=== PATIENT | female | born 1950 | race Caucasian/White ===

== ENCOUNTER → 2016-09-30 | Outpatient (REF) | payer MEDICARE, OTHER | LOC: M LAB REF 16:26 | PROVIDERS: ATTEND Internal Medicine Medical Oncology | DX: C50.919 Malignant neoplasm of unspecified site of unspecified female breast (principal) ==

== ENCOUNTER → 2016-12-31 | Outpatient (REF) | payer MEDICARE, OTHER | LOC: M LAB REF 17:22 | PROVIDERS: ATTEND Internal Medicine Medical Oncology | DX: C50.919 Malignant neoplasm of unspecified site of unspecified female breast (principal) ==

== ENCOUNTER → 2017-01-28 | Outpatient (REF) | payer MEDICARE, OTHER | LOC: M LAB REF 13:23 | PROVIDERS: ATTEND Internal Medicine Medical Oncology | DX: C50.911 Malignant neoplasm of unspecified site of right female breast (principal) ==

== ENCOUNTER → 2017-02-23 | Outpatient (REF) | payer MEDICARE, OTHER | LOC: M LAB REF 12:52 | PROVIDERS: ATTEND Internal Medicine Medical Oncology | DX: C50.919 Malignant neoplasm of unspecified site of unspecified female breast (principal) ==

== ENCOUNTER → 2017-03-25 | Outpatient (REF) | payer MEDICARE, OTHER ==
[~2017-03-25] MED LIST: ASPI81TAEC PO; CALC1TAB49 PO; CALCIUM CITRATE PO; COMB0.2S OD; Combigan; DITR1TAB PO; EFFE37.527 PO; FLUC10TA PO; GABA-279 PO; IBRA125C PO; IBUP-1114 PO; LETR2.5T2 PO; LIPI20TA PO; MULT1TAB10 PO; PROT1TAB2 PO; VITMTA PO; XGEVINJ SC; [UNRECOGNIZED DRUG - OTHER] PO; femara PO
== END ==
LOC: M LAB REF 13:36
PROVIDERS: ATTEND Internal Medicine Medical Oncology
DX: C50.919 Malignant neoplasm of unspecified site of unspecified female breast (principal)

== ENCOUNTER → 2017-05-25 | Outpatient (REF) | payer MEDICARE, OTHER | LOC: M LAB REF 17:27 | PROVIDERS: ATTEND Internal Medicine Medical Oncology | DX: C50.919 Malignant neoplasm of unspecified site of unspecified female breast (principal) ==

== ENCOUNTER 2017-06-04 10:09 | Outpatient (RCR) | payer MEDICARE, OTHER ==
[2017-06-04] MEDS ORDERED: IBRA125C PO (21:27)
[2017-06-04] MEDS ORDERED: XGEVINJ SC (21:27)
[2017-06-04] MEDS ORDERED: [UNRECOGNIZED DRUG - OTHER] PO (21:27)
[2017-06-04] MEDS ORDERED: CALCIUM CITRATE PO (21:27)
[2017-06-04] MEDS ORDERED: LIPI20TA PO (21:27)
[2017-06-04] MEDS ORDERED: MULT1TAB10 PO (21:27)
[2017-06-04] MEDS ORDERED: PROT1TAB2 PO (21:27)
[2017-06-04] MEDS ORDERED: Combigan (21:27)
[2017-06-04] MEDS ORDERED: EFFE37.527 PO (21:27)
[2017-06-04] MEDS ORDERED: femara PO (21:27)
[2017-06-04] MEDS ORDERED: DITR1TAB PO (21:27)
[2017-06-04] MEDS ORDERED: VITMTA PO (23:04)
[2017-06-04] MEDS ORDERED: GABA-279 PO (23:04)
[2017-06-04] MEDS ORDERED: LETR2.5T2 PO (23:04)
[2017-06-04] MEDS ORDERED: COMB0.2S OD (23:04)
[2017-06-04] MEDS ORDERED: CALC1TAB49 PO (23:04)
[2017-06-04] MEDS ORDERED: IBUP-1114 PO (23:05)
[2017-06-06] MEDS ORDERED: ASPI81TAEC PO (09:29)
[2017-06-06] MEDS ORDERED: FLUC10TA PO (09:30)
== END 2017-06-05 | disposition home or self-care (01) ==
LOC: M PT 10:09
PROVIDERS: ATTEND Orthopaedic Surgery
DX: Z51.89 Encounter for other specified aftercare (principal); M43.06 Spondylolysis, lumbar region
CPT/HCPCS: 97110; 97140; 97162; G8978; G8979

== ENCOUNTER 2017-06-04 21:04 | Inpatient (IN) | payer MEDICARE, OTHER ==
[~2017-06-04] VITALS: Ht 162.6 cm; Wt 80.2 kg
[2017-06-04] MEDS ORDERED: PROT1TAB2 PO (21:27)
[2017-06-04] MEDS ORDERED: DITR1TAB PO (21:27)
[2017-06-04] MEDS ORDERED: MULT1TAB10 PO (21:27)
[2017-06-04] MEDS ORDERED: Combigan (21:27)
[2017-06-04] MEDS ORDERED: LIPI20TA PO (21:27)
[2017-06-04] MEDS ORDERED: IBRA125C PO (21:27)
[2017-06-04] MEDS ORDERED: CALCIUM CITRATE PO (21:27)
[2017-06-04] MEDS ORDERED: XGEVINJ SC (21:27)
[2017-06-04] MEDS ORDERED: [UNRECOGNIZED DRUG - OTHER] PO (21:27)
[2017-06-04] MEDS ORDERED: EFFE37.527 PO (21:27)
[2017-06-04] MEDS ORDERED: femara PO (21:27)
[2017-06-04 21:36] LABS: EOS # 0.1 10^3/uL (0.0-0.50); EOS % 1.2 % (0.0-3.0); IMMATURE GRANULOCYTE % 0.6 % (0-0); LYMPH # 1.8 10^3/uL (1.5-4.5); LYMPH % 38.3 % (24.0-44.0); MEAN CORPUSCULAR HEMOGLOBIN 38.4 pg (27.0-33.0); MEAN CORPUSCULAR HGB CONC 35.9 g/dl (32.0-36.5); MEAN CORPUSCULAR VOLUME 106.9 fl (80.0-96.0); MONO # 0.4 10^3/uL (0.0-0.8); MONO % 8.3 % (0.0-5.0); NEUTROPHILS # 2.5 10^3/uL (1.8-7.7); NEUTROPHILS % 51.6 % (36.0-66.0); PLATELET COUNT, AUTOMATED 197 10^3/uL (150-450); RED CELL DISTRIBUTION WIDTH 12.2 % (11.5-14.5); WHITE BLOOD COUNT 4.8 10^3/uL (4.0-10.0)
[2017-06-04 21:40] LABS: ADD MORPHOLOGY? NO
[2017-06-04 21:45] LABS: INR 0.93
[2017-06-04 21:59] LABS: ANION GAP 8 MEQ/L (8-16); BLOOD UREA NITROGEN 22 MG/DL (7-18); CALCIUM LEVEL 8.4 MG/DL (8.8-10.2); CARBON DIOXIDE LEVEL 23 MEQ/L (21-32); CHLORIDE LEVEL 105 MEQ/L (98-107); CREATININE FOR GFR 1.02 MG/DL (0.55-1.02); GLOMERULAR FILTRATION RATE 57.2 (>45); GLUCOSE, FASTING 169 MG/DL (80-110); POTASSIUM SERUM 3.8 MEQ/L (3.5-5.1); SODIUM LEVEL 136 MEQ/L (136-145)
--- NOTE | 2017-06-04 22:10 | REPUSA ---
CT of the head Clinical history: CVA. Technique: Multiple axial CT images were obtained through the head without administration of contrast . Findings: The ventricles and sulci are symmetric bilaterally. There is no evidence of acute hemorrhag e or infarct. There is no midline shift, mass effect, or extra-axial fluid collection. The osseous st ructures are unremarkable. The visualized paranasal sinuses and mastoid air cells are clear. Impression: Negative study.
[2017-06-04] MEDS ORDERED: ASPIRIN 81 MG CHEW TABLET PO ONE (22:45)
[2017-06-04] MEDS ORDERED: LETR2.5T2 PO (23:04)
[2017-06-04] MEDS ORDERED: COMB0.2S OD (23:04)
[2017-06-04] MEDS ORDERED: CALC1TAB49 PO (23:04)
[2017-06-04] MEDS ORDERED: VITMTA PO (23:04)
[2017-06-04] MEDS ORDERED: GABA-279 PO (23:04)
[2017-06-04] MEDS ORDERED: IBUP-1114 PO (23:05)
[2017-06-05] VITALS (7 sets, daily range): BP systolic 113–155; BP diastolic 56–75
[2017-06-05] MEDS ORDERED: ONDANSETRON 4MG/2ML VIAL (J2405) IV PRN (00:15)
[2017-06-05] MEDS: HEPARIN SOD (PORCINE) 5000 UNITS/ML VIAL SC SCH ×3 (01:23→21:21)
--- NOTE | 2017-06-05 01:40 | REPUSA ---
CLINICAL HISTORY: Headaches. TECHNIQUE: MRI of the brain was performed utilizing multiple sequences in axial, coronal and sagittal planes before and after the intravenous administration of contrast. 7 cc of ProHance were injected i ntravenously without complications. COMMENTS: The sella and parasellar region are unremarkable in appearance. The corpus callosum and cerebellar to nsils are of normal configuration and position. There are no intra or extra-axial collections. There is no mass effect or midline shift. There is no evidence of hematoma formation. There is no hydroceph alus. The visualized arterial structures demonstrate normal appearing flow voids. The seventh and eighth ne rve bundles are visualized and are unremarkable in appearance. Few foci of T2/FLAIR hyperintensity are noted in the bilateral periventricular and subcortical white matter compatible with mild chronic white matter ischemic changes. No abnormal enhancement is seen. Mild chronic mucosal inflammatory changes in the maxillary sinuses. IMPRESSION: 1. No acute intracranial pathology. 2. Mild chronic white matter microvascular ischemic changes. No abnormal enhancement is seen. Thank you for your kind referral of this patient.
--- NOTE | 2017-06-05 01:40 | REPUSA ---
CLINICAL HISTORY: Slurred speech. TECHNIQUE: Three dimensional [id number] angiography is performed of the [place]. 7 cc of ProHance were injected intravenously without complications. FINDINGS: The supraclinoid portions of the internal carotid arteries are of normal shape. The normal bifurcation is seen. The middle cerebral arteries are unremarkable in appearance. The posterior circu lation is visualized and shows no evidence of occlusion or aneurysm formation. The basilar tip is see n and shows no aneurysm formation. There is no evidence of beading to suggest vasculitis. IMPRESSION: MRA of the [place] is within normal limits. Thank you for your kind referral of this patient.
--- NOTE | 2017-06-05 02:40 | REPUSA ---
HISTORY: Suspected stroke. COMPARISON: None. TECHNIQUE: resonance angiography of the neck was performed at 1.5T with 2-D axial [id number] imag es. During the dynamic injection of 8cc ProHance contrast material intravenously coronal 3D time-of-f light MRA of the neck was performed. All images are retrospectively targeted and reformatted in three dimensions according to standard protocol. Stenoses were measured according to NASCET criteria. Sour ce images were reviewed. FINDINGS: RIGHT CAROTID ARTERIES: Normal right common carotid artery (CCA). Normal right common carotid bulb. Normal origin of the righ t internal carotid (ICA) artery without a hemodynamically significant stenosis. Normal visualized cer vical portion of the right internal carotid artery. Normal origin of the right external carotid artery (ECA). LEFT CAROTID ARTERIES: Normal left common carotid artery (CCA). Normal left common carotid bulb. Normal origin of the left i nternal carotid (ICA) artery without a hemodynamically significant stenosis. Normal visualized cervic al portion of the left internal carotid artery. Normal origin of the left external carotid artery (ECA). VERTEBRAL ARTERIES: Normal flow within the bilateral vertebral artery without a hemodynamically significant stenosis. IMPRESSION: Normal bilateral cervical carotid and vertebral arteries. Thank you for your kind referral of this patient
--- NOTE | 2017-06-05 03:02 | HPE ---
DATE OF ADMISSION: 06/05/2017 PRIMARY CARE PROVIDER: Dr. Davies. ONCOLOGIST: Dr. Megan David. NEUROLOGY CONSULTED: Dr. Lino. CHIEF COMPLAINT: Aphasia. HISTORY OF PRESENT ILLNESS: This is a 67-year-old female patient with underlying medical history of metastatic breast cancer, initially diagnosed with breast cancer 1998, with metastasis to the bones, to the thoracic cavity, as well as to the patient's right eye, follows Dr. Megan David with hormonal treatment. Last PET scan was November 2016. Patient also with left lower extremity sciatica with pain on pain medication, recently started on Neurontin. The patient stated that she has not been taking Neurontin since Wednesday due to dizziness, generalized weakness and diarrhea, which patient associated with Neurontin. Patient was in her normal state of health. Around 9 p.m. patient developed expressive aphasia having trouble expressing herself and finding words with also left-sided facial droop. Subsequently brought to the emergency room with NIH stroke scale of 1. History limited because of patient's expressive ability. Patient is also not able to write and communicate. Denies any chest pain, pressure or discomfort, headache, vision change, hearing change. No focal motor deficit. Able to move bilateral upper and lower extremity, arms. Denies any shortness of breath, palpitations. No history of atrial fibrillation. Case was discussed with emergency department (ED) provider, as well as neurologist. Given patient still was in the time frame for fibrinolytics, but patient has low NIH stroke of 1, with improving symptoms in the emergency room and with no other focal neurological deficits and furthermore patient does have alternative explanation of possibly symptoms secondary to metastatic cancer given patient did have breast cancer metastasis to the right eye. Furthermore patient was told by patient's primary care provider, Dr. Davies that she should not receive fibrinolytics in the future due to her intracranial vascular lesions which the patient is not certain what it is, therefore, patient and family have agreed that at this time will elect against fibrinolytics at this time due to the multiple contraindications and the possibility of metastatic lesion to the brain and will elect to proceed with further workup in terms of MRI. Patient's family is aware that most likely after MRI, given the length of time necessary for the workup, patient will be outside of the fibrinolytic window after the workup is complete. Case discussed with Dr. Lino, neurology, who is agreeable with the current plan. Subsequently, the patient is admitted to the hospital for further workup. ALLERGIES: To MEPERIDINE. PAST MEDICAL HISTORY: 1. Metastatic breast cancer with metastasis to the bones, as well as thoracic cavity, as well as right eye. 2. Left-sided sciatica. PAST SURGICAL HISTORY: 1. Lumpectomy, right-sided breast 1999. 2. (C) section. FAMILY HISTORY: Brother with myocardial infarction (OH) age 50s and mother with OH age 70s. SOCIAL HISTORY: Patient denies alcohol or smoking or illicit drug use. REVIEW OF SYSTEMS: Limited, but patient reported having problem expressing her words with expressive aphasia. Facial droop as per family. Reported on Wednesday having dizziness and diarrhea and weakness, which patient attributed to Neurontin. All other review of systems are negative. HOME MEDICATION: - ibuprofen 400 mg by mouth every 6 hours as needed - calcium citrate and vitamin D one tablet by mouth twice a day - Xgeva subcutaneously once a month - Lipitor 20 mg by mouth nightly - Combivent eye drops twice a day - letrozole 2.5 mg by mouth daily - multivitamin one tablet by mouth daily - oxybutynin 10 mg by mouth daily - Ibrance 125 mg by mouth daily - Protonix 40 mg by mouth twice a day - Effexor 37.5 mg by mouth nightly PHYSICAL EXAMINATION: VITAL SIGNS: Temperature 98, pulse 89, blood pressure 147/79, pulse oximetry 96% on room air. GENERAL: Patient alert, but having trouble expressing herself, follows commands, in no acute distress. HEENT: Normocephalic. Noticing very minimal left-sided facial flattening on nasolabial fold. Pupils are equal bilaterally, reactive to light. Atraumatic. PULMONARY: Bilaterally clear to auscultation. CARDIAC: Regular rate and rhythm. Normal S1, S2. ABDOMEN: Soft, nontender. Positive bowel sounds. EXTREMITIES: No clubbing, cyanosis or edema. NEUROLOGIC: Noticing patient has expressive aphasia. Other cranial nerves II-XII are grossly intact. Upper and lower strength bilaterally symmetrical 5/5. Finger to nose bilaterally intact. Sensation to light touch intact. No other neurological deficit has been detected. EKG sinus rhythm with left bundle branch block, no previous reference. LABORATORY: WBC 4.8, hemoglobin and hematocrit 12.3/37, platelets 197. Chemistry: Sodium 136, potassium 3.8, chloride 105, bicarbonate 23, BUN 22, creatinine 1.02. Cardiac enzymes negative. CT scan of the head within normal limits. ASSESSMENT AND PLAN: This is a 67-year-old female patient with underlying medical history of metastatic breast cancer with metastases (METS) to thoracic cavity, to the bones, as well as to the right eye with left-sided sciatica, presented with expressive aphasia and questionable facial droop. 1. Expressive aphasia and questionable facial droop. Differential diagnosis includes CVA versus metastatic lesion to the brain versus medication side effects. Will get MRI of the brain with and without contrast, as well as MRA of the brain and MRA of the neck. Neurology has been consulted. Discussed with the patient the risks and benefits of fibrinolytics. It was decided based on the NIH stroke scale, as well as underlying cancer with possible metastasis, as well as patient's knowledge that patient's primary care provider has previously advised against fibrinolytics given patient's previous MRI workup, family and physician both agree that it should be proceeded with workup and with the thought that the risk of fibrinolytic outweighs the benefit and will proceed with the workup of MRI with the understanding that most likely patient will be outside of the window after the MRI given the time necessary for further workup. CT scan of the head appreciated. Will follow echocardiogram. Will get lower extremity Dopplers to rule out deep venous thrombosis (DVT). Consulted neurology. Aspirin has been given. Speech and swallow, physical therapy (PT), occupational therapy (OT). Aspiration precautions. Fall precautions. Pureed diet until seen by speech and swallow with nectar thickened. Continue statin and aspirin. Permissive hypertension. Monitor blood pressure. Hypercoagulable workup as ordered. 2. Hypertension. Patient not on any blood pressure medication at home. Likely secondary to neurological event. Permissive hypertension for the next 24-48 hours. Will monitor blood pressure. 3. Sciatica. Medication as ordered. Will monitor. 4. Metastatic breast cancer. Outpatient followup. Continue current medication. 5. Left bundle branch block with no previous reference. Patient denies any chest pain. Telemetry monitoring. Serial cardiac enzymes. Repeat EKG. 6. DVT prophylaxis. Heparin subcutaneously. DISPOSITION PLANNING: Pending further workup for patient's underlying neurological issue, clinical improvement, PT/OT, speech and swallow, neurology consultation.
[2017-06-05 05:32] LABS: MEAN CORPUSCULAR HEMOGLOBIN 37.8 pg (27.0-33.0); MEAN CORPUSCULAR HGB CONC 35.3 g/dl (32.0-36.5); MEAN CORPUSCULAR VOLUME 107.2 fl (80.0-96.0); RED CELL DISTRIBUTION WIDTH 12.4 % (11.5-14.5)
[2017-06-05 05:48] LABS: ANION GAP 9 MEQ/L (8-16); BLOOD UREA NITROGEN 21 MG/DL (7-18); CALCIUM LEVEL 8.3 MG/DL (8.8-10.2); CARBON DIOXIDE LEVEL 24 MEQ/L (21-32); CHLORIDE LEVEL 106 MEQ/L (98-107); CHOLESTEROL LEVEL 168 MG/DL (<200); CREATININE FOR GFR 0.96 MG/DL (0.55-1.02); GLOMERULAR FILTRATION RATE > 60.0 (>45); GLUCOSE, FASTING 142 MG/DL (80-110); MAGNESIUM LEVEL 2.2 MG/DL (1.8-2.4); POTASSIUM SERUM 3.8 MEQ/L (3.5-5.1); SODIUM LEVEL 139 MEQ/L (136-145); T UPTAKE 42 % (30-39); THYROXINE (T4) 10.9 UG/DL (4.5-12.0); TRIGLYCERIDES LEVEL 150 MG/DL (<150)
--- NOTE | 2017-06-05 07:53 | REP ---
Chest two views HISTORY: Infarction Comparison: 02/03/2017 A 5 mm parenchymal nodule is present in the left upper lobe unchanged in size compared to the previous study. The right lung is clear. The heart is normal in size. The pulmonary vasculature is normal in appearance. The bony structure is intact. IMPRESSION: 1. No acute disease. 2. There is a 5 mm parenchymal nodule in the left upper lobe unchanged compared to the previous study. Signed by David Ortega MD 06/05/2017 07:44 A
--- NOTE | 2017-06-05 08:33 | ECGEPIP ---
Stationary ECG Study [facility] - ED Test Date: 2017-06-04 Pat Name: MAURICIO VASQUEZ Department: Room: [place] [address] Gender: F Book Retailer: adina : [id number] Requested By: LAURA Heard Order Number: [id number] Reading MD: Stanford Langley Measurements Intervals [place] Rate: 98 P: 64 CA: 160 QRS: -5 QRSD: 123 T: 110 QT: 377 QTc: 482 Interpretive Statements SINUS RHYTHM LEFT BUNDLE BRANCH BLOCK NO PRIORS Electronically Signed On 06-05-2017 8:33:22 EDT by Stanford Langley
[2017-06-05] MEDS: ASPIRIN 81 MG ENTERIC TAB PO SCH (09:54)
[2017-06-05] MEDS: MULTIVITAMINS/MINERALS THERAP 1 TAB PO SCH (09:54)
[2017-06-05] MEDS: PANTOPRAZOLE 40MG TAB (PROTONIX) PO SCH ×2 (09:54→21:20)
[2017-06-05] MEDS: oxyBUTYnin *DITROPAN XL* 5 MG TABCR PO SCH (09:54)
[2017-06-05] MEDS: LETROZOLE 2.5 MG TAB PO SCH (09:55)
--- NOTE | 2017-06-05 11:22 | REP ---
BILATERAL LOWER EXTREMITY DUPLEX VEINS: HISTORY: Edema. RIGHT LOWER EXTREMITY: There are no filling defects in the deep venous system. The deep venous system is patent. IMPRESSION: There is no deep venous thrombosis. LEFT LOWER EXTREMITY: There are no filling defects in the deep venous system. The deep venous system is patent. IMPRESSION: There is no deep venous thrombosis. Signed by David Ortega MD 06/05/2017 11:25 A
--- NOTE | 2017-06-05 13:05 | CR ---
DATE OF CONSULTATION: 06/05/2017 REASON FOR CONSULTATION: Suspected transient ischemic attack (TIA). Trang Herron is a 67-year-old female with past medical history significant for metastatic breast cancer with recent diagnosis to metastatic lesions of the right eye, currently undergoing radiation therapy. The patient presented with symptoms of sudden expressive aphasia. The patient states that the symptoms persisted, though were improving during the emergency room (ER) stay. The symptoms essentially resolved soon after having her MRI of her brain last night. The patient's MRI was negative for any acute stroke. Small-vessel ischemic disease was noted. The patient does have a history of smoking in the past and has hyperlipidemia, along with hypercoagulable state with underlying malignancy. Her age is also a risk factor. The patient at the present time denies any change in language and states that her sensation through her body is at baseline. She has peripheral neuropathy of her feet and has residual left lower extremity weakness and numbness from known sciatica. She denies any change in baseline vision and sensation through the body compared to baseline, either. She states that she is not having diplopia or vertigo or dysarthria. REVIEW OF SYSTEMS: 14-point review of systems is obtained and is negative except as per history of present illness (HPI). ALLERGIES: MEPERIDINE. MEDICATIONS: - Lipitor 20 mg by mouth nightly - letrozole 2.5 mg by mouth every day - multivitamin by mouth every day - oxybutynin 10 mg by mouth every day - Combivent eyedrop twice a day - Xgeva subcutaneously once a month - calcium citrate plus vitamin D by mouth twice a day - ibuprofen 400 mg by mouth every 6 hours as needed pain - Ibrance 125 mg by mouth every day - Protonix 40 mg by mouth twice a day - Effexor 37.5 mg by mouth nightly PAST MEDICAL HISTORY: Metastatic breast cancer with metastasis to bone, as well as thoracic cavity, as well as right eye. Left-sided sciatica with a residual left foot drop and paresthesias. PAST SURGICAL HISTORY: Lumpectomy right breast 1998. (C) section. FAMILY HISTORY: Noncontributory. SOCIAL HISTORY: The patient denies use of any alcohol or illicit drugs or tobacco presently but is a former smoker. PHYSICAL EXAMINATION: Blood pressure is 151/70, pulse rate 98, respiratory rate is 16, temperature 98.3 degrees Fahrenheit, oxygenation 96% on room air. The patient is awake, alert, oriented to person, place, and time. Speech, language, comprehension, and repetition are intact. Pupils are 3 mm, round, reactive to light. Extraocular movements are intact in all directions. Sensation to V1, V2, and V3 is intact to light touch. Right eye has baseline blurring of the vision and no facial asymmetry to activation. Palate elevates symmetrically. Tongue is midline. No weakness of sternocleidomastoids bilaterally. Hearing is subjectively equal to finger rub. No weakness of sternocleidomastoids bilaterally. Tongue is midline. There is no pronator drift. Strength is 5/5 including bilateral deltoids, biceps, triceps, handgrip, iliopsoas, quadriceps, right tibialis anterior, grade 3+ tibialis anterior strength on the left foot. Sensory is intact to light touch, temperature in all four extremities with reduced light touch sensation in the left foot and leg. Coordination: Normal [id number] without any signs of ataxia or dysmetria. Gait deferred. IMAGING: MRI brain, negative for any acute ischemic stroke. MR angiogram read as normal without any intracranial stenosis or aneurysms. ASSESSMENT: Suspect transient ischemic attack with Broca aphasia, now resolved, in setting of stroke risk factors, including past tobacco abuse, hyperlipidemia, age, and known malignancy. PLAN: Start aspirin 81 mg by mouth every day. Obtain carotid ultrasound. Echocardiogram. Continue telemetry monitoring. Hypercoagulable vascular workup has been ordered and is pending. Thyroid-stimulating hormone (TSH) 3.22. Erythrocyte sedimentation rate (ESR) is 3. Normal complete blood count (CBC). Complete metabolic panel (CMP) with slightly elevated glucose. Troponin is less than 0.02 times two. Physical therapy (PT) and occupational therapy (OT). Optimize hypertension and hyperlipidemia. Continue treatment for underlying malignancy under the care of oncology.
[2017-06-05] MEDS ORDERED: ATORVASTATIN 20 MG TAB PO SCH (21:00)
[2017-06-05] MEDS: VENLAFAXINE **XR** 37.5 MG CAPSULE PO SCH (21:25)
[2017-06-06] VITALS: BP 131/60
[2017-06-06 04:00] VITALS: BP 127/70
--- NOTE | 2017-06-06 04:46 | IPN ---
DATE OF SERVICE: 06/05/2017 The patient is feeling well this morning. She has no focal weakness. No numbness. No difficulty with word finding, although perhaps her speech is slightly slower than normal. Temperature 99.3, pulse 97, respiratory rate 18, blood pressure 130/65, 96% on room air. Intake and output (I and O) notable for a net fluid balance. She is awake, appropriately interactive, pleasantly conversant. Mucous membranes are moist. Neck is supple. Breathing is symmetrical and rested. Heart is distant sounding. Abdomen soft, doughy, nontender. She has normal mood and affect. White cell count 16, hemoglobin 12.6, platelets of 181. BUN 21, creatinine 0.96. CK and troponins are negative times three. Hypercoagulability workup is pending. Extremity Doppler is negative. My assessment is as follows: This is a 67-year-old with a transient ischemic attack (TIA) and Broca's aphasia, resolved. Plan is as follows: 1. Neurologic. I have discussed this case in person with Dr. Lino. Plan is for TIA. Monitor on telemetry for another 24 hours. Plan for possible discharge tomorrow. Secondary prevention in the form of statin drug and aspirin. 2. Patient has hypertension. Will monitor this clinically. 3. Patient has history of sciatica. Can be provided with a warm pack as needed. 4. Patient has left bundle branch block on EKG. 5. Patient has appropriate deep venous thrombosis (DVT) prophylaxis. 6. I did discuss this case in person with patient's at bedside. At this point, given that her neurologic status has resolved, will advance her diet. No role for speech/swallow.
[2017-06-06 07:02] LABS: MEAN CORPUSCULAR HEMOGLOBIN 37.9 pg (27.0-33.0); MEAN CORPUSCULAR HGB CONC 35.2 g/dl (32.0-36.5); RED CELL DISTRIBUTION WIDTH 12.2 % (11.5-14.5); WHITE BLOOD COUNT 3.7 10^3/uL (4.0-10.0)
[2017-06-06 07:10] LABS: MEAN CORPUSCULAR VOLUME 107.7 fl (80.0-96.0)
[2017-06-06 07:18] LABS: ANION GAP 8 MEQ/L (8-16); BLOOD UREA NITROGEN 17 MG/DL (7-18); CALCIUM LEVEL 8.5 MG/DL (8.8-10.2); CARBON DIOXIDE LEVEL 24 MEQ/L (21-32); CHLORIDE LEVEL 107 MEQ/L (98-107); CREATININE FOR GFR 0.78 MG/DL (0.55-1.02); GLOMERULAR FILTRATION RATE > 60.0 (>45); GLUCOSE, FASTING 123 MG/DL (80-110); MAGNESIUM LEVEL 2.2 MG/DL (1.8-2.4); POTASSIUM SERUM 3.8 MEQ/L (3.5-5.1); SODIUM LEVEL 139 MEQ/L (136-145)
--- NOTE | 2017-06-06 07:20 | ECHO ---
DATE OF PROCEDURE: 06/05/2017 REFERRING PHYSICIAN: Dr. Halley Benito. INDICATION: Transient cerebral ischemia, unspecified. HEIGHT: 163 cm. WEIGHT: 82 kg. MEASUREMENTS: Left atrium: 3.3 cm Aortic root: 2.7 cm Ventricular septum: 1.42 cm Posterior wall: 1.35 cm Left ventricle diastole: 3.1 cm LVOT: 2.1 cm Inferior vena cava: 1.6 cm DOPPLER MEASUREMENTS: Aortic valve velocity: 105 cm/s LVOT velocity: 80.5 cm/s Mitral E velocity: 63.2 cm/s Mitral A velocity: 120 cm/s Mild tricuspid regurgitation. Estimated right ventricular systolic pressure 31 mmHg assuming an atrial pressure of 5 mmHg. MITRAL ANNULAR TISSUE DOPPLER: E-prime septal: 5.4 cm/s E-prime lateral: 7.0 cm/s DESCRIPTION: Rhythm was sinus. This was a moderately technically difficult echocardiogram. No pericardial effusion. This was a 2D, M-mode, color flow Doppler and pulsed wave Doppler examination and included mitral annular tissue Doppler. CONCLUSIONS: 1. Mild concentric left ventricular hypertrophy. No regional wall motion abnormalities. Normal LV systolic function. LVEF 65%-70% by visual estimate. Grade 1 LV diastolic dysfunction. 2. Mild aortic valve sclerosis of a 3-cusp aortic valve. No aortic regurgitation. 3. Moderate mitral annular calcification. No mitral regurgitation. No mitral stenosis. 4. Suggestive of very mild elevation of estimated right ventricle systolic pressure.
[2017-06-06 08:00] VITALS: BP 122/59
[2017-06-06] MEDS: HEPARIN SOD (PORCINE) 5000 UNITS/ML VIAL SC SCH (09:00)
[2017-06-06] MEDS ORDERED: PALBOCICLIB 125 MG PO SCH (09:00)
[2017-06-06] MEDS ORDERED: ASPI81TAEC PO (09:29)
[2017-06-06] MEDS ORDERED: FLUC10TA PO (09:30)
[2017-06-06] MEDS: MULTIVITAMINS/MINERALS THERAP 1 TAB PO SCH (10:13)
[2017-06-06] MEDS: VENLAFAXINE **XR** 37.5 MG CAPSULE PO SCH (10:14)
[2017-06-06] MEDS: oxyBUTYnin *DITROPAN XL* 5 MG TABCR PO SCH (10:14)
[2017-06-06] MEDS: ASPIRIN 81 MG ENTERIC TAB PO SCH (10:14)
[2017-06-06] MEDS: PANTOPRAZOLE 40MG TAB (PROTONIX) PO SCH (10:14)
[2017-06-06] MEDS: LETROZOLE 2.5 MG TAB PO SCH (10:14)
--- NOTE | 2017-06-06 11:54 | DSES ---
DATE OF ADMISSION: 06/05/2017 DATE OF DISCHARGE: 06/06/2017 SPECIALISTS INVOLVED IN THE CARE: Include Nadeen Lino MD. No complications of the stay. No procedures performed during her stay. DISCHARGE DIAGNOSES: 1. Transient ischemic attack (TIA). 2. Metastatic breast cancer with metastases to bones, thoracic cavity, and right eye. 3. Sciatica. 4. Hypercholesterolemia. 5. Overactive bladder. 6. Left bundle branch block. 7. Thrush Following is a summary of her hospitalization: This is a 67-year-old who presented with Broca aphasia. Was admitted through the hospitalist service. Has a history of breast cancer with metastatic disease. Underwent intense imaging, including carotid MRI, brain MRI, brain MRA, lower extremity Doppler, which showed no significant pathology. Was seen by neurology. Was already on a statin drug. Was started on aspirin. Had no recurrence of symptoms. No significant arhythmia on the monitor. On day of discharge, she is feeling well. She has returned to normal fluid language. No pain, chest pain, shortness of breath. She was having some sore throat, which appeared to be thrush. Temperature is 97.5, pulse 58, respiratory rate 18, blood pressure 122/59, 97% on room air. She is awake, appropriately interactive, pleasantly conversant. Moist mucous membranes. There is some curdy findings under her tongue or oropharynx. Breathing is symmetrical and rested. Heart is in a regular rate and rhythm. Abdomen soft, doughy, nontender. White cell count 3.7, hemoglobin 11.8, platelets of 143. BUN is 17, creatinine 0.8. DISCHARGE INSTRUCTIONS: Include the following: Followup with Dr. Davies and Dr. David as previously scheduled. Followup with Dr. Lino per his office instructions. Call during the work week for instructions. MEDICATIONS AT THE TIME OF DISCHARGE: Include: - aspirin 81 mg by mouth daily - diflucan 100 mg by mouth daily for 5 days - atorvastatin 20 mg by mouth daily at bedtime - calcium supplement - Combigan one drop right eye twice daily - Xgeva every 28 days - ibuprofen every 6 hours as needed for pain - letrozole 2.5 mg by mouth daily - multivitamin tablet daily - oxybutynin 10 mg by mouth daily - Ibrance 125 mg by mouth daily - Protonix 40 mg by mouth twice daily - venlafaxine 37.5 mg by mouth daily at bedtime Edited: pham 06/07/2017 1257 MTDD
[2017-06-11 00:06] LABS: PROTEIN C ANTIGEN 109 % (60-150); PROTEIN S ANTIGEN FREE 85 % (57-157); PROTEIN S ANTIGEN TOTAL 98 % (60-150); SJOGREN'S ANTI SS-A <0.2 AI (0.0-0.9); SJOGREN'S ANTI SS-B <0.2 AI (0.0-0.9)
== END 2017-06-06 11:15 | disposition home or self-care (01) | DRG 69 ==
LOC: M ED 21:04 → M ED INP 06-05 00:09
PROVIDERS: ADMIT Hospitalist; ATTEND Internal Medicine
DX: G45.9 Transient cerebral ischemic attack, unspecified (principal); R47.01 Aphasia; C79.49 Secondary malignant neoplasm of other parts of nervous system; B37.0 Candidal stomatitis; C79.51 Secondary malignant neoplasm of bone; I10 Essential (primary) hypertension; I44.7 Left bundle-branch block, unspecified; E78.00 Pure hypercholesterolemia, unspecified; I73.9 Peripheral vascular disease, unspecified; Z88.8 Allergy status to other drugs, medicaments and biological substances; Z79.899 Other long term (current) drug therapy; Z87.891 Personal history of nicotine dependence; Z92.3 Personal history of irradiation; Z85.3 Personal history of malignant neoplasm of breast; Z79.82 Long term (current) use of aspirin

== ENCOUNTER 2017-06-30 11:00 | Outpatient (RCR) | payer MEDICARE, OTHER | END 2017-07-06 | LOC: M PT 11:00 | PROVIDERS: ATTEND Orthopaedic Surgery | DX: Z51.89 Encounter for other specified aftercare (principal); M43.06 Spondylolysis, lumbar region ==

== ENCOUNTER 2017-07-14 11:00 | Outpatient (RCR) | payer MEDICARE, OTHER | END 2017-08-05 | LOC: M PT 11:00 | PROVIDERS: ATTEND Orthopaedic Surgery | DX: Z51.89 Encounter for other specified aftercare (principal); M43.06 Spondylolysis, lumbar region ==

== ENCOUNTER → 2017-07-20 | Outpatient (REF) | payer MEDICARE, OTHER | LOC: M LAB REF 15:27 | PROVIDERS: ATTEND Internal Medicine Medical Oncology | DX: C50.919 Malignant neoplasm of unspecified site of unspecified female breast (principal) ==

== ENCOUNTER → 2017-08-09 | Outpatient (REF) | payer MEDICARE, OTHER | LOC: M LAB REF 16:29 | PROVIDERS: ATTEND Internal Medicine | DX: N39.0 Urinary tract infection, site not specified (principal) ==

== ENCOUNTER → 2017-08-19 | Outpatient (REF) | payer MEDICARE, OTHER | LOC: M LAB REF 14:01 | PROVIDERS: ATTEND Internal Medicine Medical Oncology | DX: C50.919 Malignant neoplasm of unspecified site of unspecified female breast (principal) ==

== ENCOUNTER → 2017-09-23 | Outpatient (REF) | payer MEDICARE, OTHER | LOC: M LAB REF 13:58 | DX: C50.919 Malignant neoplasm of unspecified site of unspecified female breast (principal) | CPT/HCPCS: 86300 ==

== ENCOUNTER → 2017-11-17 | Outpatient (REF) | payer MEDICARE, OTHER ==
[2017-11-19 08:08] LABS: CA 27.29 49.8 U/mL (0.0-38.6)
== END ==
LOC: M LAB REF 18:04
DX: C50.919 Malignant neoplasm of unspecified site of unspecified female breast (principal)
CPT/HCPCS: 86300

== ENCOUNTER → 2017-11-18 | Outpatient (CLI) | payer MEDICARE, OTHER | LOC: M RAD 12:02 | DX: R09.89 Other specified symptoms and signs involving the circulatory and respiratory systems (principal) | CPT/HCPCS: 71046 ==

== ENCOUNTER 2017-12-06 07:39 | Outpatient (RCR) | payer MEDICARE, OTHER | END 2018-01-03 | disposition home or self-care (01) | LOC: M PT 07:39 | DX: Z51.89 Encounter for other specified aftercare (principal); M54.32 Sciatica, left side | CPT/HCPCS: 97110 ==

== ENCOUNTER → 2017-12-21 | Outpatient (REF) | payer MEDICARE, OTHER ==
[2017-12-23 00:07] LABS: CA 27.29 50.3 U/mL (0.0-38.6)
== END ==
LOC: M LAB REF 13:13
DX: C50.919 Malignant neoplasm of unspecified site of unspecified female breast (principal)
CPT/HCPCS: 86300

== ENCOUNTER → 2018-01-18 | Outpatient (REF) | payer MEDICARE, OTHER ==
[2018-01-20 00:07] LABS: CA 27.29 51.4 U/mL (0.0-38.6)
== END ==
LOC: M LAB REF 13:32
DX: C50.919 Malignant neoplasm of unspecified site of unspecified female breast (principal)
CPT/HCPCS: 86300

== ENCOUNTER → 2018-02-15 | Outpatient (REF) | payer MEDICARE, OTHER ==
[2018-02-17 00:06] LABS: CA 27.29 50.2 U/mL (0.0-38.6)
== END ==
LOC: M LAB REF 13:19
DX: C50.111 Malignant neoplasm of central portion of right female breast (principal); C78.00 Secondary malignant neoplasm of unspecified lung; C79.51 Secondary malignant neoplasm of bone
CPT/HCPCS: 86300

== ENCOUNTER → 2018-02-17 | Outpatient (CLI) | payer MEDICARE, OTHER ==
[~2018-02-17] MED LIST changes: -ASPI81TAEC PO; -CALC1TAB49 PO; -CALCIUM CITRATE PO; -COMB0.2S OD; -Combigan; -DITR1TAB PO; -EFFE37.527 PO; -FLUC10TA PO; -GABA-279 PO; -IBRA125C PO; -IBUP-1114 PO; -LETR2.5T2 PO; -LIPI20TA PO; -MULT1TAB10 PO; +PROHANCE 279.3MG/ML 15ML VIAL (A9576) As Ordered; -PROT1TAB2 PO; -VITMTA PO; -XGEVINJ SC; -[UNRECOGNIZED DRUG - OTHER] PO; -femara PO
== END ==
LOC: M RAD 09:36
DX: C50.919 Malignant neoplasm of unspecified site of unspecified female breast (principal)
CPT/HCPCS: A9576

== ENCOUNTER → 2018-03-17 | Outpatient (REF) | payer MEDICARE, OTHER ==
[2018-03-19 00:14] LABS: CA 27.29 56.6 U/mL (0.0-38.6)
== END ==
LOC: M LAB REF 13:41
DX: C50.111 Malignant neoplasm of central portion of right female breast (principal); C78.00 Secondary malignant neoplasm of unspecified lung; C79.51 Secondary malignant neoplasm of bone; Z79.899 Other long term (current) drug therapy; Z79.811 Long term (current) use of aromatase inhibitors
CPT/HCPCS: 86300

== ENCOUNTER → 2018-04-14 | Outpatient (REF) | payer MEDICARE, OTHER ==
[2018-04-16 00:06] LABS: CA 27.29 56.7 U/mL (0.0-38.6)
== END ==
LOC: M LAB REF 13:13
DX: C50.111 Malignant neoplasm of central portion of right female breast (principal); C78.00 Secondary malignant neoplasm of unspecified lung; C79.51 Secondary malignant neoplasm of bone; Z79.811 Long term (current) use of aromatase inhibitors; Z79.899 Other long term (current) drug therapy
CPT/HCPCS: 86300

== ENCOUNTER → 2019-02-03 | Outpatient (CLI) | payer MEDICARE, OTHER ==
[~2019-02-03] MED LIST changes: +ASPI81TAEC PO; +CALC1TAB49 PO; +CALCIUM CITRATE PO; +CLAR10CA3 PO; +COMB0.2S OD; +Combigan; +DITR1TAB PO; +EFFE37.5 PO; +FLUC10TA PO; +GABA-1171 PO; +IBRA100C PO; +IBRA125C PO; +IBUP-1114 PO; +LETR2.5T2 PO; +LIPI20TA PO; +MULT1TAB10 PO; +PRED10TA2 PO; -PROHANCE 279.3MG/ML 15ML VIAL (A9576) As Ordered; +PROT1TAB2 PO; +TOBRSUS8 OS; +VITMTA PO; +XGEVINJ SC; +[UNRECOGNIZED DRUG - OTHER] PO; +femara PO
--- NOTE | 2019-02-03 12:01 | REP ---
Chest two views HISTORY: Wheezing Comparison: 11/18/2017 A 5 mm parenchymal nodule is present in the left upper lobe unchanged compared to the previous study. The right lung is clear. The heart is normal in size. The pulmonary vasculature is normal in appearance. Degenerative change is present in the thoracic spine. Calcification is present overlying the left scapula. IMPRESSION: 5 mm left upper lobe parenchymal nodule unchanged in size compared to the previous study. Electronically Signed by David Ortega MD 02/03/2019 11:53 A
== END ==
LOC: M RAD 10:54
PROVIDERS: ATTEND Internal Medicine Medical Oncology
DX: R09.89 Other specified symptoms and signs involving the circulatory and respiratory systems (principal)

== ENCOUNTER → 2019-08-15 | Outpatient (REF) | payer MEDICARE, OTHER ==
[~2019-08-15] MED LIST changes: +ENOX100I3 SC; +GLIP10TA6 PO; +LIDO1ADH10 TP; +METF500T13 PO
== END ==
LOC: M LAB REF 12:33
PROVIDERS: ATTEND Internal Medicine
DX: N39.0 Urinary tract infection, site not specified (principal)

== ENCOUNTER → 2019-08-27 | Outpatient (CLI) | payer MEDICARE, OTHER ==
[~2019-08-27] MED LIST changes: -ENOX100I3 SC; -GLIP10TA6 PO; -LIDO1ADH10 TP; -METF500T13 PO
[2019-08-27 10:08] LABS: HEMATOCRIT 36.4 % (36.0-47.0); HEMOGLOBIN 12.4 g/dl (12.0-15.5); MEAN CORPUSCULAR HEMOGLOBIN 36.9 pg (27.0-33.0); MEAN CORPUSCULAR HGB CONC 34.1 g/dl (32.0-36.5); MEAN CORPUSCULAR VOLUME 108.3 fl (80.0-96.0); PLATELET COUNT, AUTOMATED 206 10^3/uL (150-450); RED BLOOD COUNT 3.36 10^6/uL (4.00-5.40); WHITE BLOOD COUNT 3.9 10^3/uL (4.0-10.0)
[2019-08-27 10:34] LABS: ATYPICAL LYMPH 3 % (0-5); BASOPHILS 4 % (0-1); LYMPHOCYTES 34 % (16-44); MONOCYTES 12 % (0-5); NEUTROPHILS 47 % (28-66); PLATELET ESTIMATE NORMAL (NORMAL)
[2019-08-27 10:39] LABS: ALBUMIN 3.8 GM/DL (3.2-5.2); BILIRUBIN,TOTAL 0.6 MG/DL (0.2-1.0); CALCIUM LEVEL 8.8 MG/DL (8.8-10.2); CREATININE FOR GFR 1.04 MG/DL (0.55-1.30); GLOMERULAR FILTRATION RATE 55.6 (>39); POTASSIUM SERUM 4.3 MEQ/L (3.5-5.1); TOTAL PROTEIN 6.9 GM/DL (6.4-8.2)
== END ==
LOC: M LAB 09:39
PROVIDERS: ATTEND Internal Medicine Medical Oncology
DX: C50.911 Malignant neoplasm of unspecified site of right female breast (principal)

== ENCOUNTER → 2019-09-14 | Outpatient (CLI) | payer MEDICARE, OTHER ==
[~2019-09-14] MED LIST changes: +ENOX100I3 SC; +GASTROGRAFIN SOLUTION 30ML (Q9963) As Ordered ONE; +GLIP10TA6 PO; +ISOVUE-370 76% 100ML VIAL (Q9967) As Ordered ONE; +LIDO1ADH10 TP; +METF500T13 PO
--- NOTE | 2019-09-14 18:45 | REP ---
CT chest with IV contrast: History: New weight loss. Question progression of breast carcinoma. Comparison chest CT study is from July [address] contrast dose: 100 mL of intravenous Isovue [address] findings: There are stable bilateral small thyroid nodules. No supraclavicular or axillary lymphadenopathy is seen on either side. There is a linear area of vascular calcification in the left breast and there is a dystrophic calcification in the right breast. There is no evidence of pleural or pericardial effusion. There is no evidence of hilar or mediastinal mass or adenopathy. No lung mass or significant nodule is seen. There is circumferential calcification and slight thickening of the bronchial wall in the left lower lobe and segmental proximal bronchi. There is some inspissated endobronchial material in the posterior basal segment bronchus on the left. The prior study showed pneumonia with air bronchograms and bronchial narrowing in this distribution. The lung parenchyma shows minimal fibrosis but no consolidation today. There is no evidence of significant pulmonary nodule or mass lesion. There is good opacification of the pulmonary arterial tree and there is a branching filling defect in the right lower lobe central pulmonary arteries consistent with pulmonary embolus. There is a small clot in a segmental branch to the right upper lobe anteriorly as well. No left-sided pulmonary emboli are seen. There is some vascular calcification. The visualized upper abdominal structures are unremarkable. Bone window settings show degenerative disc spurring in the thoracic spine. No bony destructive lesion. Impression: 1. The study is positive for small pulmonary emboli to the right lower lobe and right upper lobe segmental branches. 2. There is chronic wall thickening, wall calcification, and slight luminal narrowing in the left lower lobe and proximal lower lobe segmental bronchi which is apparently due to old post inflammatory changes. 3. There are stable thyroid nodules bilaterally. There is no evidence of intrathoracic metastatic disease. Electronically Signed by Bharat Valles MD 09/14/2019 08:13 P
--- NOTE | 2019-09-14 18:47 | REP ---
CT abdomen and pelvis with IV and oral contrast: History: Weight loss. Rule out progression of breast carcinoma. CT contrast dose: 100 mL of intravenous Isovue 370. CT findings: Digital preliminary flour tester radiograph demonstrates an unremarkable bowel gas pattern. There is no focal liver lesion. Spleen is homogeneous in texture and normal in size. No adrenal masses observed on either side. There is a very small sliding-type hiatal hernia. No abnormalities noted in the gallbladder. The main pancreatic duct is slightly prominent, 3 mm in diameter. However, there is no evidence pancreatic mass. No retroperitoneal mass or adenopathy is seen. The kidneys enhance symmetrically are morphologically intact. The right kidney is a little smaller than the left. Normal caliber aorta. Small and large intestinal bowel loops are unremarkable. The uterus is somewhat retroverted and unremarkable. No ovarian lesion is appreciated. No bony destructive lesion is seen. There are dystrophic calcifications in the subcutaneous fat in the gluteal region which may be injection granulomas. Impression: Mildly dilated main pancreatic duct without pancreatic mass or cyst. Small sliding-type hiatal hernia. Otherwise negative. Electronically Signed by Bharat Valles MD 09/14/2019 08:13 P
== END ==
LOC: M RAD 15:30
PROVIDERS: ATTEND Internal Medicine Medical Oncology
DX: C50.911 Malignant neoplasm of unspecified site of right female breast (principal)
CPT/HCPCS: 71260; 74177; Q9963; Q9967

== ENCOUNTER → 2019-09-27 | Outpatient (REF) | payer MEDICARE, OTHER ==
[~2019-09-27] MED LIST changes: -GASTROGRAFIN SOLUTION 30ML (Q9963) As Ordered ONE; -ISOVUE-370 76% 100ML VIAL (Q9967) As Ordered ONE
== END ==
LOC: M LAB REF 12:16
PROVIDERS: ATTEND Internal Medicine
DX: N39.0 Urinary tract infection, site not specified (principal)

== ENCOUNTER → 2019-12-04 | Outpatient (REF) | payer MEDICARE, OTHER ==
[2019-12-04 15:28] LABS: HEMOGLOBIN A1c 7.7 %
== END ==
LOC: M LAB REF 14:57
PROVIDERS: ATTEND Internal Medicine
DX: E11.9 Type 2 diabetes mellitus without complications (principal)

== ENCOUNTER → 2019-12-26 | Outpatient (REF) | payer MEDICARE, OTHER ==
[~2019-12-26] MED LIST changes: +ELIQ5TAB PO
== END ==
LOC: M LAB REF 16:55
PROVIDERS: ATTEND Internal Medicine
DX: R30.0 Dysuria (principal)

== ENCOUNTER → 2020-01-04 | Outpatient (CLI) | payer MEDICARE, OTHER ==
[2020-01-04 11:35] LABS: BASO # 0.1 10^3/uL (0.0-0.2); EOS # 0.2 10^3/uL (0.0-0.5); EOS % 4.2 % (0.0-3.0); HEMATOCRIT 32.3 % (36.0-47.0); HEMOGLOBIN 11.2 g/dl (12.0-15.5); MEAN CORPUSCULAR HEMOGLOBIN 37.3 pg (27.0-33.0); MEAN CORPUSCULAR HGB CONC 34.7 g/dl (32.0-36.5); MEAN CORPUSCULAR VOLUME 107.7 fl (80.0-96.0); MONO # 0.3 10^3/uL (0.0-0.8); MONO % 7.7 % (0.0-5.0); NEUTROPHILS # 2.5 10^3/uL (1.5-8.5); NEUTROPHILS % 60.6 % (36.0-66.0); PLATELET COUNT, AUTOMATED 381 10^3/uL (150-450)
== END ==
LOC: M LAB 10:44
PROVIDERS: ATTEND Internal Medicine Medical Oncology
DX: C50.911 Malignant neoplasm of unspecified site of right female breast (principal)

== ENCOUNTER → 2020-01-25 | Outpatient (REF) | payer MEDICARE, OTHER | LOC: M LAB REF 12:19 | PROVIDERS: ATTEND Internal Medicine | DX: R93.3 Abnormal findings on diagnostic imaging of other parts of digestive tract (principal); R63.4 Abnormal weight loss ==

== ENCOUNTER → 2020-02-02 | Outpatient (REF) | payer MEDICARE, OTHER | LOC: M LAB REF 12:14 | PROVIDERS: ATTEND Internal Medicine | DX: C50.919 Malignant neoplasm of unspecified site of unspecified female breast (principal) ==

== ENCOUNTER → 2020-02-22 | Outpatient (CLI) | payer MEDICARE, OTHER ==
[~2020-02-22] MED LIST changes: +AFIN10TA PO; +DEXA0.5E2 PO; +DOXY100T PO; +EXEM25TA PO; +FLUC100T PO; +LANTINJ4; +LIDO1ADH10 TOP; -LIDO1ADH10 TP; +METF-838 PO; +OXYB10TA23 PO
--- NOTE | 2020-02-26 15:29 | RADONC ---
RADIATION ONCOLOGY CONSULTATION NOTE DATE: 02/22/2020 This is a telemedicine visit. The patient was informed of the risks including security breech, technological failure, inability to perform a comprehensive physical exam which could delay or prevent an accurate diagnosis, and potential complications from treatment decisions rendered over a telemedicine platform. The patient understands and consented to the use of telehealth services phone only. CHART NUMBER: [id number] ECOG PERFORMANCE STATUS: 0 CONSULTATION NOTE: Ms. Alford is a very pleasant 69-year-old white female who has been known to our department for 20 years. Apparently, she is being referred back to us for discussion of palliative external beam radiation therapy for an asymptomatic 2 cm mass in the head of the pancreas. HISTORY OF PRESENT ILLNESS: The patient's history dates back to November of 1998 when she first noticed a small lump under her right nipple. At that time, she underwent an excisional biopsy and pathology revealed a stage II A, T2, N0, M0 moderately differentiated infiltrating ductal carcinoma of the right breast. She underwent lumpectomy, axillary lymph node dissection and chemotherapy consisting of Cytoxan and Adriamycin for four cycles. She then presented to us on September 09, 1999 for consideration of postoperative radiation therapy for conservative breast management. At that time, we treated the patient's right breast to a dose of 4860 cGy in 27 fractions of 180 cGy each from 09/17/1999 through 10/24/1999. We then boosted the primary site for an additional 1200 cGy bringing the primary site to a total dose of 6060 cGy from 09/17/1999 through 10/03/1999. The patient did well and subsequently developed a metastatic lesion in her right retina. We saw the patient on 09/07/2013 for that and treated the patient to her right eye for a total dose of 3420 cGy in 19 fractions of 180 cGy each over 34 elapsed days from 09/20/2013 through 10/24/2013. That area did well. She was then lost to our followup but was subsequently treated and followed by her medical oncologist, Dr. Megan David while here and by another oncologist when seen in [place] in the [place]. Over the years the patient was found to have metastatic disease involving her left hilar region as well as left lung. She has had bone metastasis as well. The patient tells me that every 6 months or so another metastatic site will pop up. She has been managed and followed closely and has done remarkably well over the last two decades. She is presently being seen by medical oncology and was last seen by Dr. David on 02/14/2020. At that time, she discontinued letrozole and began exemestane 25 mg daily. She discontinued palbociclib and began everolimus 10 mg daily. A PET/CT scan was scheduled and will be done on March 05. She is being followed for hilar and abdominal focus with this PET scan. An MRI of the abdomen was done on 01/09/2020, which showed an abnormal pancreatic duct. Apparently, she was found to have a 2 cm mass in the head of the pancreas. Fine needle aspiration biopsy was undertaken at [facility] in [place] and pathology confirmed malignant cells consistent with metastatic breast adenocarcinoma. The patient remains asymptomatic. She reports that she has lost weight over the past few months but she relates this to her systemic therapy, which has caused loss of appetite. She is now presenting for consideration of external beam radiation therapy to the asymptomatic pancreatic head mass. PAST MEDICAL HISTORY: The patient's past medical history is positive for Sheikh's esophagus, DVTs, diabetes, hyperlipidemia, hypertension, pulmonary embolus September 14, 2019. ALLERGIES: The patient is allergic to DEMEROL AND GABAPENTIN. SOCIAL HISTORY: The patient quit smoking in 1983. She drinks alcohol socially. FAMILY HISTORY: The patient's family history is positive for father with prostate cancer. The patient's review of systems is noncontributory. She is doing remarkably well. She denies standard review of systems. REVIEW OF SYSTEMS: The patient's review of systems is noncontributory. She is doing remarkably well. Denies nausea, vomiting, fevers, chills, night sweats, diplopia, headaches, anxiety or depression, anorexia, weight loss, visual disturbances, chest pain, urinary or bowel difficulties, bone pain, or neurological problems. PHYSICAL EXAMINATION: Physical examination was deferred as this was a telephone consultation for COVID-19 precautions. ASSESSMENT: I had a very lengthy discussion with this patient. At this time, I am hesitant to recommend radiation to this 2 cm mass. I explained to the patient that this is different than a bone metastasis in an arm or a leg and that to treat the pancreatic mass to significant enough dose to obtain local control will undoubtedly even with IMRT treatment strategic planning analyst to a loss of a portion of the patient's kidneys and liver. It will also be radiating other critical structures such as small bowel, stomach, and spinal cord. I did explain that treatment is possible but I am not sure of the goals we are attempting to obtain. This is a totally asymptomatic small lesion in the abdomen and therefore, the role is truly not palliative in nature. There is nothing to palliate at this time. Should the lesion develop into a problem of course then that could be reconsidered. If this was truly a patient with a 22-year history of breast cancer and the only site of metastatic disease then that may be a different story. However, the patient has had a retinal metastasis as well as lung and hilar node metastasis and bone metastases in the past. Therefore, this is not a solitary metastasis although at this time it is the only solitary lesion we are sure of. I have not instructed the patient one way or the other at this time, but we did have a lengthy discussion with regards to my concerns and the trade offs in treatment. This is not toxic free treatment. Any damage to the kidneys and liver may compromise future ability to tolerate high doses of systemic therapy. Clearly kidneys and liver are quite important of the ability to tolerate medications of any type. The patient is scheduled for a repeat PET scan on March 05. I will be out of the office for the next 2 weeks and therefore, I have scheduled her for a re-consultation in person on March 14. [address] I can review the PET scan with her and see. If there are other sites suspicious for active metastatic disease, then clearly I would urgently recommend against radiation to a nonsymptomatic central abdominal mass. If however this is the only site of disease, I will review the scans with her and show her the critical organs in the vicinity. Radiation can then be considered if she strongly so desires. This patient does have an indolent type malignancy with an occasional metastatic lesion creeping up periodically over time. Because of that I do not wish to rule out radiation for a solitary site at this time. Once again, I have scheduled the patient for re-consultation on March 14 pending the results of her PET scan. We will review all the issues and come to a final decision on whether or not she wishes to undergo radiation to her abdomen. cc: MD Megan Garcia MD Julie LaPointe, MD
--- NOTE | 2020-03-22 09:12 | RADONC ---
RADIATION ONCOLOGY TELEMEDICINE PROGRESS NOTE DATE: 03/12/2020 This is a telemedicine visit. The patient was informed of the risks including security breech, technological failure, inability to perform a comprehensive physical exam which could delay or prevent an accurate diagnosis, and potential complications from treatment decisions rendered over a telemedicine platform. The patient understands and consented to the use of telehealth services phone only. CHART NUMBER: [id number] PROGRESS NOTE: Ms. Alford is a very pleasant 69-year-old white female who presented to me on 02/22/2020 to discuss the possibility of palliative radiation therapy for a 2 cm pancreatic mass. Since her last visit, a PET scan was undertaken that showed some mildly hypermetabolic uptake in the left inferior hilus. There was no uptake in the abdomen and no other signs of suspicious hypermetabolic activity. The patient remains asymptomatic with regards to her small pancreatic lesion. I once again had a lengthy discussion with this patient. She had been seen by her medical oncologist, Dr. Megan David, on 03/06/2020, who discussed the findings of the PET/CT scan done on 03/05/2020. The PET scan again revealed hypermetabolic uptake in the left hilus without observable adenopathy or mass. Dr. David had recommended further systemic therapy. The patient began denosumab on that day. She was also to begin exemestane and subsequently everolimus. She was discontinuing letrozole and palbociclib. In light of the fact that this patient is being treated with systemic therapy and my imminent chcf within the next couple few weeks, she will continue to be managed by her medical oncologist. I have made clear that there will be a replacement radiation oncologist here should she need one in the future. cc: Said MD Walter Sibley MD [place], MD Julie LaPointe, MD
== END ==
LOC: M ONCR 10:07
PROVIDERS: ATTEND Radiology Radiation Oncology
DX: C50.911 Malignant neoplasm of unspecified site of right female breast (principal); C78.89 Secondary malignant neoplasm of other digestive organs

== ENCOUNTER → 2020-03-04 | Outpatient (REF) | payer MEDICARE, OTHER ==
[~2020-03-04] MED LIST changes: -DOXY100T PO; -FLUC100T PO; -LANTINJ4
== END ==
LOC: M LAB REF 12:19
PROVIDERS: ATTEND Internal Medicine
DX: C50.919 Malignant neoplasm of unspecified site of unspecified female breast (principal)

== ENCOUNTER → 2020-03-05 | Outpatient (CLI) | payer MEDICARE, OTHER ==
--- NOTE | 2020-03-05 10:12 | REP ---
PET/CT: HISTORY: Restaging right breast carcinoma. Oligometastatic ER positive, HER2/yael negative breast cancer with indolent recurrence pattern involving retina, skeleton, and lymph nodes over many years. History of PET-CT from March 25, 2019 showing left hilar node metabolic activity. COMPARISONS: Comparison prior PET-CT study October 31, 2019. TECHNIQUE: 47 minutes following the intravenous injection of a 8.69 mCi dose of F-18 FDG, three-dimensional PET scintigraphy is acquired from the skull base to the proximal thighs. Triplanar noncontrast CT scanning is acquired through the same anatomic range for attenuation correction, and image registration with scan parameters optimized to minimize radiation exposure to the patient. PET scintigraphy and CT datasets were fused and displayed on a workstation with multiplanar and projection display capability. PET/CT FINDINGS: There is a mucous retention cyst in the right maxillary sinus. Head and neck soft tissues are otherwise unremarkable. No abnormal axillary, internal mammary, or breast or chest wall hypermetabolic uptake is seen. No abnormal pulmonary parenchymal hypermetabolic uptake is appreciated. Linear fibrotic changes are noted in the left lower lobe. There is persistent mildly hypermetabolic uptake in the left inferior hilus similar to the prior study. Maximum standard uptake value here is 3.61 today. Most recently on October 31, 2019, left hilar uptake maximum SUV value is 4.48. On June 22, 2016, it was 4.99. These values are similar. There is bronchial calcification here and no clear adenopathy or mass. In the abdomen and pelvis, normal hepatic, splenic, gastrointestinal, and genitourinary FDG accumulation is seen. No abnormal hypermetabolic uptake is appreciated in the abdomen or pelvis. No abnormal skeletal hypermetabolic uptake is seen. IMPRESSION: Persistent low level metabolic activity in the left hilus without an observable adenopathy or mass. Similar to prior studies. No other suspicious hypermetabolic uptake is appreciated. Electronically Signed by Bharat Valles MD 03/05/2020 11:11 A
== END ==
LOC: M PLARAD 07:38
PROVIDERS: ATTEND Internal Medicine Medical Oncology
DX: C50.111 Malignant neoplasm of central portion of right female breast (principal)
CPT/HCPCS: 78815; A9552

== ENCOUNTER → 2020-03-14 | Outpatient (CLI) | payer MEDICARE, OTHER | LOC: M LABSMTC 11:42 | PROVIDERS: ATTEND Family Medicine | DX: Z11.59 Encounter for screening for other viral diseases (principal) ==

== ENCOUNTER 2020-03-17 15:12 | Inpatient (IN) | payer MEDICARE, OTHER ==
[~2020-03-17] VITALS: Ht 162.6 cm; Wt 84.4 kg
[~2020-03-17 15:12] MED LIST changes: -METF-838 PO; -OXYB10TA23 PO
[2020-03-17] MEDS ORDERED: IBRA100C PO (15:27)
[2020-03-17] MEDS ORDERED: NS 500 ML IV ONE (16:00)
[2020-03-17] MEDS ORDERED: ACETAMINOPHEN 325 MG TAB PO ONE (16:00)
[2020-03-17] MEDS: ALBUTEROL 90 MCG/ACT 8GM HFA INHALER INH SCH ×2 (16:03→16:04)
[2020-03-17 16:40] LABS: HEMATOCRIT 33.1 % (36.0-47.0); HEMOGLOBIN 11.1 g/dl (12.0-15.5); MEAN CORPUSCULAR HEMOGLOBIN 34.8 pg (27.0-33.0); MEAN CORPUSCULAR HGB CONC 33.5 g/dl (32.0-36.5); MEAN CORPUSCULAR VOLUME 103.8 fl (80.0-96.0); PLATELET COUNT, AUTOMATED 195 10^3/uL (150-450); RED BLOOD COUNT 3.19 10^6/uL (4.00-5.40); WHITE BLOOD COUNT 4.4 10^3/uL (4.0-10.0)
[2020-03-17 17:05] LABS: EOSINOPHILS 2 % (0-3); LYMPHOCYTES 2 % (16-44); NEUTROPHILS 80 % (28-66)
[2020-03-17 17:06] LABS: PLATELET ESTIMATE NORMAL (NORMAL)
[2020-03-17 17:12] LABS: ALBUMIN 2.7 GM/DL (3.2-5.2); ALT/SGPT 90 U/L (12-78); BILIRUBIN,TOTAL 0.3 MG/DL (0.2-1.0); BLOOD UREA NITROGEN 13 MG/DL (7-18); CALCIUM LEVEL 8.3 MG/DL (8.8-10.2); CARBON DIOXIDE LEVEL 21 MEQ/L (21-32); CHLORIDE LEVEL 104 MEQ/L (98-107); CK-MB VALUE MASS < 1.0 NG/ML (<3.6); CPK CREATINE PHOSPHOKINASE 290 U/L (26-192); CREATININE FOR GFR 0.92 MG/DL (0.55-1.30); GLOMERULAR FILTRATION RATE > 60.0 (>39); GLUCOSE, FASTING 240 MG/DL (70-100); MB/CK RELATIVE INDEX 0.34 (< OR =4); POTASSIUM SERUM 3.9 MEQ/L (3.5-5.1); SODIUM LEVEL 136 MEQ/L (136-145); TOTAL PROTEIN 7.1 GM/DL (6.4-8.2); TROPONIN I < 0.02 NG/ML (< 0.10)
[2020-03-17] MEDS ORDERED: cefTRIAXone SOD 2 GM in D5W MINI-BAG PLUS 50 ML IV ONE (17:15)
[2020-03-17] MEDS ORDERED: DOXYCYCLINE HYCLATE 100 MG in D5W MINI-BAG PLUS 100 ML IV ONE (17:15)
[2020-03-17] MEDS ORDERED: NS 1,000 ML IV ONE (17:45)
[2020-03-17] MEDS ORDERED: METF-838 PO (18:17)
[2020-03-17] MEDS ORDERED: OXYB10TA23 PO (18:17)
[2020-03-17] MEDS: NS 1,000 ML IV SCH ×2 (18:57→20:06)
[2020-03-17] MEDS ORDERED: IBUPROFEN 600MG TAB PO ONE (19:00)
[2020-03-17] MEDS ORDERED: guaiFENesin DM LIQ 10ML UD PO ONE (19:00)
[2020-03-17 19:05] VITALS: BP 133/61
--- NOTE | 2020-03-17 19:24 | ECGEPIP ---
[facility] - ED Test Date: 2020-03-17 Pat Name: MAURICIO VASQUEZ Department: Room: - Gender: Female Community Assistant: CURTIS : 1950 Requested By: Miesha Campoverde Order Number: [id number] Reading MD: Miesha Campoverde Measurements Intervals [place] Rate: 125 P: 61 ME: 145 QRS: -6 QRSD: 119 T: 110 QT: 315 QTc: 455 Interpretive Statements SINUS TACHYCARDIA MODERATE INTRAVENTRICULAR CONDUCTION DELAY ST DEVIATION AND MODERATE T-WAVE ABNORMALITY, CONSIDER LATERAL ISCHEMIA CW 06/04/17 RATE INCREASED [facility]AR MORPHOLOGY Electronically Signed on 03-17-2020 19:24:00 EDT by Miesha Campoverde
[2020-03-17] MEDS ORDERED: AZITHROMYCIN INJ 500 MG, VIAL MATE ADAPTER 1 EACH in D5W 250 ML IV SCH (20:00)
[2020-03-17] MEDS: APIXABAN 5 MG TAB (ELIQUIS) PO SCH (20:06)
[2020-03-17] MEDS: PANTOPRAZOLE 40MG TAB (PROTONIX) PO SCH (20:06)
[2020-03-17] MEDS: ATORVASTATIN 20 MG TAB PO SCH (20:06)
--- NOTE | 2020-03-17 21:51 | HPE ---
DATE OF ADMISSION: 03/17/2020 CHIEF COMPLAINT: Cough, shortness of breath. HISTORY OF PRESENTING ILLNESS: 69-year-old female with history of oligometastatic indolent recurrent ER positive HER2/JOLANTA negative breast cancer, invasive ductal carcinoma, originally diagnosed with early stage disease in 1998 with recurrence in 2008, now with metastatic lesions to the right eye, lungs, and bones seen at the [facility], currently undergoing chemotherapy, started exemestane 25 daily and everolimus and denosumab every 3 months. Patient was feeling sick with headache, cough, fevers, and stomachache since her medications have been changed and had taken Tylenol 1 gram twice a day for a fever, 101 temperature at home, cough which is nonproductive, and feeling tired and fatigued. Patient has had a decrease in appetite with a five pound weight loss this past week, two episodes of vomiting last night, unable to keep any food down, but no diarrhea. She has had loose stools for the past 2 days. She has been unable to sleep due to coughing every 15 minutes without improvement with cough syrup [id number] and cough drops. Patient used Vicks NyQuil which helped a little. She feels a horrible sore throat that feels like it is raw on top of her mouth. Patient presented to the emergency room, found to have a fever of 102, bandemia. Chest x-ray showing a left lower lobe pneumonia. COVID is negative. Hospitalist service was asked to admit for sepsis secondary to left lower lobe pneumonia in the setting of chronically immunosuppressed patient with metastatic recurrent breast cancer on chemotherapy. PAST MEDICAL HISTORY: Breast cancer initially diagnosed in 1998, recurred in 2008, now with metastatic lesions to the bones, right eye, and the lungs, chronic left bundle branch block, Sheikh's esophagus diagnosed in 2007, recent EGD at the [facility] in [place] November 2019 with followup in 3 years, transient ischemic attack (TIA), overactive bladder, left bundle branch block, thrush, urinary tract infection (UTI) with Klebsiella and group B Streptococcus, left ventricular diastolic dysfunction, congestive heart failure (CHF) with preserved systolic function, ejection fraction is 65%, pulmonary embolism on chronic Eliquis. PAST SURGICAL HISTORY: Right lumpectomy 1998, section. ALLERGIES: To GABAPENTIN and MEPERIDINE. HOME MEDICATIONS: - calcium and vitamin D 200-250 one tablet twice a day - dexamethasone 10 mL by mouth four times a day for mucositis for 4 days - glipizide 10 twice a day - lidocaine patch topically daily - Eliquis 5 mg twice a day - Lipitor 20 nightly - loratadine 10 daily - metformin 1 gram twice a day - multivitamin one tablet daily - oxybutynin 10 mg daily - Protonix 40 twice a day - Effexor XR 37.5 daily SOCIAL HISTORY: Patient quit smoking in 1983, previously smoked two packs a day from age 17 to age 33. Still drinks beer, a couple of beers on the weekends. Retired, worked for [employer] in [place]. No recreational drug use. Patient's is Shashi, healthcare proxy, . She is DO NOT RESUSCITATE/DO NOT INTUBATE. Medical Orders for Life-Sustaining Treatment (MOLST) form has been signed. FAMILY HISTORY: Brother had a myocardial infarction (MO) and coronary artery disease (CAD) in his 50s. Mother had CAD/MO in her 70s, at the age 73. Father about 6 years ago with cancer, unknown type, but he was a smoker. REVIEW OF SYSTEMS: Per history of presenting illness (HPI), 12-point system otherwise negative. PHYSICAL EXAMINATION: Temperature 102.1, current temperature 98.3, pulse 117, respiratory rate 20, blood pressure 133/61, 94% on two liters nasal cannula. Generally: Patient is awake, alert, oriented times three, able to provide a history. No conversational dyspnea. No cyanosis, icterus, or jaundice. Patient has no oral thrush. Dry mucous membranes. No jugular venous distention (JVD), thyromegaly, or cervical lymphadenopathy. Lungs: Diminished breath sounds and crackles at the left base. Heart: S1, S2, sinus tachycardia. Abdomen: Soft, nontender, nondistended, positive bowel sounds times four quadrants. Extremities: No pitting edema, cyanosis, or clubbing. EKG sinus rhythm, ventricular rate of 125, intraventricular conduction delay, ST-T changes, nonspecific. LABORATORY DATA: White count 4.4, hemoglobin 11, hematocrit 33, platelet count 195, bandemia of 16. Sodium 136, potassium 3.9, chloride 104, bicarbonate 21, BUN 13, creatinine 0.92, glucose 240, lactic acid 4.4, calcium 8.3, AST 78, ALT 90, alkaline phosphatase 149, total CK 290, troponin less than 0.02, albumin of 2.7. Urinalysis no sample obtained so far. IMAGING STUDIES: 03/05/2020 PET scan, persistent low level metabolic activity in the left hilus without an observable adenopathy or mass. No other suspicious hypermetabolic uptake is appreciated. ASSESSMENT AND PLAN: This is a 69-year-old female with recurrent breast cancer initially diagnosed in 1998 now with metastatic lesions to the bone, right eye, and the lungs, transient ischemic attack (TIA), overactive bladder, Sheikh's esophagus 2007, diastolic heart failure, ejection fraction (EF) of 65%, urinary tract infection (UTI) with Klebsiella, group B Streptococcus, thrush, right lumpectomy, section, pulmonary embolism (PE) on chronic anticoagulation, presents with several day history of fever, chills, cough, shortness of breath, found to have a left lower lobe pneumonia. IMPRESSION: 1. Sepsis secondary to left lower lobe pneumonia in a chronically immunocompromised patient with recurrent and metastatic breast cancer on chronic immunosuppressive therapy. Patient is febrile, temperature of 102. She has been given IV ceftriaxone and azithromycin. Will check an methicillin-resistant Staphylococcus aureus (MRSA) screen. COVID-19 was negative. Patient remains tachycardiac and will receive IV fluids until lactic acid has normalized. Obtain sputum culture if possible. Robitussin as needed for cough symptoms for symptomatic relief. Obtain urine Legionella and Streptococcus pneumoniae antigen. Check a urinalysis due to history of urinary tract infection (UTI), although denies dysuria, urgency, or frequency. Nebulizer treatments if needed and supplemental oxygen to keep oxygen saturation greater than 90%. 2. Metastatic breast cancer with recurrence. Initially diagnosed in 1998, recurred in 2008 with bone, right eye, and lung metastases. Currently managed by Dr. Megan David at the [facility] on chemotherapy. Will continue to monitor the patient and treat for acute infection. Outpatient followup. 3. History of pulmonary embolism on chronic Eliquis. 4. History of transient ischemic attack (TIA) on chronic Eliquis. No neurological complaints at this time. 5. History of Sheikh's esophagus. Monitor for any gastrointestinal (GI) bleeding. Last EGD, per the patient, was "okay." Repeat EGD in 3 years per gastrointestinal (GI) recommendations at the [facility] in [place]. Continue on Protonix 40 twice a day. 6. Type 2 diabetes. On consistent carbohydrate diet, sliding scale. Continue on home medications. 7. Allergic rhinitis on chronic loratadine. 8. Overactive bladder on Ditropan. 9. Dyslipidemia on chronic Lipitor. CODE STATUS: DO NOT RESUSCITATE/DO NOT INTUBATE.
[2020-03-17 22:00] VITALS: BP 124/57
[2020-03-17] MEDS ORDERED: guaiFENesin DM LIQ 10ML UD PO PRN (23:00)
--- NOTE | 2020-03-18 03:53 | REP ---
AP PORTABLE CHEST: 03/17/2020. CLINICAL HISTORY: Fever and cough. COMPARISON: CT chest 09/14/2019, PA and lateral 02/03/2019. FINDINGS: AP portable semi-erect chest shows patchy consolidation in the retrocardiac left lower lobe and just lateral to it. In fever and cough, suspect pneumonia. I do not see effusion. The left lung showed minor basilar fibrotic change but was without infiltrate. Heart is not enlarged. The aorta has calcifications at the arch but without aneurysm. Airway midline. There are degenerative changes in the spine and shoulders. IMPRESSION: 1. Left lower lobe pneumonia without gross effusion. Electronically Signed by Tj Norwood MD 03/18/2020 08:52 A
[2020-03-18 06:00] VITALS: BP 137/68
[2020-03-18 07:11] LABS: HEMATOCRIT 29.7 % (36.0-47.0); HEMOGLOBIN 10.2 g/dl (12.0-15.5); MEAN CORPUSCULAR HEMOGLOBIN 35.2 pg (27.0-33.0); MEAN CORPUSCULAR HGB CONC 34.3 g/dl (32.0-36.5); MEAN CORPUSCULAR VOLUME 102.4 fl (80.0-96.0); PLATELET COUNT, AUTOMATED 161 10^3/uL (150-450); WHITE BLOOD COUNT 7.1 10^3/uL (4.0-10.0)
[2020-03-18 07:46] LABS: BLOOD UREA NITROGEN 12 MG/DL (7-18); CALCIUM LEVEL 7.3 MG/DL (8.8-10.2); CARBON DIOXIDE LEVEL 21 MEQ/L (21-32); CHLORIDE LEVEL 108 MEQ/L (98-107); CREATININE FOR GFR 0.75 MG/DL (0.55-1.30); GLOMERULAR FILTRATION RATE > 60.0 (>39); GLUCOSE, FASTING 177 MG/DL (70-100); POTASSIUM SERUM 3.5 MEQ/L (3.5-5.1); SODIUM LEVEL 140 MEQ/L (136-145)
[2020-03-18 07:50] LABS: EOSINOPHILS 6 % (0-3); LYMPHOCYTES 1 % (16-44); MONOCYTES 2 % (0-5); NEUTROPHILS 89 % (28-66); PLATELET ESTIMATE NORMAL (NORMAL)
[2020-03-18] MEDS: PANTOPRAZOLE 40MG TAB (PROTONIX) PO SCH (07:52)
[2020-03-18] MEDS: APIXABAN 5 MG TAB (ELIQUIS) PO SCH (07:52)
[2020-03-18] MEDS: LORATADINE 10 MG TAB PO SCH (07:52)
[2020-03-18] MEDS: VENLAFAXINE **XR** 37.5 MG CAPSULE PO SCH (07:53)
[2020-03-18] MEDS: oxyBUTYnin *DITROPAN XL* 5 MG TABCR PO SCH (07:53)
[2020-03-18] MEDS: MULTIVITAMINS/MINERALS THERAP 1 TAB PO SCH (07:53)
[2020-03-18] MEDS ORDERED: metFORMIN XR 500MG TAB *GLUCOPHAGE XR PO SCH ×2 (08:00→18:00)
[2020-03-18] MEDS ORDERED: ENOXAPARIN 40MG/0.4ML SYRINGE (J1650 PER 10MG) SC SCH (09:00)
[2020-03-18] MEDS: PIPERACILLIN/TAZOBACTAM SOD 4.5 GM in D5W MINI-BAG PLUS 50 ML IV SCH ×3 (11:42→22:23)
[2020-03-18 11:50] LABS: ALBUMIN 1.7 GM/DL (3.2-5.2); BILIRUBIN,DIRECT 0.1 MG/DL (0.0-0.2); BILIRUBIN,TOTAL 0.3 MG/DL (0.2-1.0); TOTAL PROTEIN 5.9 GM/DL (6.4-8.2)
[2020-03-18 14:00] VITALS: BP 133/68
[2020-03-18] MEDS ORDERED: ISOVUE-370 76% 100ML VIAL As Ordered ONE (16:01)
--- NOTE | 2020-03-18 19:05 | REPVR ---
PROCEDURE INFORMATION: Exam: MR Head Without Contrast Exam date and time: 03/18/2020 6:44 PM Age: 69 years old Clinical indication: Dizziness; Additional info: Eval for mets TECHNIQUE: Imaging protocol: MR of the head without contrast. 3D rendering: MIP and/or 3D reconstructed images were created by the technologist. COMPARISON: MRI-Brain W/O FOLL BY WITH 06/05/2017 12:28 AM FINDINGS: Brain: Scattered foci of T2 lengthening demonstrated in the subcortical and centrum semiovale white matter consistent with minimal age related white matter changes. Mild parenchymal volume loss. Ventricles: Normal. No ventriculomegaly. Bones/joints: Unremarkable. Sinuses: Inflammatory changes in both maxillary sinuses including a 2.1 cm retention cyst in the right maxillary sinus. Mastoid air cells: Normal as visualized. No mastoid effusion. Orbits: Unremarkable. Soft tissues: Unremarkable. IMPRESSION: 1. Scattered foci of T2 lengthening demonstrated in the subcortical and centrum semiovale white matter consistent with minimal age related white matter changes. 2. Mild parenchymal volume loss. 3. No evidence of intracranial metastatic disease. If there is a strong index of suspicion for metastatic disease, follow-up could be obtained with postcontrast imaging. Electronically signed by: Shashi Gutierrez On 03/18/2020 19:05:02 PM
[2020-03-18 21:00] VITALS: BP 109/55
[2020-03-18 21:22] VITALS: BP 128/65
--- NOTE | 2020-03-18 21:29 | IPNPDOC ---
Text Note Date of Service The patient was seen on 03/18/20. NOTE Subjective: Patient seen on bedside on 03/18/2020. He reports having cough which is nonproductive, feeling weak and fatigued. She reports having mild intermittent RLQ abdominal pain, no radiation, 2 out of 10 on pain scale. Reports having no appetite. She denies vomiting, fever, chills, diarrhea. Objective: General: Patient is awake, alert, oriented times three, no apparent distress. Eyes: Conjunctiva clear, pupils equal round and reactive to light and accommodation. EOM full, Fundus: not visualized. ENT: Hearing Bilateral normal. No nasal deviation, dry mucous membrane, oral trash noted.. Neck: supple, no masses, trachea midline, no thyroid nodules, masses, tenderness or enlargement. Cardiovascular: S1, S2, normal rhythm, no murmur, rub, or gallop. Respiratory: Diminished breath sounds and crackles at the left lung base. No rhonchi, wheezes or rubs. Abdomen: Soft, bowel sounds positive, no bruits. Extremities: No clubbing or cyanosis. No edema, no tenderness. Spine: No kyphosis, no para-spinal tenderness, no costovertebral tenderness. Central nervous system (SENIOR COMPENSATION ANALYST): Awake, alert and fully oriented. Skin: No rashes, lesions, ulcerations, subcutaneous nodules or induration. Assessment: A 69-year-old female patient with breast cancer, stage IIA, T2 N0 M0 moderately differentiated infiltrating ductal carcinoma of right breast diagnosed in 1998, metastatic to lung, right eye, bone, pancreas and TIA, diastolic heart failure with preserved ejection fraction of 65%, Barrets esophagus, pulmonary embolism on chronic anticoagulation, presented to the ED with several days of fever, chills, cough, shortness of breath and vomiting. Plan: 1. Sepsis Secondary to pneumonia: - Immunocompromised patient on treatment for recurrent metastatic breast cancer. - She did get a dose of Rocephin and doxycycline and ED, a dose of azithromycin. - She is started on Zosyn. WBC: 7.1 [On immunosuppressive therapy] - On admission, lactic acid 4.2 trends down to 1.7 - Mycoplasma pneumoniae IgG antibody: 267 [elevated] - Mycoplasma pneumoniae IgM antibody: Negative - Legionella, strep pneumo: Pending. - Will order pro-calcitonin levels for bacterial infection. - Will get a CT abdomen with contrast to r/o acute changes vs hematoma. - US gall bladder for further eval 2. Recurrent breast cancer with metastases: - Initially diagnosis was in 1998, metastasis to bone, lung and right eye in 2008. - She follows up with oncology, Dr. Megan David and is on chemotherapy (exemestane/everolimus) as per oncology. Was supposed to stop [palbociclib/letrozole] and switch to above treatment. MRI of abdomen done on 01/09/2020 showed an abnormal pancreatic duct and a 2 cm mass on the head of the pancreas. FNA biopsy was done at [facility] [place] in [place] and confirmed malignant cells consistent with metastatic breast adenocarcinoma. - CT A/P for interim eval - MRI brain to eval for brain mets 3. Pulmonary embolism: On chronic Eliquis. 4. Barretts esophagus: - Her last EGD per patient was okay. Repeat EGD in 3 years as per GI recommendations, at [facility] in [place]. - Continue Protonix 40 MG twice a day 5. Type 2 diabetes mellitus: - ISS On carbohydrate consistent diet. 6. Allergic rhinitis: - will continue Claritin, robitussin. 7. Hyperlipidemia: - On Lipitor at home, will continue. 8. Overactive bladder: - will continue on oxybutynin. VS,Fishbone, I+O VS, Fishbone, I+O Laboratory Tests 03/18/20 06:54 Vital Signs Date Time Temp Pulse Resp B/P (MAP) Pulse Ox O2 Delivery O2 Flow Rate FiO2 03/18/20 21:22 102.4 128/65 (86) 03/18/20 21:00 111 18 96 Room Air I&O- Last 24 Hours up to 6 AM 03/18/20 06:00 Intake Total 2800 ml Output Total 425 ml Balance 2375 ml CYN HAMMOND MD Mar 18, 2020 21:29
[2020-03-18] MEDS ORDERED: DEXTROSE 50% 50 ML SYRINGE IV PRN (21:30)
[2020-03-18] MEDS ORDERED: GLUCOSE 4GM CHEW TABLET PO PRN (21:30)
[2020-03-18] MEDS ORDERED: GLUCAGON INJ 1MG VIAL SC PRN (21:30)
[2020-03-18] MEDS ORDERED: IBUPROFEN 200MG TAB PO PRN (21:45)
[2020-03-18] MEDS ORDERED: NS 500 ML IV SCH (21:45)
[2020-03-18] MEDS: HumaLOG INSULIN (NovoLOG) PER UNIT SC SCH (22:04)
--- NOTE | 2020-03-19 01:40 | REPVR ---
PROCEDURE INFORMATION: Exam: US Abdomen, Limited; Right Upper Quadrant Exam date and time: 03/19/2020 1:11 AM Age: 69 years old Clinical indication: Abdominal pain; Acute; Additional info: Abd pain TECHNIQUE: Imaging protocol: US abdomen. Real time ultrasound with image documentation. Limited exam focused on the right upper quadrant. Other technique: < or StartDictation> There is irregular echo pattern throughout the liver. There is severe intrahepatic biliary dilatation. Hydrops of the gallbladder is noted and measuring the 10 cm in length by 5.4 cm in AP dimension. Gallbladder wall is not thickened a. The common bile duct is grossly distended at 1.3 cm and comes to an abrupt termination at the head of the pancreas. This would be suspicious for a mass at the head of the pancreas causing obstruction the CT scan demonstrated distension of the pancreatic duct and suspect mass-effect of the pancreas measuring approximately 3 cm. The right kidney measures 10.4 cm in length by 4.9 cm in thickness. There is no evidence of hydronephrosis. COMPARISON: CT ABD/PEL W/IV CONTRAST ONLY 03/18/2020 3:58 PM FINDINGS: Liver: Severe irregular echo pattern. Gallbladder:There is no gallbladder wall thickening. Common bile duct: Massive distension of the common bile duct to 1.3 cm and ending abruptly at the head of the pancreas. This is probably secondary to a 3 cm mass at the head of the pancreas Right kidney: No evidence of hydronephrosis right kidney. Right kidney measures 10.4 cm in length by 4.9 cm in thickness. IMPRESSION: 1. Severe hydrops of the gallbladder. 2. Severe dilatation of the common bile duct measuring 1.3 cm and ending abruptly at the head of the pancreas probably secondary to a 3 cm mass at the head of the pancreas. Electronically signed by: Juan Phillips On 03/19/2020 01:40:21 AM
[2020-03-19] MEDS: ATORVASTATIN 20 MG TAB PO SCH ×2 (02:12→21:16)
[2020-03-19] MEDS: APIXABAN 5 MG TAB (ELIQUIS) PO SCH ×3 (02:12→21:16)
[2020-03-19] MEDS: PANTOPRAZOLE 40MG TAB (PROTONIX) PO SCH ×3 (02:12→21:16)
--- NOTE | 2020-03-19 04:23 | REP ---
REASON: Abdominal pain. Latest prior for comparison 09/14/2019. CONTRAST: 100 mL Isovue-370. Since the last exam, extensive consolidation has developed in the left lower lung field. The gallbladder is hydropic. Intrahepatic ductal dilatation has developed since the last exam. There are no enhancing hepatic lesions. Mild intrapancreatic ductal dilatation has developed since the last exam. The spleen, adrenal glands, and kidneys are essentially unchanged. Mild perinephric stranding has developed since the last exam. The abdominal aorta and para-aortic regions are again seen to be within normal limits, unchanged. Gas- and fluid-filled small bowel loops are seen in the abdomen and pelvis. There is a small amount of free fluid in the pelvis, and there is a small amount of free fluid in Morison pouch. There is no evidence of free intraperitoneal air. Bone window technique throughout the examination shows no change in the osseous structures. Note is again made of calcifications in the gluteal soft tissues, consistent with old injection granulomata. IMPRESSION: 1. Gallbladder hydrops and intrapancreatic ductal dilatation has developed since the last exam, etiology uncertain. Intrapancreatic ductal dilatation has developed since the last exam. I cannot rule out the possibility of a new pancreatic neoplasm, particularly affecting the pancreatic uncinate process where there is slight irregularity of the medial wall of the pancreas involving that portion. This, along with a possible Klatskin tumor, cannot be ruled out. Pancreatic MRI with MRA as individual separate dedicated studies recommended before and after intravenous gadolinium where appropriate. 2. There is a small bowel ileus. 3. Free fluid, as described above. 4. Extensive consolidation of the left lung lower lobe, which has developed since the last exam. Pneumonia/extensive atelectasis/combination of both. Followup is recommended. Electronically Signed by Yan Oakley DO 03/19/2020 11:36 A
[2020-03-19 05:30] VITALS: BP 109/63
[2020-03-19 06:00] VITALS: BP 109/63
[2020-03-19 06:27] LABS: HEMATOCRIT 25.4 % (36.0-47.0); HEMOGLOBIN 8.7 g/dl (12.0-15.5); MEAN CORPUSCULAR HEMOGLOBIN 34.8 pg (27.0-33.0); MEAN CORPUSCULAR HGB CONC 34.3 g/dl (32.0-36.5); MEAN CORPUSCULAR VOLUME 101.6 fl (80.0-96.0); PLATELET COUNT, AUTOMATED 140 10^3/uL (150-450); WHITE BLOOD COUNT 5.9 10^3/uL (4.0-10.0)
[2020-03-19] MEDS: ACETAMINOPHEN 650MG ER TAB (TYLENOL ARTHRITIS) PO PRN ×2 (06:27→21:21)
[2020-03-19] MEDS: PIPERACILLIN/TAZOBACTAM SOD 4.5 GM in D5W MINI-BAG PLUS 50 ML IV SCH ×4 (06:27→22:56)
[2020-03-19 06:47] LABS: BLOOD UREA NITROGEN 10 MG/DL (7-18); CALCIUM LEVEL 6.8 MG/DL (8.8-10.2); CARBON DIOXIDE LEVEL 22 MEQ/L (21-32); CHLORIDE LEVEL 108 MEQ/L (98-107); GLOMERULAR FILTRATION RATE > 60.0 (>39); GLUCOSE, FASTING 154 MG/DL (70-100); POTASSIUM SERUM 2.9 MEQ/L (3.5-5.1); SODIUM LEVEL 140 MEQ/L (136-145)
[2020-03-19 07:03] LABS: EOSINOPHILS 1 % (0-3); LYMPHOCYTES 5 % (16-44); MONOCYTES 10 % (0-5); NEUTROPHILS 84 % (28-66)
[2020-03-19 07:04] LABS: PLATELET ESTIMATE NORMAL (NORMAL)
[2020-03-19] MEDS ORDERED: VANCOMYCIN HCL 1,000 MG in IV FLUID PLACE HOLDER 1 EA IV SCH (08:30)
[2020-03-19 08:32] LABS: MAGNESIUM LEVEL 1.4 MG/DL (1.8-2.4)
[2020-03-19] MEDS: KCL 10MEQ/100ML SWI (KRUN) 10 MEQ in IV 1 EA IV SCH ×2 (08:50→09:15)
[2020-03-19] MEDS: HumaLOG INSULIN (NovoLOG) PER UNIT SC SCH ×4 (08:50→21:00)
[2020-03-19] MEDS: oxyBUTYnin *DITROPAN XL* 5 MG TABCR PO SCH (08:51)
[2020-03-19] MEDS: LORATADINE 10 MG TAB PO SCH (08:51)
[2020-03-19] MEDS: MULTIVITAMINS/MINERALS THERAP 1 TAB PO SCH (08:51)
[2020-03-19] MEDS: POTASSIUM CHLORIDE 10 MEQ SR TABLET PO SCH ×2 (08:51→11:52)
[2020-03-19] MEDS: VENLAFAXINE **XR** 37.5 MG CAPSULE PO SCH (08:51)
[2020-03-19] MEDS: VANCOMYCIN HCL 1,000 MG, VIAL MATE ADAPTER 1 EACH in D5W 250 ML IV SCH ×2 (09:30→21:18)
[2020-03-19] MEDS ORDERED: VANCOMYCIN HCL 750 MG, VIAL MATE ADAPTER 1 EACH in D5W 250 ML IV ONE (10:00)
[2020-03-19] MEDS: MAG SULF 1GM/100ML (MAG RUN) 1 GM in IV 1 EA IV SCH ×2 (11:51→13:55)
[2020-03-19] MEDS: guaiFENesin ER 600 MG TAB PO SCH ×2 (11:52→21:16)
[2020-03-19 14:00] VITALS: BP 103/61
--- NOTE | 2020-03-19 18:57 | IPNPDOC ---
Date Seen The patient was seen on 03/19/20. Progress Note Subjective: Patient seen on bedside on 03/19/2020. She reports feeling better and less fatigued than yesterday. She denies having any pain in her abdomen. She reports her appetite has gotten better and she feels hungry. Tmax 101.5 this morning, K 2.9 Objective: General: Patient is awake, alert, oriented times three, no apparent distress. Eyes: Conjunctiva clear, pupils equal round and reactive to light and accommodation. EOM full, Fundus: not visualized. ENT: Hearing Bilateral normal. No nasal deviation, dry mucous membrane, oral trash noted. Neck: supple, no masses, trachea midline, no thyroid nodules, masses, tenderness or enlargement. Cardiovascular: S1, S2, normal rhythm, no murmur, rub, or gallop. Respiratory: Diminished breath sounds and crackles at the left lung base. No r honchi, wheezes or rubs. Abdomen: Soft, bowel sounds positive, no bruits. Extremities: No clubbing or cyanosis. No edema, no tenderness. Spine: No kyphosis, no para-spinal tenderness, no costovertebral tenderness. Central nervous system (HIGHWAY MAINTAINER): Awake, alert and fully oriented. Skin: No rashes, lesions, ulcerations, subcutaneous nodules or induration. Assessment: A 69-year-old female patient with breast cancer diagnosed in 1998, metastatic to lung, right eye, bone, pancreas, TIA, diastolic heart failure with preserved ejection fraction of 65%, barretts esophagus, pulmonary embolism on chronic anticoagulation, presented to the ED with several days of fever, chills, cough, shortness of breath and vomiting. Plan: Sepsis Secondary to pneumonia: -Immunocompromised patient on treatment for recurrent metastatic breast cancer. - She did get a dose of Rocephin and doxycycline and ED, a dose of azithromycin. - She is on day 2 of Zosyn. WBC 5.9 [was on immunosuppressive therapy prior to admission] - Her MRSA screen positive, so started her on vancomycin (Day 1) - Still waiting on her serology for legionella, S.pneumonia. - Sputum culture and gram stain was ordered on admission, but as patient was not bring up anything gave her mucinex to help with that. Hypokalemia: - Her potassium was low (2.9) today and gave her KCL. - Her Magnesium is also low (1.4) and gave her MgSo4. Recurrent breast cancer with metastases: - Initial diagnosis was in 1998, metastasis to bone, lung and right eye and 2008. - She was seeing Dr. Alva for her cancer. - Spoke to oncology and her date for follow up was moved forward to 9AM , will be seeing Dr. Vargas. - Spoke to and updated him regarding her imaging. Pulmonary embolism: - On chronic Eliquis. Barretts esophagus: - Her last EGD per patient was okay. - Repeat EGD in 3 years as per GI recommendations, at [facility] in [place]. - Continue Protonix 40 MG twice a day Type 2 diabetes mellitus: - On sliding scale, continue home medications. - On 2 gm sodium diet. Allergic rhinitis: - On chronic loratadine. VS, I&O, 24H, Fishbone Vital Signs/I&O Vital Signs Date Time Temp Pulse Resp B/P (MAP) Pulse Ox O2 Delivery O2 Flow Rate FiO2 03/19/20 14:00 97.9 87 103/61 (75) 17 03/19/20 05:30 96 03/18/20 21:00 Room Air I&O- Last 24 Hours up to 6 AM 03/19/20 05:59 Intake Total 1225 ml Output Total 800 ml Balance 425 ml Laboratory Data 24H LABS Laboratory Tests 2 03/18/20 21:36: Bedside Glucose (Misc Panel) 173H 03/19/20 02:01: Methicillin-Resist S.aureus DNA PCR DETECTEDA 03/19/20 06:06: Neutrophils (%) (Auto) , Nucleated Red Blood Cells % (auto) 0.0, Neutrophils 84H, Lymphocytes (Manual) 5L, Monocytes (Manual) 10H, Eosinophils (Manual) 1, Red Blood Cell Morphology NORMAL, Platelet Estimate NORMAL, Anion Gap 10, Glomerular Filtration Rate > 60.0, Calcium Level 6.8L, Magnesium Level 1.4L 03/19/20 11:42: Bedside Glucose (Misc Panel) 186H 03/19/20 17:25: Bedside Glucose (Misc Panel) 178H CBC/BMP Laboratory Tests 03/19/20 06:06 Microbiology Microbiology 03/17/20 Urine Culture - Final, Complete 03/17/20 Respiratory Virus Panel (PCR) (JULIO) - Final, Complete 03/17/20 Blood Culture - Preliminary, Resulted No Growth after 48 hours. All Specime... 03/17/20 Blood Culture - Preliminary, Resulted No Growth after 48 hours. All Specime... ALIZA BRADSHAW MD Mar 19, 2020 18:57
[2020-03-19 20:00] VITALS: BP 131/69
[2020-03-20] MEDS: PIPERACILLIN/TAZOBACTAM SOD 4.5 GM in D5W MINI-BAG PLUS 50 ML IV SCH ×4 (05:54→23:46)
[2020-03-20 06:00] VITALS: BP 132/68
[2020-03-20 06:56] LABS: BASO % 0.5 % (0.0-1.0); EOS # 0.2 10^3/uL (0.0-0.5); EOS % 5.6 % (0.0-3.0); HEMATOCRIT 25.3 % (36.0-47.0); HEMOGLOBIN 8.6 g/dl (12.0-15.5); LYMPH # 0.3 10^3/uL (1.5-5.0); LYMPH % 6.5 % (24.0-44.0); MEAN CORPUSCULAR HEMOGLOBIN 35.1 pg (27.0-33.0); MEAN CORPUSCULAR VOLUME 103.3 fl (80.0-96.0); MONO # 0.3 10^3/uL (0.0-0.8); MONO % 7.2 % (0.0-5.0); NEUTROPHILS # 3.4 10^3/uL (1.5-8.5); NEUTROPHILS % 78.8 % (36.0-66.0); PLATELET COUNT, AUTOMATED 150 10^3/uL (150-450); RED BLOOD COUNT 2.45 10^6/uL (4.00-5.40); WHITE BLOOD COUNT 4.3 10^3/uL (4.0-10.0)
[2020-03-20 07:20] LABS: BLOOD UREA NITROGEN 8 MG/DL (7-18); CALCIUM LEVEL 7.3 MG/DL (8.8-10.2); CARBON DIOXIDE LEVEL 22 MEQ/L (21-32); CHLORIDE LEVEL 112 MEQ/L (98-107); GLOMERULAR FILTRATION RATE > 60.0 (>39); GLUCOSE, FASTING 158 MG/DL (70-100); POTASSIUM SERUM 3.7 MEQ/L (3.5-5.1); SODIUM LEVEL 142 MEQ/L (136-145)
[2020-03-20 08:06] LABS: MAGNESIUM LEVEL 2.2 MG/DL (1.8-2.4)
[2020-03-20] MEDS: VANCOMYCIN HCL 1,000 MG, VIAL MATE ADAPTER 1 EACH in D5W 250 ML IV SCH ×2 (09:56→21:39)
[2020-03-20] MEDS: LORATADINE 10 MG TAB PO SCH (09:57)
[2020-03-20] MEDS: MULTIVITAMINS/MINERALS THERAP 1 TAB PO SCH (09:57)
[2020-03-20] MEDS: HumaLOG INSULIN (NovoLOG) PER UNIT SC SCH ×4 (09:57→21:39)
[2020-03-20] MEDS: guaiFENesin ER 600 MG TAB PO SCH ×2 (09:57→21:38)
[2020-03-20] MEDS: PANTOPRAZOLE 40MG TAB (PROTONIX) PO SCH ×2 (09:57→21:38)
[2020-03-20] MEDS: APIXABAN 5 MG TAB (ELIQUIS) PO SCH ×2 (09:57→21:38)
[2020-03-20] MEDS: VENLAFAXINE **XR** 37.5 MG CAPSULE PO SCH (09:57)
[2020-03-20] MEDS: oxyBUTYnin *DITROPAN XL* 5 MG TABCR PO SCH (09:58)
[2020-03-20] MEDS: FLUCONAZOLE 100 MG TAB PO SCH (12:28)
[2020-03-20 14:00] VITALS: BP 127/72
[2020-03-20] MEDS: ACETAMINOPHEN 650MG ER TAB (TYLENOL ARTHRITIS) PO PRN (16:38)
[2020-03-20 17:32] LABS: BODY FLUID CULTURE Not indicated. (.); LEGIONELLA ANTIGEN URINE Negative (Negative); ORGANISM ID Not indicated. (.); SPECIMEN SOURCE Urine (.); URINE STREP PNEUMONIAE ANTIGEN Negative (Negative)
[2020-03-20] MEDS: ATORVASTATIN 20 MG TAB PO SCH (21:38)
[2020-03-20 22:00] VITALS: BP 104/55
[2020-03-21 02:00] VITALS: BP 130/61
[2020-03-21] MEDS: PIPERACILLIN/TAZOBACTAM SOD 4.5 GM in D5W MINI-BAG PLUS 50 ML IV SCH ×3 (04:15→17:23)
[2020-03-21 06:00] VITALS: BP 120/60
[2020-03-21 08:55] LABS: BASO % 0.7 % (0.0-1.0); EOS # 0.4 10^3/uL (0.0-0.5); EOS % 6.1 % (0.0-3.0); HEMATOCRIT 23.7 % (36.0-47.0); HEMOGLOBIN 8.2 g/dl (12.0-15.5); LYMPH # 0.4 10^3/uL (1.5-5.0); LYMPH % 6.3 % (24.0-44.0); MEAN CORPUSCULAR HEMOGLOBIN 34.6 pg (27.0-33.0); MEAN CORPUSCULAR HGB CONC 34.6 g/dl (32.0-36.5); MONO # 0.8 10^3/uL (0.0-0.8); MONO % 13.2 % (0.0-5.0); NEUTROPHILS # 4.4 10^3/uL (1.5-8.5); NEUTROPHILS % 72.2 % (36.0-66.0); PLATELET COUNT, AUTOMATED 206 10^3/uL (150-450); RED BLOOD COUNT 2.37 10^6/uL (4.00-5.40); WHITE BLOOD COUNT 6.1 10^3/uL (4.0-10.0)
[2020-03-21 09:19] LABS: BLOOD UREA NITROGEN 6 MG/DL (7-18); CALCIUM LEVEL 7.2 MG/DL (8.8-10.2); CARBON DIOXIDE LEVEL 23 MEQ/L (21-32); CHLORIDE LEVEL 112 MEQ/L (98-107); CREATININE FOR GFR 0.65 MG/DL (0.55-1.30); GLOMERULAR FILTRATION RATE > 60.0 (>39); GLUCOSE, FASTING 180 MG/DL (70-100); POTASSIUM SERUM 3.7 MEQ/L (3.5-5.1); SODIUM LEVEL 142 MEQ/L (136-145); VANCOMYCIN LEVEL TROUGH 16.2 UG/ML (10.0-20.0)
[2020-03-21] MEDS: HumaLOG INSULIN (NovoLOG) PER UNIT SC SCH ×4 (09:31→21:00)
[2020-03-21] MEDS: VENLAFAXINE **XR** 37.5 MG CAPSULE PO SCH (09:31)
[2020-03-21] MEDS: oxyBUTYnin *DITROPAN XL* 5 MG TABCR PO SCH (09:32)
[2020-03-21] MEDS: APIXABAN 5 MG TAB (ELIQUIS) PO SCH ×2 (09:32→21:14)
[2020-03-21] MEDS: LORATADINE 10 MG TAB PO SCH (09:32)
[2020-03-21] MEDS: FLUCONAZOLE 100 MG TAB PO SCH (09:32)
[2020-03-21] MEDS: guaiFENesin ER 600 MG TAB PO SCH ×2 (09:32→21:14)
[2020-03-21] MEDS: PANTOPRAZOLE 40MG TAB (PROTONIX) PO SCH ×2 (09:32→21:14)
[2020-03-21] MEDS: VANCOMYCIN HCL 1,000 MG, VIAL MATE ADAPTER 1 EACH in D5W 250 ML IV SCH ×2 (09:32→21:15)
[2020-03-21] MEDS: MULTIVITAMINS/MINERALS THERAP 1 TAB PO SCH (09:32)
--- NOTE | 2020-03-21 13:55 | IPNPDOC ---
Date Seen The patient was seen on 03/20/20. Progress Note Note written by Ole Huizar MD and reviewed. I have personally evaluated and examined the patient. Discussed with resident regarding plan of care and agree with the above assessment and plan. Subjective: Patient seen bedside on 03/20/2020. . She reports feeling good, denies having any pain in her abdomen. She says her appetite is back to normal and is eating. She reports having sore throat and on exam she has some thrush in her mouth. We will start her on fluconazole. Objective: General: Patient is awake, alert, oriented times three, no apparent distress. Eyes: Conjunctiva clear, pupils equal round and reactive to light and accommodation. EOM full, Fundus: not visualized. ENT: Hearing Bilateral normal. No nasal deviation, dry mucous membrane, oral tra sh noted. Neck: supple, no masses, trachea midline, no thyroid nodules, masses, tenderness or enlargement. Cardiovascular: S1, S2, normal rhythm, no murmur, rub, or gallop. Respiratory: Diminished breath sounds and crackles at the left lung base. No rhonchi, wheezes or rubs. Abdomen: Soft, bowel sounds positive, no bruits. Extremities: No clubbing or cyanosis. No edema, no tenderness. Spine: No kyphosis, no para-spinal tenderness, no costovertebral tenderness. Central nervous system (EXPANSION JOINT BUILDER): Awake, alert and fully oriented. Skin: No rashes, lesions, ulcerations, subcutaneous nodules or induration. Assessment: A 69-year-old female patient with breast cancer diagnosed in 1998, metastatic to lung, right eye, bone, pancreas, TIA, diastolic heart failure with preserved ejection fraction of 65%, barretts esophagus, pulmonary embolism on chronic anticoagulation, presented to the ED with several days of fever, chills, cough, shortness of breath and vomiting. Plan: 1. Sepsis Secondary to pneumonia: - Immunocompromised patient on treatment for recurrent metastatic breast cancer. - She did get a dose of Rocephin and doxycycline in ED and a dose of azithromycin. - She is on day 3 of Zosyn. WBC 4.3 [was on immunosuppressive therapy prior to admission] - Her MRSA screen positive, so started her on vancomycin (Day 2). Will consult ID Dr. Marie tomorrow regarding further management. - Serology for legionella, S.pneumonia negative. - Her urine cultures and 2 blood cultures (03/17/2020) were negative. -Sputum culture and Gram stain are pending. 2. Oral Thrush: - Started on fluconazole 200mg. 3. Recurrent breast cancer with metastases: - Initial diagnosis was in 1998, metastasis to bone, lung and right eye and 2008. - She was seeing Dr. Alva for her cancer. - MRI brain without contrast [03/18/2020]: No evidence of intracranial metastatic disease, age-related white matter changes, mild parenchymal volume loss. -CT abdomen/pelvis with IV contrast [03/18/2020]: Gallbladder hydrops and intra- pancreatic ductal dilatation since the last exam, cannot rule out the possibility of new pancreatic neoplasms. This along with possible Klatskin tumor, cannot be ruled out. There is small bowel ileus. Extensive consolidation of left lower lung lobe, which has developed since the last exam. - Spoke to oncology and her date for follow up was moved forward to 24th 9 AM, will be seeing Dr. Vargas. - Spoke to , updated him regarding her imaging and prepone of follow-up appointment. 4. Pulmonary embolism: - On chronic Eliquis 5mg. 5. Barretts esophagus: - Her last EGD per patient was okay. - Repeat EGD in 3 years as per GI recommendations, at [facility] in [place]. - Continue Protonix 40 MG twice a day 6. Type 2 diabetes mellitus: - On sliding scale, continue home medications. - On 2 gm sodium diet. - Lipitor 20 mg. 7. Allergic rhinitis: - On chronic loratadine. VS, I&O, 24H, [facility], 1928–1983 Vital Signs/I&O Vital Signs Date Time Temp Pulse Resp B/P (MAP) Pulse Ox O2 Delivery O2 Flow Rate FiO2 03/21/20 06:00 98.6 92 17 120/60 (80) 92 Room Air I&O- Last 24 Hours up to 6 AM 03/21/20 05:59 Intake Total 2035 ml Output Total 200 ml Balance 1835 ml Laboratory Data 24H LABS Laboratory Tests 2 03/20/20 16:19: Bedside Glucose (Misc Panel) 93 03/20/20 20:39: Bedside Glucose (Misc Panel) 274H 03/21/20 06:41: Bedside Glucose (Misc Panel) 188H 03/21/20 08:20: Immature Granulocyte % (Auto) 1.5, Neutrophils (%) (Auto) 72.2H, Lymphocytes (%) (Auto) 6.3L, Monocytes (%) (Auto) 13.2H, Eosinophils (%) (Auto) 6.1H, Basophils (%) (Auto) 0.7, Neutrophils # (Auto) 4.4, Lymphocytes # (Auto) 0.4L, Monocytes # (Auto) 0.8, Eosinophils # (Auto) 0.4, Basophils # (Auto) 0.0, Nucleated Red Blood Cells % (auto) 0.0, Anion Gap 7L, Glomerular Filtration Rate > 60.0, Calcium Level 7.2L, Vancomycin Level Trough 16.2 03/21/20 11:30: Bedside Glucose (Misc Panel) 230H CBC/BMP Laboratory Tests 03/21/20 08:20 Microbiology Microbiology 03/20/20 Gram Stain - Final, Resulted 03/20/20 Sputum Culture, Resulted Pending 03/17/20 Urine Culture - Final, Complete 03/17/20 Respiratory Virus Panel (PCR) (JULIO) - Final, Complete 03/17/20 Blood Culture - Preliminary, Resulted No Growth after 72 hours. All specime... 03/17/20 Blood Culture - Preliminary, Resulted No Growth after 72 hours. All specime... ALIZA BRADSHAW MD Mar 21, 2020 13:55
[2020-03-21 14:00] VITALS: BP 138/69
[2020-03-21] MEDS: ACETAMINOPHEN 650MG ER TAB (TYLENOL ARTHRITIS) PO PRN (14:22)
--- NOTE | 2020-03-21 18:32 | IPNPDOC ---
Date Seen The patient was seen on 03/21/20. Progress Note Note written by Ole Huizar MD and reviewed. I have personally evaluated and examined the patient. Discussed with resident regarding plan of care and agree with the above assessment and plan. Subjective: Ms. Alford was seen on 03/21/2020 at bedside and she reports feeling good and her cough has improved. She says her appetite is back and able to eat. She had a temperature of 101.2 yesterday evening, but she denies feeling it. She denies having pain in her abdomen. Objective: General: Patient is awake, alert, oriented times three, no apparent distress. Eyes: Conjunctiva clear, pupils equal round and reactive to light and accommodation. EOM full, Fundus: not visualized. ENT: Hearing Bilateral normal. No nasal deviation, dry mucous membrane, oral thrush noted. Neck: supple, no masses, trachea midline, no thyroid nodules, masses, tenderness or enlargement. Cardiovascular: S1, S2, normal rhythm, no murmur, rub, or gallop. Respiratory: [place] crackles heard on left lower lobes, breath sounds on rest of lung are normal. No rhonchi, wheezes or rubs. Abdomen: Soft, bowel sounds positive, no bruits. Extremities: No clubbing or cyanosis. No edema, no tenderness. Spine: No kyphosis, no para-spinal tenderness, no costovertebral tenderness. Central nervous system (COMMUNITY OUTREACH COORDINATOR): Awake, alert and fully oriented. Skin: No rashes, lesions, ulcerations, subcutaneous nodules or induration. Assessment: A 69-year-old female patient with breast cancer diagnosed in 1998, metastatic to lung, right eye, bone, pancreas, TIA, diastolic heart failure with preserved ejection fraction of 65%, barretts esophagus, pulmonary embolism on chronic anticoagulation, presented to the ED with several days of fever, chills, cough, shortness of breath and vomiting. Plan: 1. Sepsis Secondary to pneumonia: - Immunocompromised patient on treatment for recurrent metastatic breast cancer. - She did get a dose of Rocephin and doxycycline in ED and a dose of azithromycin. - She is on day 4 of Zosyn. WBC 6.1 [was on immunosuppressive therapy prior to admission] - Her MRSA screen positive, so started her on vancomycin (Day 3), vancomycin trough WNL. - Infectious disease, Dr. Marie consulted, will appreciate her input and recommendations. - Serology for legionella, S.pneumonia negative. - Her urine cultures and 2 blood cultures (03/17/2020) were negative. -Sputum culture pending and Gram stain showed yeast like organism and few gram positive cocci in chains. 2. Oral Thrush: - Started on fluconazole 200 mg (day 2) 3. Recurrent breast cancer with metastases: - Initial diagnosis was in 1998, metastasis to bone, lung and right eye and 2008. - She was seeing Dr. Alva for her cancer. - MRI brain without contrast [03/18/2020]: No evidence of intracranial metastatic disease, age-related white matter changes, mild parenchymal volume loss. -CT abdomen/pelvis with IV contrast [03/18/2020]: Gallbladder hydrops and intra- pancreatic ductal dilatation since the last exam, cannot rule out the possibility of new pancreatic neoplasms. This along with possible Klatskin tumor, cannot be ruled out. There is small bowel ileus. Extensive consolidation of left lower lung lobe, which has developed since the last exam. - Spoke to oncology and her date for follow up was moved forward to 24 9 AM, will be seeing Dr. Vargas. - Spoke to , updated him regarding her imaging and prepone of follow-up appointment. 4. Pulmonary embolism: - On chronic Eliquis 5mg. 5. Barretts esophagus: - Her last EGD per patient was okay. - Repeat EGD in 3 years as per GI recommendations, at [facility] in [place]. - Continue Protonix 40 MG twice a day 6. Type 2 diabetes mellitus: - On sliding scale, continue home medications. - On 2 gm sodium diet. - Lipitor 20 mg. 7. Allergic rhinitis: - On chronic loratadine. VS, I&O, 24H, Fishbone Vital Signs/I&O Vital Signs Date Time Temp Pulse Resp B/P (MAP) Pulse Ox O2 Delivery O2 Flow Rate FiO2 03/21/20 17:30 97.7 03/21/20 14:00 95 18 138/69 (92) 96 Room Air I&O- Last 24 Hours up to 6 AM 03/21/20 06:00 Intake Total 1080 ml Balance 1080 ml Laboratory Data 24H LABS Laboratory Tests 2 03/20/20 20:39: Bedside Glucose (Misc Panel) 274H 03/21/20 06:41: Bedside Glucose (Misc Panel) 188H 03/21/20 08:20: Immature Granulocyte % (Auto) 1.5, Neutrophils (%) (Auto) 72.2H, Lymphocytes (%) (Auto) 6.3L, Monocytes (%) (Auto) 13.2H, Eosinophils (%) (Auto) 6.1H, Basophils (%) (Auto) 0.7, Neutrophils # (Auto) 4.4, Lymphocytes # (Auto) 0.4L, Monocytes # (Auto) 0.8, Eosinophils # (Auto) 0.4, Basophils # (Auto) 0.0, Nucleated Red Blood Cells % (auto) 0.0, Anion Gap 7L, Glomerular Filtration Rate > 60.0, Calcium Level 7.2L, Vancomycin Level Trough 16.2 03/21/20 11:30: Bedside Glucose (Misc Panel) 230H 03/21/20 17:12: Bedside Glucose (Misc Panel) 219H CBC/BMP Laboratory Tests 03/21/20 08:20 Microbiology Microbiology 03/20/20 Gram Stain - Final, Resulted 03/20/20 Sputum Culture, Resulted Pending 03/17/20 Urine Culture - Final, Complete 03/17/20 Respiratory Virus Panel (PCR) (JULIO) - Final, Complete 03/17/20 Blood Culture - Preliminary, Resulted No Growth after 72 hours. All specime... 03/17/20 Blood Culture - Preliminary, Resulted No Growth after 72 hours. All specime... ALIZA BRADSHAW MD Mar 21, 2020 18:32
[2020-03-21] MEDS: ATORVASTATIN 20 MG TAB PO SCH (21:14)
[2020-03-21 22:00] VITALS: BP 147/70
[2020-03-22 02:00] VITALS: BP 146/68
[2020-03-22] MEDS: PIPERACILLIN/TAZOBACTAM SOD 4.5 GM in D5W MINI-BAG PLUS 50 ML IV SCH ×4 (04:21→11:05)
[2020-03-22 06:00] VITALS: BP 142/62
[2020-03-22 06:23] LABS: BASO # 0.1 10^3/uL (0.0-0.2); BASO % 0.7 % (0.0-1.0); EOS # 0.4 10^3/uL (0.0-0.5); EOS % 6.1 % (0.0-3.0); HEMATOCRIT 23.5 % (36.0-47.0); HEMOGLOBIN 8.2 g/dl (12.0-15.5); LYMPH # 0.5 10^3/uL (1.5-5.0); LYMPH % 7.6 % (24.0-44.0); MEAN CORPUSCULAR HEMOGLOBIN 34.7 pg (27.0-33.0); MEAN CORPUSCULAR HGB CONC 34.9 g/dl (32.0-36.5); MEAN CORPUSCULAR VOLUME 99.6 fl (80.0-96.0); MONO # 1.1 10^3/uL (0.0-0.8); MONO % 15.8 % (0.0-5.0); NEUTROPHILS # 4.6 10^3/uL (1.5-8.5); NEUTROPHILS % 67.6 % (36.0-66.0); PLATELET COUNT, AUTOMATED 250 10^3/uL (150-450); RED BLOOD COUNT 2.36 10^6/uL (4.00-5.40); WHITE BLOOD COUNT 6.9 10^3/uL (4.0-10.0)
[2020-03-22 06:50] LABS: BLOOD UREA NITROGEN 4 MG/DL (7-18); CALCIUM LEVEL 6.9 MG/DL (8.8-10.2); CARBON DIOXIDE LEVEL 21 MEQ/L (21-32); CHLORIDE LEVEL 109 MEQ/L (98-107); CREATININE FOR GFR 0.56 MG/DL (0.55-1.30); GLOMERULAR FILTRATION RATE > 60.0 (>39); GLUCOSE, FASTING 199 MG/DL (70-100); POTASSIUM SERUM 3.3 MEQ/L (3.5-5.1); SODIUM LEVEL 140 MEQ/L (136-145)
[2020-03-22] MEDS ORDERED: POTASSIUM CHLORIDE 10 MEQ SR TABLET PO ONE ×2 (08:15→12:15)
[2020-03-22] MEDS: HumaLOG INSULIN (NovoLOG) PER UNIT SC SCH ×2 (08:40→12:40)
[2020-03-22] MEDS: LORATADINE 10 MG TAB PO SCH (08:41)
[2020-03-22] MEDS: guaiFENesin ER 600 MG TAB PO SCH (08:41)
[2020-03-22] MEDS: FLUCONAZOLE 100 MG TAB PO SCH (08:41)
[2020-03-22] MEDS: APIXABAN 5 MG TAB (ELIQUIS) PO SCH (08:41)
[2020-03-22] MEDS: MULTIVITAMINS/MINERALS THERAP 1 TAB PO SCH (08:41)
[2020-03-22] MEDS: oxyBUTYnin *DITROPAN XL* 5 MG TABCR PO SCH (08:41)
[2020-03-22] MEDS: VENLAFAXINE **XR** 37.5 MG CAPSULE PO SCH (08:41)
[2020-03-22] MEDS: VANCOMYCIN HCL 1,000 MG, VIAL MATE ADAPTER 1 EACH in D5W 250 ML IV SCH (08:42)
[2020-03-22] MEDS: PANTOPRAZOLE 40MG TAB (PROTONIX) PO SCH (08:42)
[2020-03-22] MEDS ORDERED: DOXYCYCLINE HYCLATE 100MG TABLET PO SCH (09:00)
--- NOTE | 2020-03-22 09:35 | CR ---
DATE OF CONSULTATION: 03/21/2020 Asked to consult by hospitalist for evaluation of pneumonia and antibiotic management. HISTORY OF PRESENT ILLNESS: Trang is a pleasant 69-year-old female with a history of metastatic indolent breast cancer, estrogen positive, diagnosed in 1998. The patient initially was treated with lumpectomy and radiation. She then had recurrent disease in 2008 with metastatic lesions to the right eye, for which she was treated with radiation. She had been on hormone therapy with femara for years. Most recently, due to metastatic cancer to the pancreas she was started on exemestane 25 mg daily ,everolimus and denosumab. She started feeling sick about 2 weeks ago with a cough, fever, stomachache. She thought she had COVID-19 and therefore went to the drive-through for testing. The cough was nonproductive. She was feeling tired and weak and had no appetite. She lost about 5 pounds; had two episodes of vomiting but no diarrhea. The patient was hospitalized with worsening shortness of breath, sore throat. She has a temperature of 102 with edema and chest x-ray shows a left lower lobe pneumonia. PAST MEDICAL HISTORY: Significant for breast cancer diagnosed in 1998, recurred in 2008 with metastasis to bone, right eye and pancreas. There is esophagus, endoscopy at the [facility] in [place] November 2019, transient ischemic attack (TIA), overactive bladder, left bundle branch block, urinary tract infection with Klebsiella and Group B strep, left ventricular diastolic dysfunction with congestive heart failure, ejection fraction of 65%. History of pulmonary embolism on Eliquis. PAST SURGICAL HISTORY: Right lumpectomy in 1998, section. ALLERGIES: To GABAPENTIN and MEPERIDINE. HOME MEDICATIONS: - calcium with vitamin D 1 tablet twice a day - dexamethasone four times a day for mucositis - glipizide 10 mg twice a day - lidocaine patch daily - Eliquis 5 mg twice a day - Lipitor 20 mg daily - loratadine 10 mg daily - metformin 1 gram twice a day - multivitamin 1 tablet daily - oxybutynin 10 mg daily - Protonix 40 mg twice a day - Effexor 37.5 mg daily - IV Zosyn 3.375 grams every 6 hours (was started on 03/18/2020) - IV vancomycin (started on 03/19/2020) - fluconazole 200 mg daily - vancomycin 1 gram IV every 12 hours - Zosyn 4.5 grams IV every 6 hours SOCIAL HISTORY: She quit smoking in 1983. Previously smoked two packs a day for 15 years. Drinks a couple beers on the weekend. Retired from [employer]. She is , lives with her . She is a DO NOT RESUSCITATE. REVIEW OF SYSTEMS: She complains of cough, mild shortness of breath which has improved. She has a fever which has improved. She has some abdominal bloating and weight loss. LABORATORY DATA: White count is 6.1, hemoglobin 8.2, hematocrit 23.7, platelets 206, 72% neutrophils, 6% lymphocytes, 13% monocytes, 6% eosinophils. Sodium 142, potassium 3.7, chloride 112, bicarbonate 23, BUN 6, creatinine 0.65, glucose 180, calcium 7.2. Procalcitonin 2.8. AST 45, ALT 53. Vancomycin trough 16.2. MRSA screen was detected, which is a new finding for her, she has never had MRSA. Urine Legionella antigen and pneumococcal antigen negative. MICROBIOLOGY: Blood cultures two sets are negative, on 03/17/2020, respiratory panel was negative including COVID-19. Urine culture is negative. Sputum gram-stain moderate white cells, moderate epithelial cells, a few gram positive cocci in chains. IMAGING STUDIES: CT abdomen shows gallbladder hydrops with hepatic duct dilatation. Recommended pancreatic MRI. Small bowel ileus extensive consolidation of left lower lobe. 03/18/2020 liver ultrasound again shows hydrops with common bile duct dilatation 1.3 cm and a 3 cm pancreatic mass. 03/18/2020 brain MRI showed white matter changes with no metastasis. chest x-ray left lower lobe pneumonia. PHYSICAL EXAMINATION: Maximum temperature (Tmax) 100.2 today. Yesterday it was 101.29 and on admission was 102.4. Pulse 95, respirations 18, blood pressure 138/69, oxygen saturation 96% on room air. Heart: Normal S1 and S2. No murmurs, rubs or gallops. Lungs: Diminished breath sounds at the left base at least residential up, few crackles. Right lung clear. Abdomen: Soft, nontender. No visceromegaly. Back: No costovertebral angle (CVA) or lumbosacral tenderness. Extremities: No clubbing, cyanosis or edema. No calf tenderness. No swelling. Neurologic Exam: Alert and oriented times three. Motor strength normal. IMPRESSION: This is a 69-year-old female with a history of metastatic breast cancer to the pancreas, lung, eye, who recently was switched to a new chemotherapy following which she started feeling ill with cough, shortness of breath and fever. She a new left lower lobe pneumonia. She has clinically improved with IV Zosyn and vancomycin. She screened positive for MRSA and therefore, vancomycin was added. PLAN Continue with IV Zosyn and suggest switching vancomycin to oral doxycycline. That should cover for atypical pathogens as well as for MRSA. Currently chemotherapy on hold. Waiting sputum culture will decide on further management. MTDD
[2020-03-22 10:50] LABS: ALBUMIN 1.7 GM/DL (3.2-5.2)
[2020-03-22] MEDS ORDERED: FLUC100T PO (13:52)
[2020-03-22] MEDS ORDERED: DOXY100T PO (13:52)
--- NOTE | 2020-03-22 13:55 | MEDONC ---
MEDICAL ONCOLOGY BRIEF TELEPHONE NOTE: DATE OF SERVICE: 03/18/2020. Trang was admitted to the hospital yesterday with fever and chills, diagnosed with pneumonia. She had called here earlier in the week attributing this to change of medication. She recently stopped Ibrance letrozole, and started everolimus and exemestane. However, I pointed out to Dr. Mata, the admitting hospitalist, Trang also recently underwent pancreatic biopsy showing metastatic breast cancer involving the pancreas. Given this recent biopsy, done while on Ibrance, which can be immunosuppressive, consideration also needs to be given for potential cholangitis type picture or pancreatic infection. Dr. Mata thanked me for the call and we will continue close monitoring. Trang is on antibiotics and as of this morning day afebrile. Electronically Signed by Megan David MD 03/27/2020 07:14 A DD: Megan David MD 03/18/2020 09:45 A DT: avni 03/22/2020 01:52 P CC:
--- NOTE | 2020-03-22 17:46 | IPN ---
DATE: 03/22/2020 Mrs. Alford is feeling great. Her cough has markedly improved. She still has some episodes of spasmodic cough, but they are mostly nonproductive. She has had no fever over the past 24 hours with a maximal temperature today of 99. HEART: Normal S1, S2. No murmurs, rubs, or gallops. Tachycardiac. LUNGS: Few crackles at the left base. Diminished. ABDOMEN: Soft, nontender. No hepatosplenomegaly. BACK: No costovertebral angle (CVA) tenderness. Respiratory rate 18, blood pressure 142/62, oxygen saturation 95% on room air. LABORATORY DATA: White count of 6.9, hemoglobin 8.2, hematocrit 23.5, platelets 250. Sodium 140, potassium 3.3, chloride 109, bicarbonate 21, BUN 4, creatinine 0.56, glucose 199, calcium 6.9, albumin 1.7. MRSA screen was positive. Urine Legionella antigen, pneumococcal antigen negative. Vancomycin trough was 16.2. Sputum culture is not final yet. Only had yeastlike organisms. Few and normal macario. Talk to microbiology lab. There may be a staphylococcus colony that needs further identification. IMPRESSION: Left lower lobe pneumonia without effusion. Sputum culture is still pending. The patient has responded to intravenous (IV) Zosyn. She has finished a 5-day course, and she is currently day #3 of IV vancomycin, since the patient was methicillin-resistant Staphylococcus aureus (MRSA) positive by nasal polymerase chain reaction (PCR). PLAN: Discharge the patient home on oral doxycycline 100 mg by mouth twice a day for 7 days. I do not see any indication for Diflucan. The patient had mild oral thrush on admission. She could be treated with nystatin swish and swallow four times a day for 7-10 days. Sputum culture positive for yeastlike organism is just colonization.
--- NOTE | 2020-03-22 19:23 | DS.PDOC ---
Discharge Summary General Date of Admission Mar 17, 2020 at 17:33 Date of Discharge 03/22/20 Discharge Summary Note written by Ole Huizar MD and reviewed. I have personally evaluated and examined the patient. Discussed with resident regarding plan of care and agree with the assessment and plan. PROCEDURES PERFORMED DURING STAY: [None]. ADMITTING DIAGNOSES: 1. Oligo metastatic indolent recurrent breast cancer, invasive ductal carcinoma. 2. Overactive bladder. 3. HFpEF, ejection fraction 65%. 4. Pulmonary embolism 5. Barretts esophagus 6. Diabetes mellitus type 2 7. Allergic rhinitis DISCHARGE DIAGNOSE: 1. Pneumonia 2. Recurrent breast cancer with metastasis/oligo metastatic indolent recurrent breast cancer. 3. Pulmonary embolism. 4. Barretts esophagus. 5. Type 2 diabetes. 6. Allergic rhinitis COMPLICATIONS/CHIEF COMPLAINT: Cough and shortness of breath HISTORY OF PRESENT ILLNESS: Ms. Alford is a 69-year-old female with a history of oligo metastatic indolent record and breast cancer, [place] positive, diagnosed in 1998, had lumpectomy and radiation. She had recurrence of disease in 2008 with metastatic lesions in the right eye and was treated with radiation and been on hormonal therapy since then. Recently she was diagnosed with metastatic to her pancreas stopped Ibrance letrozole, and started everolimus and exemestane. Presented to the emergency department with symptoms of fever, cough and some mild pain. She was feeling tired and had no appetite reports a 5 pound weight loss. She also reports having vomitings, but denies having any diarrhea. HOSPITAL COURSE: On admission her lactic acid was elevated, CXR showing left lobe pneumonia and was started antibiotics[Zosyn]. She got complete septic workup. Which later turned out to be MRSA positive. Legionella negative, strep pneumoniae negative, blood cultures negative and urine cultures negative. Then she was started on vancomycin. She had intermittent fevers as high as about 10 2F. Eventually, patient labs improved, but she was still having intermittent fevers and infectious diseases was consulted for the same. As per Dr. Marie recommendations switching patient from vancomycin to oral doxycycline as it covers atypical pathogens as well as MRSA. Follow up with Dr. Marie for further management as the sputum cultures were pending. Patient is feeling well & back to normal, with normal appetite and eating well. Addendum: Patient had a brain MRI, further concerns of cancer metastasis to the brain. She has a follow-up appointment with Dr. Vargas on the at 9 AM. DISCHARGE MEDICATIONS: Please see below. ALLERGIES: Please see below. PHYSICAL EXAMINATION ON DISCHARGE: VITAL SIGNS: Please see below. General: Patient is awake, alert, oriented times three, no apparent distress. Eyes: Conjunctiva clear, pupils equal round and reactive to light and accommodation. EOM full, Fundus: not visualized. ENT: Hearing Bilateral normal. No nasal deviation, normal mucous membrane, Neck: supple, no masses, trachea midline, no thyroid nodules, masses, tenderness or enlargement. Cardiovascular: S1, S2, normal rhythm, no murmur, rub, or gallop. Respiratory: [place] crackles heard on left lower lobes, breath sounds on right are normal. No rhonchi, wheezes or rubs. Abdomen: Soft, bowel sounds positive, no bruits. Extremities: No clubbing or cyanosis. No edema, no tenderness. Spine: No kyphosis, no para-spinal tenderness, no costovertebral tenderness. Central nervous system (MANAGER PROGRAMMING): Awake, alert and fully oriented. Skin: No rashes, lesions, ulcerations, subcutaneous nodules or induration. LABORATORY DATA: Please see below. IMAGING: Chest x-ray: IMPESSION: Left lower lobe pneumonia with a cross effusion. Brain MRI: IMPRESSION: 1. Scattered foci of T2 lengthening demonstrated in the subcortical and centrum semiovale white matter consistent with minimal age related white matter changes. 2. Mild parenchymal volume loss. 3. No evidence of intracranial metastatic disease. If there is a strong index of suspicion for metastatic disease, follow-up could be obtained with postcontrast imaging. Liver ultrasound: IMPRESSION: 1. Scattered foci of T2 lengthening demonstrated in the subcortical and centrum semiovale white matter consistent with minimal age related white matter changes. 2. Mild parenchymal volume loss. 3. No evidence of intracranial metastatic disease. If there is a strong index of suspicion for metastatic disease, follow-up could be obtained with postcontrast imaging. CT abdomen/pelvis: IMPRESSION: 1. Gallbladder hydrops and intrapancreatic ductal dilatation has developed since the last exam, etiology uncertain. Intrapancreatic ductal dilatation has developed since the last exam. I cannot rule out the possibility of a new pancreatic neoplasm, particularly affecting the pancreatic uncinate process where there is slight irregularity of the medial wall of the pancreas involving that portion. This, along with a possible [place] tumor, cannot be ruled out. Pancreatic MRI with MRA as individual separate dedicated studies recommended before and after intravenous gadolinium where appropriate. 2. There is a small bowel ileus. 3. Free fluid, as described above. 4. Extensive consolidation of the left lung lower lobe, which has developed since the last exam. Pneumonia/extensive atelectasis/combination of both. Followup is recommended. PROGNOSIS: Poor ACTIVITY: As tolerated DIET: Regular DISCHARGE PLAN: Discharge on oral antibiotics DISPOSITION: Discharge home DISCHARGE INSTRUCTIONS: 1. Take doxycycline 100 mg by mouth twice a day 7 days. 2. Continue taking fluconazole 200 mg tablet by mouth daily 11 days. ITEMS TO FOLLOWUP ON OUTPATIENT: 1. Follow up with Dr. Marie in one week. 2. Follow-up appointment with Dr. Vargas on the 29 March at 9 AM. 3. Follow up with your PCP in 7-10 days. DISCHARGE CONDITION: [Stable]. TIME SPENT ON DISCHARGE: 40 minutes. Vital Signs/I&Os Vital Signs Date Time Temp Pulse Resp B/P (MAP) Pulse Ox O2 Delivery O2 Flow Rate FiO2 03/22/20 06:00 98.9 102 18 142/62 (88) 95 Room Air I&O- Last 24 Hours up to 6 AM 03/22/20 06:00 Intake Total 1185 ml Output Total 900 ml Balance 285 ml Laboratory Data Labs 24H Laboratory Tests 2 03/21/20 19:54: Bedside Glucose (Misc Panel) 183H 03/22/20 04:02: Bedside Glucose (Misc Panel) 177H 03/22/20 05:52: Immature Granulocyte % (Auto) 2.2, Neutrophils (%) (Auto) 67.6H, Lymphocytes (%) (Auto) 7.6L, Monocytes (%) (Auto) 15.8H, Eosinophils (%) (Auto) 6.1H, Basophils (%) (Auto) 0.7, Neutrophils # (Auto) 4.6, Lymphocytes # (Auto) 0.5L, Monocytes # (Auto) 1.1H, Eosinophils # (Auto) 0.4, Basophils # (Auto) 0.1, Nucleated Red Blood Cells % (auto) 0.0, Anion Gap 10, Glomerular Filtration Rate > 60.0, Calcium Level 6.9L, Albumin 1.7L 03/22/20 12:00: Bedside Glucose (Misc Panel) 301H CBC/BMP Laboratory Tests 7/17/20 05:52 FSBS Laboratory Tests Test 03/21/20 19:54 03/22/20 04:02 03/22/20 12:00 Range/Units Bedside Glucose (Misc Panel) 183 177 301 83-110 MG/DL Microbiology Microbiology 03/20/20 Gram Stain - Final, Resulted 03/20/20 Sputum Culture - Preliminary, Resulted Yeast Like Organism 03/17/20 Urine Culture - Final, Complete 03/17/20 Respiratory Virus Panel (PCR) (JULIO) - Final, Complete 03/17/20 Blood Culture - Final, Complete NO GROWTH AFTER 5 DAYS 03/17/20 Blood Culture - Final, Complete NO GROWTH AFTER 5 DAYS Discharge Medications Scheduled Apixaban (Eliquis) 5 Mg Tablet, 5 MG PO BID, (Reported) Atorvastatin Calcium (Lipitor) 20 Mg Tab, 20 MG PO QHS, (Reported) Calcium Citrate/Vitamin D3 (Calcium Cit 200-Vit D3 250 Tab) 1 Tab Tab, 1 TAB PO BID, (Reported) Dexamethasone (Dexamethasone) 0.5 Mg/5 Ml Elixir, 10 ML PO QID for MUCOSITIS Doxycycline Hyclate (Doxycycline Hyclate) 100 Mg Tablet, 100 MG PO BID Fluconazole (Fluconazole) 100 Mg Tablet, 200 MG PO DAILY Glipizide (Glipizide) 10 Mg Tablet, 10 MG PO BID, (Reported) Lidocaine (Lidocaine Pain Relief) 1 Each Adh..patch, 1 PATCH TOP DAILY, (Reported) APPLY TO LOWER BACK Loratadine (Claritin) 10 Mg Cap, 10 MG PO DAILY, (Reported) Metformin HCl (Metformin HCl ER) 500 Mg Tab.er.24h, 1,000 MG PO BID, (Reported) Multivitamins (Thera M Plus Tablet) 1 Tab Tab, 1 TAB PO DAILY, (Reported) Oxybutynin Chloride (Oxybutynin Chloride ER) 10 Mg Tab.er.24, 10 MG PO DAILY, (Reported) Pantoprazole Sodium (Protonix) 40 Mg Tab, 40 MG PO BID, (Reported) Venlafaxine HCl (Effexor Xr) 37.5 Mg Cap, 37.5 MG PO DAILY, (Reported) Allergies Coded Allergies: gabapentin (Verified Allergy, Unknown, 03/17/20) meperidine (Verified Adverse Reaction, Mild, Vomiting, 11/30/18) ALIZA BRADSHAW MD Mar 22, 2020 19:23
== END 2020-03-22 14:42 | disposition home or self-care (01) | DRG 871 ==
LOC: M ED 15:12 → M ED INP 17:33 → ENRESERV 18:12 → M MSPAV 18:53
PROVIDERS: ADMIT General Practice; ATTEND Student in an Organized Health Care Education/Training Program
DX: A41.9 Sepsis, unspecified organism (principal); J15.212 Pneumonia due to Methicillin resistant Staphylococcus aureus; C79.51 Secondary malignant neoplasm of bone; C78.01 Secondary malignant neoplasm of right lung; C78.02 Secondary malignant neoplasm of left lung; C79.49 Secondary malignant neoplasm of other parts of nervous system; I50.32 Chronic diastolic (congestive) heart failure; C78.89 Secondary malignant neoplasm of other digestive organs; B37.0 Candidal stomatitis; E87.6 Hypokalemia; C50.911 Malignant neoplasm of unspecified site of right female breast; J30.9 Allergic rhinitis, unspecified; E11.9 Type 2 diabetes mellitus without complications; Z66 Do not resuscitate; K22.70 Barrett's esophagus without dysplasia; I44.7 Left bundle-branch block, unspecified; Z86.73 Personal history of transient ischemic attack (TIA), and cerebral infarction without residual deficits; N32.81 Overactive bladder; Z79.01 Long term (current) use of anticoagulants; Z86.711 Personal history of pulmonary embolism; Z79.84 Long term (current) use of oral hypoglycemic drugs; Z79.899 Other long term (current) drug therapy; Z87.891 Personal history of nicotine dependence; Z11.59 Encounter for screening for other viral diseases

== ENCOUNTER → 2020-04-15 | Outpatient (REF) | payer MEDICARE, OTHER ==
[~2020-04-15] MED LIST changes: +DOXY100T PO; +FLUC100T PO; +LANTINJ4; +METF-838 PO; +OXYB10TA23 PO
[2020-05-15 13:42] LABS: APPEARANCE, URINE TURBID (CLEAR); BACTERIA, URINE AUTO 2+ (NEGATIVE); BILIRUBIN, URINE AUTO 2+ (NEGATIVE); BLOOD, URINE BLOOD NEGATIVE (NEGATIVE); COLOR, URINE YELLOW (YELLOW); GLUCOSE, URINE (UA) AUTO 2+ mg/dL (NEGATIVE); KETONE, URINE AUTO NEGATIVE (NEGATIVE); LEUKOCYTE ESTERASE, URINE AUTO 2+ (NEGATIVE); MUCUS, URINE LARGE (NEGATIVE); NITRITE, URINE AUTO NEGATIVE (NEGATIVE); PROTEIN, URINE AUTO 2+ mg/dL (NEGATIVE); RBC, URINE AUTO 58 /HPF (0-3); SPECIFIC GRAVITY URINE AUTO 1.023 (1.002-1.035); SQUAMOUS EPITHELIAL CELL UR AU 3 /HPF (0-6); WBC, URINE AUTO TNTC /HPF (0-3)
== END ==
LOC: M LAB REF 09:03
PROVIDERS: ATTEND Internal Medicine
DX: R32 Unspecified urinary incontinence (principal)

== ENCOUNTER → 2020-04-29 | Outpatient (REF) | payer MEDICARE, OTHER ==
[2020-04-29 18:31] LABS: PERCENT SATURATION 10.4 % (13.2-45.0)
[2020-04-29 19:49] LABS: CA19-9 TUMOR MARKER,CARBOHYDRA 43.9 U/ML (<35.0)
== END ==
LOC: M LAB REF 17:26
PROVIDERS: ATTEND Internal Medicine
DX: D50.9 Iron deficiency anemia, unspecified (principal); C50.919 Malignant neoplasm of unspecified site of unspecified female breast

== ENCOUNTER → 2020-05-03 | Outpatient (REF) | payer MEDICARE, OTHER ==
[2020-05-03 17:32] LABS: AMORPHOUS SEDIMENT SMALL (NEGATIVE); APPEARANCE, URINE CLOUDY (CLEAR); BACTERIA, URINE AUTO 1+ (NEGATIVE); BILIRUBIN, URINE AUTO NEGATIVE (NEGATIVE); BLOOD, URINE BLOOD NEGATIVE (NEGATIVE); COLOR, URINE AMBER (YELLOW); GLUCOSE, URINE (UA) AUTO 3+ mg/dL (NEGATIVE); GRANULAR CAST, URINE AUTO 8 /LPF; KETONE, URINE AUTO NEGATIVE (NEGATIVE); LEUKOCYTE ESTERASE, URINE AUTO 3+ (NEGATIVE); MUCUS, URINE SMALL (NEGATIVE); NITRITE, URINE AUTO NEGATIVE (NEGATIVE); PROTEIN, URINE AUTO 1+ mg/dL (NEGATIVE); RBC, URINE AUTO 6 /HPF (0-3); SPECIFIC GRAVITY URINE AUTO 1.016 (1.002-1.035); SQUAMOUS EPITHELIAL CELL UR AU 2 /HPF (0-6); TRANSITIONAL EPITHELIAL AUTO 1 /HPF; UROBILINOGEN, URINE AUTO 0.2 mg/dL (0.0-2.0); WBC, URINE AUTO 62 /HPF (0-3)
== END ==
LOC: M LAB REF 16:54
PROVIDERS: ATTEND Internal Medicine
DX: R32 Unspecified urinary incontinence (principal); N39.0 Urinary tract infection, site not specified

== ENCOUNTER → 2020-05-10 13:59 | Outpatient (RCR) | payer MEDICARE, OTHER ==
[2018-06-10 10:04] LABS: HEMATOCRIT 35.6 % (37.0-51.0); HEMOGLOBIN 11.8 g/dl (12.0-18.0); LYMPH % 42.1 % (10.0-58.5); MEAN CORPUSCULAR HEMOGLOBIN 38.4 pg (26.0-32.0); MEAN CORPUSCULAR HGB CONC 33.1 g/dl (31.0-36.0); MEAN CORPUSCULAR VOLUME > 115.0 fl (80.0-97.0); NEUTROPHILS # 1.2 10^3/uL (2.0-7.8); NEUTROPHILS % 42.7 % (37.0-92.0); PLATELET COUNT, AUTOMATED 227 10^3/uL (140-440); RED BLOOD COUNT 3.07 10^6/uL (4.2-6.3); WHITE BLOOD COUNT 2.8 10^3/uL (4.1-10.9)
[2018-06-10 10:22] LABS: ALBUMIN 4.2 GM/DL (3.5-5.2); BLOOD UREA NITROGEN 13 MG/DL (6-20); CALCIUM LEVEL 9.2 MG/DL (8.5-10.2); CARBON DIOXIDE LEVEL 25.7 MEQ/L (23-31); CHLORIDE LEVEL 105 MMOL/L (98-107); CREATININE FOR GFR 0.96 MG/DL (0.60-1.10); GLOMERULAR FILTRATION RATE > 60.0 (>39); GLUCOSE, FASTING 124 MG/DL (70-105); POTASSIUM SERUM 4.5 MMOL/L (3.5-5.1); SODIUM LEVEL 137.2 MMOL/L (136-145); TOTAL PROTEIN 6.6 GM/DL (6.4-8.3)
[2018-06-10 10:48] VITALS: BP 137/80
[2018-07-08 10:47] LABS: HEMATOCRIT 36.2 % (37.0-51.0); HEMOGLOBIN 12.1 g/dl (12.0-18.0); MEAN CORPUSCULAR HEMOGLOBIN 39.2 pg (26.0-32.0); MEAN CORPUSCULAR HGB CONC 33.4 g/dl (31.0-36.0); MEAN CORPUSCULAR VOLUME > 115.0 fl (80.0-97.0); NEUTROPHILS # 1.2 10^3/uL (2.0-7.8); NEUTROPHILS % 38.2 % (37.0-92.0); PLATELET COUNT, AUTOMATED 241 10^3/uL (140-440); RED BLOOD COUNT 3.09 10^6/uL (4.2-6.3); WHITE BLOOD COUNT 3.1 10^3/uL (4.1-10.9)
[2018-07-08 10:56] VITALS: BP 142/86
[2018-07-08 11:01] LABS: ALBUMIN 4.3 GM/DL (3.5-5.2); CALCIUM LEVEL 9.3 MG/DL (8.5-10.2); CREATININE FOR GFR 1.02 MG/DL (0.60-1.10); POTASSIUM SERUM 3.7 MMOL/L (3.5-5.1); TOTAL PROTEIN 6.6 GM/DL (6.4-8.3)
[2018-08-04 10:34] LABS: HEMATOCRIT 37.5 % (37.0-51.0); HEMOGLOBIN 12.3 g/dl (12.0-18.0); LYMPH % 41.5 % (10.0-58.5); MEAN CORPUSCULAR HEMOGLOBIN 38.2 pg (26.0-32.0); MEAN CORPUSCULAR HGB CONC 32.8 g/dl (31.0-36.0); MEAN CORPUSCULAR VOLUME > 115.0 fl (80.0-97.0); NEUTROPHILS # 1.7 10^3/uL (2.0-7.8); NEUTROPHILS % 45.9 % (37.0-92.0); PLATELET COUNT, AUTOMATED 207 10^3/uL (140-440); RED BLOOD COUNT 3.22 10^6/uL (4.2-6.3); WHITE BLOOD COUNT 3.6 10^3/uL (4.1-10.9)
[2018-08-04 11:33] LABS: ALBUMIN 4.2 GM/DL (3.5-5.2); CALCIUM LEVEL 10.1 MG/DL (8.5-10.2); CREATININE FOR GFR 1.12 MG/DL (0.60-1.10); GLOMERULAR FILTRATION RATE 51.2 (>39); POTASSIUM SERUM 4.5 MMOL/L (3.5-5.1); TOTAL PROTEIN 6.5 GM/DL (6.4-8.3)
[2018-08-05 11:38] VITALS: BP 145/83
[2018-09-08 10:06] LABS: HEMATOCRIT 35.8 % (36.0-47.0); HEMOGLOBIN 11.8 g/dl (12.0-15.5); LYMPH % 39.2 % (24.0-44.0); MEAN CORPUSCULAR HEMOGLOBIN 37.8 pg (27.0-33.0); MEAN CORPUSCULAR VOLUME 114.9 fl (80.0-96.0); NEUTROPHILS # 1.7 10^3/uL (1.8-7.7); NEUTROPHILS % 46.4 % (36.0-66.0); RED BLOOD COUNT 3.12 10^6/uL (4.00-5.40); WHITE BLOOD COUNT 3.6 10^3/uL (4.0-10.0)
[2018-09-08 11:07] LABS: ALBUMIN 4.2 GM/DL (3.5-5.2); BLOOD UREA NITROGEN 11 MG/DL (6-20); CALCIUM LEVEL 9.2 MG/DL (8.5-10.2); CARBON DIOXIDE LEVEL 25 MEQ/L (23-31); CHLORIDE LEVEL 107 MMOL/L (98-107); GLOMERULAR FILTRATION RATE > 60.0 (>39); GLUCOSE, FASTING 137 MG/DL (70-105); POTASSIUM SERUM 3.9 MMOL/L (3.5-5.1); SODIUM LEVEL 141 MMOL/L (136-145); TOTAL PROTEIN 6.5 GM/DL (6.4-8.3)
[2018-09-09 09:21] VITALS: BP 147/80
[2018-09-30 10:14] VITALS: BP 134/75
[2018-09-30 10:29] LABS: ALBUMIN 4.3 GM/DL (3.5-5.2); CALCIUM LEVEL 9.4 MG/DL (8.5-10.2); CREATININE FOR GFR 1.2 MG/DL (0.60-1.10); GLOMERULAR FILTRATION RATE 47.3 (>39); POTASSIUM SERUM 3.6 MMOL/L (3.5-5.1)
[2018-09-30 10:32] LABS: HEMATOCRIT 37.6 % (36.0-47.0); HEMOGLOBIN 12.3 g/dl (12.0-15.5); LYMPH % 49.4 % (24.0-44.0); MEAN CORPUSCULAR HEMOGLOBIN 38.1 pg (27.0-33.0); MEAN CORPUSCULAR HGB CONC 32.7 g/dl (32.0-36.5); MEAN CORPUSCULAR VOLUME > 115.0 fl (80.0-96.0); NEUTROPHILS # 1.1 10^3/uL (1.8-7.7); NEUTROPHILS % 33.4 % (36.0-66.0); PLATELET COUNT, AUTOMATED 193 10^3/uL (150-450); RED BLOOD COUNT 3.23 10^6/uL (4.00-5.40); WHITE BLOOD COUNT 3.2 10^3/uL (4.0-10.0)
--- NOTE | 2018-10-01 09:10 | MEDONC ---
MEDICAL ONCOLOGY FOLLOWUP DATE OF SERVICE: 09/30/2018 DIAGNOSIS: 1. 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 Asymptomatic. 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 Sotelo. 2. Chronic low back pain. Musculoskeletal followed by [facility] in [place] receiving periodic LS spine injections. MRI of spine February 2018 negative for metastatic recurrence. CURRENT THERAPY: Palbociclib 125 mg days 1 through 21, q. 28 days begun September 2015. Letrozole 2.5 mg daily begun April 2016 (switched from fulvestrant due to gluteal injection pain). Denosumab 120 mg q. 4 weeks begun 2012 delayed occasionally for travel. TREATMENT HISTORY: Please see detailed history 03/17/2018 note. INTERIM HISTORY: Trang is here in fact scheduled 1 week earlier than she was supposed to be for her denosumab and labs. Actually we had planned for her to be seen in the office every 12 weeks rather than every 4 or 8, so we straightened out today that she would like to continue on the every 12-week history and physical, every 4-week labs and denosumab. REVIEW OF SYSTEMS: Trang says there is absolutely nothing wrong. She feels fine. She has no symptoms. She denies any new ocular, vision, headache, musculoskeletal symptoms at all breathing, chest pain, chest wall or breast symptoms, any underarm lumps or bumps any leg swelling or cramping. PHYSICAL EXAMINATION: Weight is 75 kg, temperature 97.3, blood pressure 134/75, heart rate 104, respiratory 24, O2 sat 95%. The patient is a very pleasant well-groomed 68-year-old woman, normal weight, no distress. RESPIRATORY: Clear lungs to auscultation bilaterally, anteriorly and posteriorly. CARDIAC: S1-S2 regular rate and rhythm. No audible murmur. ABDOMEN: Soft, nontender, nondistended, no hepatosplenomegaly or mass. EXTREMITIES: No edema. LYMPH NODES: No palpable submandibular, cervical, supraclavicular or axillary adenopathy bilaterally. BREAST EXAM: Deferred. MUSCULOSKELETAL: No vertebral tenderness to percussion. LABORATORY DATA: WBC 3.2, ANC 1100, hemoglobin 12.3, hematocrit 37.6, platelets 193. Electrolytes normal, creatinine today 1.2, BUN 12. Glucose 175. Liver functions normal. CA27.29 pending. Most recent 09/08/2018 was 55 within Trang's range. IMPRESSION: Oligometastatic ER positive, HER2 negative breast cancer in clinical and metabolic complete remission by recent PET and on clinical exam. Currently maintained on letrozole, palbociclib, and denosumab. Exam unremarkable today. Trang has on-off right eyelid irritation and infections secondary to prior radiation for retinal metastatic recurrence and is followed by ophthalmology. She has grade 1-2 neutropenia on palbociclib tolerating it extremely well, not requiring dose reduction as of today. PLAN: 1. Return in 1 week for denosumab 120 mg subcu, stat CMP 1 day prior. 2. Return 4 weeks from 10/07/2018 for denosumab; CBC, CMP, CA27.29 1 day prior. 3. Return in 8 weeks from 10/07/2018, for denosumab; labs 1 day prior CBC, CMP, CA27.29. 4. Return in 12 weeks from 10/07/2018 for denosumab, office visit with a history and physical; labs 1 day prior CBC, CMP, CA27.29. Electronically Signed by Megan David MD 10/04/2018 12:52 P DD: Megan David MD 09/30/2018 10:44 A DT: [email or web address] 10/01/2018 08:54 A CC: MD Raúl Yao MD Julie LaPointe, MD Bryan Rutledge, MD
[2018-10-06 13:55] LABS: ALBUMIN 4.2 GM/DL (3.5-5.2); CALCIUM LEVEL 9.5 MG/DL (8.5-10.2); CREATININE FOR GFR 0.99 MG/DL (0.60-1.10); TOTAL PROTEIN 6.8 GM/DL (6.4-8.3)
[2018-11-03 13:30] LABS: HEMATOCRIT 35.7 % (36.0-47.0); HEMOGLOBIN 11.8 g/dl (12.0-15.5); LYMPH % 46.2 % (24.0-44.0); MEAN CORPUSCULAR HEMOGLOBIN 37.6 pg (27.0-33.0); MEAN CORPUSCULAR HGB CONC 33.1 g/dl (32.0-36.5); MEAN CORPUSCULAR VOLUME 113.6 fl (80.0-96.0); NEUTROPHILS # 1.3 10^3/uL (1.8-7.7); NEUTROPHILS % 33.4 % (36.0-66.0); RED BLOOD COUNT 3.14 10^6/uL (4.00-5.40); WHITE BLOOD COUNT 3.9 10^3/uL (4.0-10.0)
[2018-11-03 14:13] LABS: ALBUMIN 4.4 GM/DL (3.5-5.2); CALCIUM LEVEL 8.5 MG/DL (8.5-10.2); CREATININE FOR GFR 0.98 MG/DL (0.60-1.10); GLOMERULAR FILTRATION RATE 59.7 (>39); TOTAL PROTEIN 6.8 GM/DL (6.4-8.3)
[2018-12-01 13:22] LABS: HEMATOCRIT 34.9 % (36.0-47.0); HEMOGLOBIN 11.7 g/dl (12.0-15.5); LYMPH % 39.8 % (24.0-44.0); MEAN CORPUSCULAR HEMOGLOBIN 37.6 pg (27.0-33.0); MEAN CORPUSCULAR HGB CONC 33.5 g/dl (32.0-36.5); MEAN CORPUSCULAR VOLUME 112.2 fl (80.0-96.0); NEUTROPHILS # 1.6 10^3/uL (1.8-7.7); NEUTROPHILS % 46.6 % (36.0-66.0); RED BLOOD COUNT 3.11 10^6/uL (4.00-5.40); WHITE BLOOD COUNT 3.4 10^3/uL (4.0-10.0)
[2018-12-01 14:06] LABS: ALBUMIN 4.2 GM/DL (3.5-5.2); CALCIUM LEVEL 8.8 MG/DL (8.5-10.2); CREATININE FOR GFR 1.02 MG/DL (0.60-1.10); POTASSIUM SERUM 3.9 MMOL/L (3.5-5.1); TOTAL PROTEIN 6.5 GM/DL (6.4-8.3)
[2018-12-02 08:41] VITALS: BP 143/85
[2018-12-29 13:36] LABS: HEMATOCRIT 34.7 % (36.0-47.0); HEMOGLOBIN 11.4 g/dl (12.0-15.5); LYMPH % 34.4 % (24.0-44.0); MEAN CORPUSCULAR HEMOGLOBIN 36.8 pg (27.0-33.0); MEAN CORPUSCULAR HGB CONC 32.9 g/dl (32.0-36.5); MEAN CORPUSCULAR VOLUME 111.9 fl (80.0-96.0); NEUTROPHILS # 2.5 10^3/uL (1.8-7.7); NEUTROPHILS % 54.4 % (36.0-66.0); RED BLOOD COUNT 3.1 10^6/uL (4.00-5.40); WHITE BLOOD COUNT 4.6 10^3/uL (4.0-10.0)
[2018-12-29 14:16] LABS: ALBUMIN 4.1 GM/DL (3.5-5.2); BLOOD UREA NITROGEN 6 MG/DL (6-20); CALCIUM LEVEL 8.5 MG/DL (8.5-10.2); CARBON DIOXIDE LEVEL 24 MEQ/L (23-31); CHLORIDE LEVEL 105 MMOL/L (98-107); CREATININE FOR GFR 0.95 MG/DL (0.60-1.10); GLOMERULAR FILTRATION RATE > 60.0 (>39); GLUCOSE, FASTING 120 MG/DL (70-105); POTASSIUM SERUM 3.8 MMOL/L (3.5-5.1); SODIUM LEVEL 141 MMOL/L (135-145); TOTAL PROTEIN 6.5 GM/DL (6.4-8.3)
[2018-12-30 08:06] VITALS: BP 108/65
--- NOTE | 2019-01-03 10:12 | MEDONC ---
MEDICAL ONCOLOGY FOLLOWUP DATE OF SERVICE: 12/30/2018 DIAGNOSES: 1. Oligometastatic ER positive, HER2/yael negative breast cancer sequentially involving retina and skeleton over many years, currently in complete response of June 2018 PET. Maintained on AI / CPK 46 inhibitor / denosumab as third line endocrine therapy. Asymptomatic. Chronic intermittent right eyelid inflammation due to postradiation changes and followed by Dr. Alex Mora. 2. Chronic low back pain, musculoskeletal, followed by [facility] in [place], receiving periodic LS spine injections. February 2018 MRI negative for metastatic recurrence. CURRENT THERAPY: Palbociclib 125 mg days 1 through 21 q. 28 days begun September 2015. Letrozole 2.5 mg daily begun April 2016 (switched from Fulvestrant due to gluteal injection pain). Denosumab 120 mg q. to 4 weeks begun 2012, delayed occasionally for travel. TREATMENT HISTORY: See 03/17/2018 note. INTERVAL HISTORY: Trang complains today of two things. First, she thinks she has croup having been exposed to a granddaughter who had croup and she and her are now hoarse, have cough and chest symptoms. The hoarseness bothers her the most. She denies fevers or chills or productive cough. Second, she reports diarrhea sort of frequently, had a hard time quantifying it but every day now for many months (previously not reported). The patient denies blood in the diarrhea, was not treated with antibiotics recently. REVIEW OF SYSTEMS: In addition to the diarrhea and respiratory complaints as above, Trang denies any new musculoskeletal pain, nausea, vomiting, headache, visual disturbance, unintended weight loss. Remainder of 12 system review negative. PHYSICAL EXAMINATION: Weight 72 kg, temperature 96, blood pressure 108/65, heart rate 99, respiratory 20, O2 sat 95%. Patient is a tall, well-groomed, older woman in no distress. Respiratory: Occasional inspiratory wheeze scattered throughout the lung hernandez, posteriorly. Anteriorly, occasional inspiratory wheeze. No maría stridor. Cardiac: S1, S2, 1/6 systolic murmur. No gallops. Abdomen: Soft, nontender, nondistended, no hepatosplenomegaly or mass. Extremities: No edema. Lymph nodes: No palpable submandibular, cervical, supraclavicular or axillary adenopathy bilaterally. HEENT: Oropharynx and soft palate are generally erythematous without swelling. No exudate. No white plaque. Uvula is normal appearing and midline. LABORATORIES: From 12/29/2018: WBC 4.6, hemoglobin 11.4, hematocrit 34.7, platelets 398, MCV 112. Electrolytes, liver functions normal. CA27.29 pending, most recent 54. IMPRESSION: 1. Oligometastatic ER positive, HER2/yael negative breast cancer in CR for several years on palbociclib, letrozole and denosumab. Trang has a new complaints of hoarseness this with some wheezes on exam. No fever, most likely a viral respiratory infection, doubt croup, but will provide a very brief prednisone taper. 2. Diarrhea, chronic, very possibly related to palbociclib. I recommended we decrease the dose to 100 mg daily. I also recommended holding palbociclib as she recovers from this respiratory infection. After discussion, Trang agreed to all the above. PLAN: 1. Hold palblociclib until all respiratory symptoms resolve. 2. Decrease palblociclib dose to 100 mg days 1 through 21 q. 28 days. 3. Prednisone 40 mg daily for 2 days. 4. Increase interval between denosumab to 90 days. Trang has been on denosumab now for 5 years. Her risk of OMJ will climb. She is not interested in a treatment holiday but is agreeable to an every 3-month dosing scheme. 4. Return to clinic in 1 month. CBC, CMP, CA27.29, clinical exam. Electronically Signed by Megan David MD 01/03/2019 04:54 P DD: Megan David MD 12/30/2018 01:48 P DT: [email or web address] 01/03/2019 10:03 A CC: MD Raúl Yao MD Julie LaPointe, MD Bryan Rutledge, MD
[2019-02-01 09:17] LABS: ALBUMIN 4.1 GM/DL (3.5-5.2); CALCIUM LEVEL 8.9 MG/DL (8.5-10.2); CREATININE FOR GFR 1.01 MG/DL (0.60-1.10); GLOMERULAR FILTRATION RATE 57.7 (>39); POTASSIUM SERUM 4.2 MMOL/L (3.5-5.1); TOTAL PROTEIN 6.3 GM/DL (6.4-8.3)
[2019-02-01 09:42] LABS: HEMATOCRIT 36.4 % (36.0-47.0); HEMOGLOBIN 12.2 g/dl (12.0-15.5); LYMPH % 37.6 % (24.0-44.0); MEAN CORPUSCULAR HGB CONC 33.5 g/dl (32.0-36.5); MEAN CORPUSCULAR VOLUME 110.3 fl (80.0-96.0); NEUTROPHILS # 1.5 10^3/uL (1.8-7.7); RED BLOOD COUNT 3.3 10^6/uL (4.00-5.40); WHITE BLOOD COUNT 2.8 10^3/uL (4.0-10.0)
[2019-02-03 10:06] VITALS: BP 125/77
--- NOTE | 2019-02-05 11:57 | MEDONC ---
MEDICAL ONCOLOGY FOLLOWUP DATE OF SERVICE: 02/03/2019 DIAGNOSIS: 1. Oligometastatic ER positive, HER2 negative breast cancer sequentially involving retina and skeleton over many years currently in complete metabolic response as of June 2018 PET. Followed annually with PET under Estella Bass MD in [place]. Maintained on AI/CPK 4/6 inhibitor / denosumab as third line endocrine therapy in the metastatic setting. Asymptomatic. Chronic intermittent right eyelid inflammation due to postradiation changes and followed by Dr. Sotelo. 2. Chronic low back pain, musculoskeletal / mechanical, followed by [facility] in [place], [place] receiving periodic LS spine injections. February 2018 MRI negative for metastatic recurrence. Currently asymptomatic. CURRENT THERAPY: Palbociclib now reduced to 100 mg daily days 1-21 q. 28 days begun originally February 2016 at 125 mg dose; dose reduction as of January 2019. letrozole 2.5 mg daily begun April 2016 (switched from fulvestrant due to gluteal injection pain). denosumab 120 mg q. 4 weeks begun 2012, occasionally delayed for travel; as of Spring 2018 transitioning to q. 3 months schedule next due last week of February or first week of March (most recent 12/02/2018). TREATMENT HISTORY: See 03/17/2018 note. INTERVAL HISTORY: Trang is still dealing with some congestion, postnasal drip and a little cough. She has no major chest symptoms, mostly bothered by sinus symptoms. She denies fevers, chills, headache or fever. She does use an inhaler occasionally. She has been exposed to a granddaughter with a similar ailment and thinks she caught it from her. She is otherwise feeling fine and doing her usual activities. REVIEW OF SYSTEMS: In addition to pertinent positives and negatives above, the patient denies new musculoskeletal pain, chest wall lumps, bumps, nausea, vomiting, unintended weight loss, diarrhea, constipation, hemoptysis, visual disturbance. Remainder of 12 system review negative. PHYSICAL EXAMINATION: Weight 73 kg, temperature 97.8, blood pressure 125/77, heart rate 96, respiratory 20. Patient is a tall, well-groomed older woman in no distress. HEENT: Oropharynx is clear. No frontal or maxillary tenderness to palpation or percussion. Respiratory: Coarse inspiratory wheezes throughout the lung hernandez anteriorly and posteriorly. No basilar rales. Cardiac: S1, S2, regular rate and rhythm. No murmur. no gallop. Abdomen: Soft, nontender, nondistended, no hepatosplenomegaly or mass. Extremities: No edema. Lymph nodes: No palpable submandibular, cervical, supraclavicular or axillary adenopathy bilaterally. Musculoskeletal: No vertebral tenderness to percussion. LABORATORY DATA: WBC 2.8, hemoglobin 12.2, hematocrit 36.3, platelets 319. ANC 1500. Electrolytes normal. Liver functions, renal function normal. CA27.29 57, a slight increase but within the patient's general range over the last 6 months. PA and lateral chest x-ray obtained today and compared to November 2017 showed a 5 mm left upper lobe parenchymal nodule unchanged versus prior study. No evidence of infiltrate or consolidation. IMPRESSION: 1. Oligometastatic ER positive, HER2 negative breast cancer in complete remission for several years on palbociclib, letrozole and denosumab. Now on dose reduced palbociclib due to neutropenia and some appetite disturbance, but Trang reports wanting to use up her existing 125 mg doses. Given today's ANC, it is reasonable but I asked her for a week at least to hold palbociclib as she recovers from whatever this bronchitis is. There is no evidence of bacterial pneumonia on chest x-ray. 2. Return to clinic 4 weeks. At that point will dose with denosumab on a q. 3 month basis. Repeat CBC, CMP, CA27.29. 3. I instructed Trang to contact either myself or Dr. Davies immediately should she develop fevers, worsening cough or shortness of breath. 5. The patient has a repeat PET scheduled for July [address] Bass in [place]. Last mammogram was June 2018. She will be due in June this year. Electronically Signed by Megan David MD 02/06/2019 05:09 P DD: Megan David MD 02/03/2019 01:43 P DT: [email or web address] 02/05/2019 11:30 A CC: MD Raúl Yao MD Julie LaPointe, MD Bryan Rutledge, MD
[2019-03-06 09:24] LABS: HEMATOCRIT 38.2 % (36.0-47.0); HEMOGLOBIN 12.4 g/dl (12.0-15.5); LYMPH % 51.4 % (24.0-44.0); MEAN CORPUSCULAR HEMOGLOBIN 35.5 pg (27.0-33.0); MEAN CORPUSCULAR HGB CONC 32.5 g/dl (32.0-36.5); MEAN CORPUSCULAR VOLUME 109.5 fl (80.0-96.0); NEUTROPHILS # 1.1 10^3/uL (1.8-7.7); NEUTROPHILS % 35.6 % (36.0-66.0); RED BLOOD COUNT 3.49 10^6/uL (4.00-5.40)
[2019-03-06 10:14] LABS: ALBUMIN 4.4 GM/DL (3.5-5.2); CREATININE FOR GFR 1.13 MG/DL (0.60-1.10); GLOMERULAR FILTRATION RATE 50.7 (>39); TOTAL PROTEIN 7.2 GM/DL (6.4-8.3)
[2019-03-07 10:04] VITALS: BP 157/83
--- NOTE | 2019-03-09 12:16 | MEDONC ---
MEDICAL ONCOLOGY FOLLOWUP / TREATMENT VISIT DATE OF SERVICE: 03/07/2019 DIAGNOSIS: 1. Oligometastatic ER positive, HER2/yael negative breast cancer sequentially involving retina and skeleton over many years currently incomplete metabolic response on June 2018 PET. Followed annually with PET under site by Estella Bass MD in [place]. Maintained on AI/CPK 4/6 inhibitor/denosumab as third line endocrine therapy in the metastatic setting. Asymptomatic. 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 Sotelo; chronic slight a right visual decrease following right eye radiation; mild gradual rise in CA 27-29 from 40s to 50s over proximate 2-year period without findings on scans. 2. Chronic low back pain, musculoskeletal/mechanical, followed by [facility] in [place], receives periodic LS spine injections. February 2018 MRI negative for metastatic recurrence. CURRENT THERAPY: palbociclib 100 mg days 1-21 every 28 days. Originally started February 2016 (at 125 mg dose; dose reduction January 2019). letrozole 2.5 mg daily begun April 2016 (switched from fulvestrant due to gluteal injection pain). denosumab 120 mg every 3 months as of March 2019; originally begun 2012 on every 4 week schedule. TREATMENT HISTORY: See 03/17/2018 note. INTERVAL HISTORY: Pat is doing well. She is finally recovering from the cough and congestion she had. She did a course of antibiotics and saw Dr. Davies. Dr. Davies's plan is to do a chest CT if her cough does not fully resolve, but Pat acknowledges overall doing significantly better. She denies any new musculoskeletal pain, new breast lumps, bumps. She did have low magnesium which Dr. Davies was treating also. REVIEW OF SYSTEMS: In addition to pertinent positives and negatives above the patient has chronic visual disturbances noted in the history, no change. No new headache. No new significant new muscular pain. No major unintended weight loss. No new leg cramping or swelling. No shortness of breath. Remainder of 12 system review negative. PHYSICAL EXAMINATION: Weight 72 kg, temperature 97.4, blood pressure 157/83, heart rate 80, respiratory 20, O2 sat 99%. Patient is a tall well-groomed mildly overweight woman in no distress. Respiratory: Clear lungs throughout the lung hernandez. No wheezes today. No rales. No rhonchi. Cardiac: S1-S2, regular rate and rhythm. No murmur. No gallop. Abdomen: Soft, nontender, nondistended, no hepatosplenomegaly or mass. Extremities: No edema. Lymph nodes: No submandibular, cervical, supraclavicular or axillary adenopathy bilaterally. LABORATORY: WBC 3, ANC 1500, hemoglobin 12, hematocrit 38, platelets 217. Electrolytes and liver functions normal. GFR 50. CA 27-29 pending. IMPRESSION: Oligometastatic ER positive, HER2 negative breast cancer in CR for several years on palbociclib/letrozole/denosumab. Palbociclib dose reduced for neutropenia and appetite disturbance. I cautioned Trang to continue on the 100 mg dose given her recent cold and prolonged infection pointing out her neutrophil count and reduced white count over the last few months (she has previously expressed a wish to use up her 125 mg doses before switching but I asked her today to switch over to the 100 mg dose). Clinically well today, resolving bronchitis. PLAN: 1. Denosumab today. 2. Continue palbociclib at 100 mg. 3. Return to clinic in 4 weeks, CBC, stat CMP, CA 27-29, clinical exam. 4. I will followup CA 27-29 with Pat by phone; if significant increase this would prompt restaging with CT chest, abdomen and pelvis with contrast. Electronically Signed by Megan David MD 03/10/2019 07:07 P DD: Megan David MD 03/08/2019 11:32 A DT: [email or web address] 03/09/2019 10:36 A CC: MD Raúl Yao MD Julie LaPointe, MD Bryan Rutledge, MD
--- NOTE | 2019-03-14 12:54 | MEDONCTEEN ---
MEDICAL ONCOLOGY TELEPHONE NOTE DATE OF SERVICE: 03/14/2019 Trang called saying she would rather have a PET scan than CAT scan. She called her doctor in [place], Dr. Bass and plans to move up on the schedule when the PET scan is done. I explained CT and PET are not mutually exclusive. There is a value potentially in getting the CT scan right away. If negative, could proceed to PET. Trang disagrees and would like to do the PET. She is afraid her cancer will not be picked up as has happened in the past. She has a rising tumor marker now in the 70s, significant jump from her baseline of 40-50. I asked her to let us know when she is scheduled for the PET. I encouraged her to have a D-dimer. She agreed to do so. Meanwhile, she is scheduled for monthly interval followup here. Electronically Signed by Megan David MD 03/14/2019 05:52 P DD: Megan David MD 03/14/2019 08:40 A DT: tr 03/14/2019 12:43 P CC: Estella Bass MD
--- NOTE | 2019-04-04 07:13 | MEDONCTEEN ---
MEDICAL ONCOLOGY TELEPHONE NOTE: DATE OF SERVICE: Trang called this week to say she had her head scan with Dr. Bass 03/22/2019. We have already received the result. There is a focal area of left hilar activity as SUV 5. No discrete node or nodule associated with this, bronchial wall calcifications present at that site. Subtle activity was present in this region on multiple prior exams. Pattern favors inflammation rather than neoplasm. No other sites of uptake. Trang reports Dr. Bass wants her to repeat the PET in 6 months and that is her current plan. No intervention at this time. Electronically Signed by Megan David MD 04/19/2019 05:02 P DD: Megan David MD 03/31/2019 03:17 P DT: [email or web address] 04/04/2019 06:57 A CC:
[2019-04-18 09:16] LABS: HEMOGLOBIN 12.4 g/dl (12.0-15.5); LYMPH % 42.7 % (24.0-44.0); MEAN CORPUSCULAR HEMOGLOBIN 35.7 pg (27.0-33.0); MEAN CORPUSCULAR HGB CONC 32.6 g/dl (32.0-36.5); MEAN CORPUSCULAR VOLUME 109.5 fl (80.0-96.0); NEUTROPHILS # 1.7 10^3/uL (1.8-7.7); NEUTROPHILS % 45.9 % (36.0-66.0); RED BLOOD COUNT 3.47 10^6/uL (4.00-5.40); WHITE BLOOD COUNT 3.7 10^3/uL (4.0-10.0)
[2019-04-18 10:48] LABS: ALBUMIN 4.3 GM/DL (3.5-5.2); CREATININE FOR GFR 1.16 MG/DL (0.60-1.10); TOTAL PROTEIN 6.7 GM/DL (6.4-8.3)
[2019-04-19 14:03] VITALS: BP 132/80
--- NOTE | 2019-04-21 14:03 | MEDONC ---
MEDICAL ONCOLOGY FOLLOWUP DATE OF SERVICE 04/19/2019 DIAGNOSES: 1. Oligometastatic ER positive, HER2/yael negative, indolent, sequentially involving retina, skeleton haltingly over many years. Now with suspicious left hilar hypermetabolic node SUV 5 on 03/24/2019, PET original diagnosis stage II disease 1998; 2008 recurrence involving left lower lung; 2012 retinal, lung, and bone progression; SANNA since late 2012 to present. See 03/17/2018 for treatment history. Currently on third line treatment with letrozole / palbociclib / denosumab. 2. Chronic low back pain followed by [facility] in [place]. CURRENT THERAPY: Palbociclib 100 mg days 1 through 21 q. 28 days (original palbociclib started at 125 mg February 2018). letrozole 2.5 mg daily begun April 2016 (switched from fulvestrant due to gluteal infection). Denosumab 120 mg q. 3 months (begun monthly in 2012; q. 3 months as of March 2019), next due June 2019. TREATMENT HISTORY: See 03/17/2018 note. INTERVAL HISTORY: Trang is doing well. She just had a birthday and is having a 50th wedding anniversary. Her 03/24/2019 PET scan done in [place] under Dr. Bass showed a left hilar focus of hypermetabolic uptake SUV 4. Dr. Bass and the radiologist felt this was very possibly inflammatory at the site of her prior malignancy occurrence and her recent respiratory infection contributing to inflammation. Dr. Bass proposed a 3 to 6-month interval PET to follow. This imaging was prompted by a rise in CA27.29 from the 50s to the 70s. Today is pending. Trang has no new symptoms. Her respiratory symptoms are resolved. She is busy with an active summer. Denies any new musculoskeletal symptoms, respiratory symptoms, lumps, bumps or rashes. REVIEW OF SYSTEMS: Pertinent positives and negatives as above. Remainder of 12 review negative. PHYSICAL EXAMINATION: Weight 72 kg. Temperature 95, blood pressure 132/80, heart rate 95, respiratory 18, O2 sat 94%. Patient is tall, well-groomed older woman in no distress. Respiratory: Clear lungs to all lung hernandez. No wheezes, rales or rubs. Cardiac: S1, S2 regular rate and rhythm. No murmur nor gallop. Abdomen: Soft, nontender, nondistended. No hepatosplenomegaly or mass. Extremities: No edema. Lymph nodes: No submandibular, cervical, supraclavicular or axillary adenopathy bilaterally. LABORATORY DATA: WBC 3.7, ANC 1700, hemoglobin 12, hematocrit 38, platelets 306, MCV 109. Electrolytes normal. Creatinine 1.16, GFR 50. Remainder of liver functions and renal function normal. CA27.29 pending. IMPRESSION: 69-year-old woman with indolent late recurring ER positive, HER2/yael negative breast cancer involving bones, lung and retina since 2008. SANNA for many years but recently found to have hypermetabolic left hilar focus somewhat suspicious but on watch under her chosen radiology/oncology doctor, Dr. Bass in [place]. No new symptoms. ECOG performance status 0. PLAN: 1. Follow up today's CA27.29. If another significant jump up, I would strongly recommend reimaging with CT chest, abdomen pelvis to further characterize the left hilar site and look for any other sites of disease, though notably 03/24/2019 showed only that left hilar focus. 2. Return to clinic 4 weeks for clinical follow-up, CBC, CMP, CA27.29 3. Next denosumab due in June. Electronically Signed by Megan David MD 04/21/2019 05:27 P DD: Megan David MD 04/19/2019 02:31 P DT: elizabeth 04/21/2019 01:13 P CC: MD Raúl Yao MD Julie LaPointe, MD
[2019-05-18 13:36] LABS: HEMATOCRIT 35.3 % (36.0-47.0); HEMOGLOBIN 11.8 g/dl (12.0-15.5); LYMPH % 40.4 % (24.0-44.0); MEAN CORPUSCULAR HEMOGLOBIN 36.9 pg (27.0-33.0); MEAN CORPUSCULAR HGB CONC 33.4 g/dl (32.0-36.5); MEAN CORPUSCULAR VOLUME 110.3 fl (80.0-96.0); NEUTROPHILS # 1.7 10^3/uL (1.8-7.7); NEUTROPHILS % 49.9 % (36.0-66.0); RED BLOOD COUNT 3.2 10^6/uL (4.00-5.40); WHITE BLOOD COUNT 3.4 10^3/uL (4.0-10.0)
[2019-05-18 14:25] LABS: ALBUMIN 4.2 GM/DL (3.5-5.2); BLOOD UREA NITROGEN 14 MG/DL (6-20); CARBON DIOXIDE LEVEL 25 MEQ/L (23-31); CHLORIDE LEVEL 103 MMOL/L (98-107); CREATININE FOR GFR 1.22 MG/DL (0.60-1.10); GLOMERULAR FILTRATION RATE 46.3 (>39); GLUCOSE, FASTING 232 MG/DL (70-105); SODIUM LEVEL 138 MMOL/L (135-145); TOTAL PROTEIN 6.3 GM/DL (6.4-8.3)
[2019-05-19 09:59] VITALS: BP 112/72
--- NOTE | 2019-05-22 14:03 | MEDONC ---
MEDICAL ONCOLOGY FOLLOWUP DATE OF SERVICE: 05/18/2019 DIAGNOSES: 1. 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 Original diagnosis of stage II disease in 1998; 2008 recurrence involving left lower lung; 2012 retinal lung and bone progression; SANNA since late 2012 to March 2019 unclear if left hilar focus is inflammation or metastasis. See 03/17/2018 note for treatment history. Currently on third line treatment with letrozole/palbociclib/denosumab. 2. Chronic low back pain followed by [facility] in [place]. CURRENT THERAPY: Palbociclib 100 mg days 1-21 q. 28 days (originally begun February 2018). Letrozole 2.5 mg daily begun April 2016 (switched from fulvestrant due to gluteal infection). Denosumab 120 mg q. 3 months (monthly begun in 2012; q. 3 months as of March 2019) next due 05/30/2019. TREATMENT HISTORY: See 03/17/2018 note. INTERVAL HISTORY: Trang overall is doing well. She has had been having some right knee pain and x-rays will be done. She has no change in her back pain. It is on and off. We are scheduling her for her 3 months of denosumab 05/30/2019. She is scheduled for followup with Dr. Bass in [place] and for her PET in September 2019. REVIEW OF SYSTEMS: In addition to pertinent positives and negatives as noted above, Trang denies any new headache, visual disturbance, any new hearing problem, has some chronic mild hearing loss age-related. No new chest pain, shortness of breath, palpitations, back pain, nausea, vomiting, unintended weight loss, change in appetite, bowel or bladder changes. No new leg for cramping or swelling. Remainder of 12 system review negative. PHYSICAL EXAMINATION: Vital signs reviewed, normal, stable. Respiratory: Clear lungs to auscultation throughout the lung hernandez. No wheezes or rales. Cardiac: S1, S2. Regular rate and rhythm. 1/6 systolic murmur. Abdomen: Soft, nontender, nondistended. No hepatosplenomegaly or mass. Extremities: No edema. Lymphs nodes: No palpable submandibular, cervical, supraclavicular or axillary adenopathy bilaterally. LABS: WBC 3.4, ANC 1700, hemoglobin 12, hematocrit 35, platelets 332, MCV 110. Electrolytes normal. BUN 14, creatinine 1.22, GFR 46, glucose 232, albumin 4.2. CA 27.29 pending, most recent 69. IMPRESSION: Oligometastatic late recurring ER positive, HER2/yael negative breast cancer since 2009 on third line therapy with letrozole/palbociclib/denosumab. A left hilar hypermetabolic focus is on watch, the only hypermetabolic site on PET. CA 27.29 ranges between 40 and 60, even as high as March, most recent 70 suggesting an upward trend. ECOG performance status 0. New frequently elevated glucose in a patient without diabetes diagnosis. 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 PLAN: 1. Followup today's CA27.29. If a significant uptick, I will call Trang and recommend the PET be done earlier. 2. Continue current therapy. 3. Denosumab 05/30/2019. 4. Next followup visit June 27 with CBC, CMP, CA 27.29, clinical exam. Electronically Signed by Megan David MD 05/23/2019 01:59 P DD: Megan David MD 05/19/2019 10:32 A DT: tr 05/22/2019 01:23 P CC: MD Raúl Yao MD Julie LaPointe, MD
[2019-05-29 09:34] LABS: ALBUMIN 4.4 GM/DL (3.5-5.2); BLOOD UREA NITROGEN 11 MG/DL (6-20); CARBON DIOXIDE LEVEL 28 MEQ/L (23-31); CHLORIDE LEVEL 103 MMOL/L (98-107); CREATININE FOR GFR 0.97 MG/DL (0.60-1.10); GLOMERULAR FILTRATION RATE > 60.0 (>39); GLUCOSE, FASTING 157 MG/DL (70-105); SODIUM LEVEL 139 MMOL/L (135-145); TOTAL PROTEIN 6.9 GM/DL (6.4-8.3)
[2019-05-30 08:33] VITALS: BP 116/69
[2019-06-26 08:39] LABS: HEMATOCRIT 37.6 % (36.0-47.0); HEMOGLOBIN 12.5 g/dl (12.0-15.5); LYMPH % 46.3 % (24.0-44.0); MEAN CORPUSCULAR HGB CONC 33.2 g/dl (32.0-36.5); MEAN CORPUSCULAR VOLUME 111.3 fl (80.0-96.0); NEUTROPHILS # 1.2 10^3/uL (1.8-7.7); NEUTROPHILS % 42.1 % (36.0-66.0); RED BLOOD COUNT 3.38 10^6/uL (4.00-5.40); WHITE BLOOD COUNT 2.8 10^3/uL (4.0-10.0)
[2019-06-26 09:41] LABS: ALBUMIN 4.3 GM/DL (3.5-5.2); BLOOD UREA NITROGEN 15 MG/DL (6-20); CARBON DIOXIDE LEVEL 27 MEQ/L (23-31); CHLORIDE LEVEL 106 MMOL/L (98-107); CREATININE FOR GFR 0.92 MG/DL (0.60-1.10); GLOMERULAR FILTRATION RATE > 60.0 (>39); GLUCOSE, FASTING 219 MG/DL (70-105); SODIUM LEVEL 142 MMOL/L (135-145); TOTAL PROTEIN 6.5 GM/DL (6.4-8.3)
[2019-06-27 08:57] VITALS: BP 115/76
--- NOTE | 2019-07-03 07:42 | MEDONC ---
MEDICAL ONCOLOGY FOLLOWUP DATE OF SERVICE: 06/27/2019 DIAGNOSIS: 1. Oligometastatic ER positive/HER2/yael negative breast cancer with indolent recurrence sequentially involving retina, skeleton over many years, now with suspicious left hilar hypermetabolic node on 03/2019 PET with SUV 5, being actively followed in [place] at patient's preferred site of imaging and biopsy. Current plan was for repeat PET in October with followup with the patient's [place] oncologist, Dr. Estella Bass MD. 2. Stage II, ER positive HER2/yael negative breast cancer 1998. 2008 recurrence involving left lung, 2012 retinal recurrence also with bone progression, and March 2019 left hilar hypermetabolic focus on surveillance PET. CURRENT THERAPY: Palbociclib 100 mg days 1 through 21 q. 28 days. Begun February 2018. Letrozole 2.5 mg daily begun April 2016 (switched from Fulvestrant due to gluteal injection site pain). Denosumab q. 3 months (begun monthly 2012; transition to q. 3 months March 2019; next due August 2019. PRIOR THERAPY: Please see 03/17/2018 note. INTERVAL HISTORY: Trang is here for routine followup. She reports she is really feeling absolutely fine. She continues to follow with Dr. Sotelo for some ocular issues, says these are under control. No evidence of cancer recurrence. 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 REVIEW OF SYSTEMS: In addition to pertinent positives and negatives above, CONSTITUTIONAL: No fever, chills, sweats, fatigue, or weight loss. HEENT: No oral discomfort or mouth or lip ulcers. Hearing normal in both ears. RESPIRATORY: Denies cough, dyspnea, hemoptysis, pleurisy. CARDIOVASCULAR: Denies chest pain, palpitations. BREASTS: Denies breast lumps or nipple discharge. MUSCULOSKELETAL: Denies, joint swelling, pain, or erythema; occasional waxing and waning hip and joint pain - nothing new, occasional back pain - not new. GENITOURINARY: No history of urinary frequency, burning, hematuria, or pain. Denies vaginal discharge. GASTROINTESTINAL: No nausea, vomiting, constipation, diarrhea, dysphagia, bleeding, or anorexia. SKIN: Denies rash, ecchymosis, petechiae, jaundice. NEUROLOGICAL: No headache, visual difficulty, motor weakness, sensory deficits. No paresthesias. EXTREMITIES: No extremity edema. PHYSICAL EXAMINATION: Weight 71 kg, temperature 96.9, blood pressure 115/76, heart rate 89, respiratory 18, O2 sat 96%. The patient is a tall, well-groomed, normal weight woman in no distress. RESPIRATORY: Clear lungs to auscultation bilaterally anteriorly and posteriorly. No wheezes or rales. CARDIAC: S1-S2, regular rate and rhythm. No murmur. No gallop. ABDOMEN: Soft, nontender, nondistended. No hepatosplenomegaly or mass. EXTREMITIES: No edema. LYMPH NODES: No palpable submandibular, cervical, supraclavicular or axillary adenopathy bilaterally. IMAGING STUDIES: 06/19/2019 bilateral screening mammogram at [facility] BI-RADS category II benign. Labs from 06/26/2019 - WBC 2.8, ANC 1200, hemoglobin 12.5, hematocrit 37, platelets 224. MCV 111. Electrolytes, renal function and liver function normal. Glucose 219. CA27.29 was 61 consistent with the patient's recent plateau over the last 2 years. IMPRESSION: Oligometastatic, indolent, ER positive, NV positive, HER2/yael negative breast cancer with skeletal involvement. Most recently SANNA on PET until 03/13/2019 emergence of hypermetabolic hilar node SUV 5, being watched, possibly inflammatory. The plan is for repeat PET under the patient's [place] medical oncologist in early 201920. Grade 2 neutropenia on dose reduced palbociclib, stable, tolerating treatment well. No increase in infection symptoms. No evidence of cancer recurrence on today's clinical exam. Stable tumor marker. ECOG performance status 0. PLAN: 1. 1-month interval return. 2. Continue letrozole and palbociclib. Electronically Signed by Megan David MD 07/05/2019 06:12 P DD: Megan David MD 06/30/2019 05:46 P DT: james 07/03/2019 07:08 A CC: MD Raúl Yao MD Julie LaPointe, MD
[2019-07-31 09:21] LABS: BASO # 0.1 10^3/uL (0.0-0.2); BASO % 1.3 % (0.0-1.0); EOS # 0.1 10^3/uL (0.0-0.5); EOS % 1.3 % (0.0-3.0); HEMATOCRIT 34.9 % (36.0-47.0); LYMPH # 1.6 10^3/uL (1.5-5.0); LYMPH % 41.7 % (24.0-44.0); MEAN CORPUSCULAR HEMOGLOBIN 36.7 pg (27.0-33.0); MEAN CORPUSCULAR HGB CONC 34.4 g/dl (32.0-36.5); MEAN CORPUSCULAR VOLUME 106.7 fl (80.0-96.0); MONO # 0.7 10^3/uL (0.0-0.8); MONO % 16.9 % (0.0-5.0); NEUTROPHILS # 1.5 10^3/uL (1.5-8.5); NEUTROPHILS % 38.5 % (36.0-66.0); PLATELET COUNT, AUTOMATED 184 10^3/uL (150-450); RED BLOOD COUNT 3.27 10^6/uL (4.00-5.40); WHITE BLOOD COUNT 3.8 10^3/uL (4.0-10.0)
[2019-07-31 09:45] LABS: ALBUMIN 3.8 GM/DL (3.2-5.2); ALT/SGPT 25 U/L (12-78); BILIRUBIN,TOTAL 0.6 MG/DL (0.2-1.0); BLOOD UREA NITROGEN 15 MG/DL (7-18); CALCIUM LEVEL 9.6 MG/DL (8.8-10.2); CARBON DIOXIDE LEVEL 28 MEQ/L (21-32); CHLORIDE LEVEL 103 MEQ/L (98-107); CREATININE FOR GFR 0.92 MG/DL (0.55-1.30); GLOMERULAR FILTRATION RATE > 60.0 (>39); GLUCOSE, FASTING 290 MG/DL (70-100); POTASSIUM SERUM 4.2 MEQ/L (3.5-5.1); SODIUM LEVEL 136 MEQ/L (136-145); TOTAL PROTEIN 7.3 GM/DL (6.4-8.2)
[2019-08-01 13:17] VITALS: BP 123/78
--- NOTE | 2019-08-03 12:36 | MEDONC ---
MEDICAL ONCOLOGY FOLLOWUP DATE OF SERVICE: 08/01/2019 DIAGNOSES: 1. Oligometastatic ER positive/HER2/yael negative breast cancer with indolent recurrent sequentially involving retina, skeleton over many years now with suspicious left hilar hypermetabolic node on 03/2019 PET with SUV 5; being actively followed in [place], the patient preferred site of imaging and biopsy. Plan is for next PET October 2018 with Estella Bass MD, her [place] oncologist 2. Stage II ER positive/HER2/yael negative breast cancer 1998. 2008 recurrence involving left lung, 2012 retinal recurrence and bone recurrence, March 2019 left hilar hypermetabolic focus on surveillance PET, prior to that SANNA for many years. CURRENT THERAPY: Palbociclib 100 mg days 1-21 q. 28 days begun February 2019. Letrozole 2.5 mg daily begun April 2016 (switched from fulvestrant due to gluteal injection site pain). Denosumab q. 3 months (begun monthly 2012; transition to q. 3 months March 2019). Next due August 2019. PRIOR THERAPY: Please see 03/17/2018 note. INTERVAL HISTORY: Trang is doing well. She continues to follow with [facility] and get periodic joint injections. She has absolutely no new musculoskeletal pain. No new skin findings. No new lumps or bumps and feels just fine. She her plan a quiet Thanksgiving. REVIEW OF SYSTEMS: CONSTITUTIONAL: No fever, chills, sweats, fatigue, or weight loss. HEENT: No oral discomfort or mouth or lip ulcers. Hearing normal in both ears. RESPIRATORY: Denies cough, dyspnea, hemoptysis, pleurisy. CARDIOVASCULAR: Denies chest pain, palpitations. BREASTS: Denies breast lumps or nipple discharge. MUSCULOSKELETAL: Denies joint swelling, pain, or erythema; some low back and occasional knee pain without swelling with as needed joint injections. No change in symptoms. No new skeletal pain. GENITOURINARY: No history of urinary frequency, burning, hematuria, or pain. Denies vaginal discharge. GASTROINTESTINAL: No nausea, vomiting, constipation, diarrhea, dysphagia, bleeding, or anorexia. SKIN: Denies rash, ecchymosis, petechiae, jaundice. NEUROLOGICAL: No headache, new visual difficulty, motor weakness, sensory deficits. No paresthesias. EXTREMITIES: No extremity edema. PHYSICAL EXAMINATION: Weight 70.6 kg. Temperature 97. Blood pressure 123/70. Heart rate 88. Respiratory 18. O2 sat 97% The patient is a well-groomed, tall woman, in no to no distress. HEENT: No scleral icterus. Oropharynx clear. Moist pink mucous membranes. RESPIRATORY: Clear lungs to auscultation bilaterally anteriorly and posteriorly. No wheezes or rales. CARDIAC: S1, S2, occasional ectopy. 1/6 systolic murmur. Regular rate and rhythm. ABDOMEN: Soft, nontender, nondistended. No hepatosplenomegaly or mass. EXTREMITIES: No edema or asymmetry. MUSCULOSKELETAL: No vertebral tenderness to percussion. LYMPH NODES: No submandibular, cervical, supraclavicular or axillary adenopathy bilaterally. PSYCHIATRIC: The patient is alert and oriented to person, place and time. Speech is fluent. Affect appropriate. SKIN: No ecchymoses, petechiae or other rash. LABORATORY DATA: Labs from 07/31/2019, WBC 3.8, ANC 1500, hemoglobin 12, hematocrit 35, platelets 184, MCV 106. Electrolytes normal. Liver functions, renal function normal. Nonfasting glucose 290, alkaline phosphatase 75. CA 27.29 pending. CA 27.29 from 06/26/2019 61, within the patient's range. IMPRESSION: Oligometastatic, indolent ER positive/MT positive/HER2/yael negative breast cancer with skeletal involvement, possible lymph node involvement. PET 03/13/2019 showed hypermetabolic hilar node, SUV 6, being followed possibly inflammatory in the setting of cold/pneumonia. Plan is to repeat PET in October 2019 under the patient's [place] oncologist. Grade 2 neutropenia on dose reduced palbociclib stable, tolerating treatment well. ECOG performance status 0. PLAN: 1. Continue palbociclib and letrozole. 2. 1 month interval return with denosumab that day CBC, stat CMP, CA 27.29, and CBC. Electronically Signed by Megan David MD 08/07/2019 03:50 P DD: Megan David MD 08/01/2019 04:16 P DT: tr 08/03/2019 11:40 A CC: MD Raúl Yao MD Julie LaPointe, MD
[2019-09-11 10:30] VITALS: BP 126/71
--- NOTE | 2019-09-12 09:23 | MEDONC ---
MEDICAL ONCOLOGY FOLLOWUP DATE OF SERVICE: 09/11/2019 DIAGNOSES: 1. Oligometastatic ER positive/HER2/yael negative breast cancer with indolent recurrence, sequentially involving retina, skeleton over many years. Most recent PET 03/2019 with suspicious left hilar hypermetabolic node being followed closely by her primary oncologist, Estella Bass, in [place]. Plan is for next PET October of 2018. 2. Personal history stage II ER positive/HER2/yael negative breast cancer 1998. 2008 recurrence involving left lung, 2012 retinal recurrence, bone recurrence, March 2019 left hilar hypermetabolic focus on surveillance PET, prior to that, SANNA for many years. 3. New unintended weight loss and visual abnormalities involving unaffected, left eye with negative workup in ophthalmology. CURRENT THERAPY: Palbociclib 100 mg, begun February 2019. Letrozole 2.5 mg daily, begun April 2016 (switched from fulvestrant for gluteal injection site pain). Denosumab q. 3 months (originally begun 2012; q. 3 months as of March 2019 next due November 2019). PRIOR THERAPY: Please see 03/17/2018 note. INTERVAL HISTORY: Trang has a number of complaints today. She is very concerned about the weight loss, which totals about 10 kg over 1 year. She has also been diagnosed with possible prediabetes though her hemoglobin A1c was reportedly 9. She is on metformin and Glucotrol. She insists her diagnosis is not yet diabetes, though I pointed out she has had serially elevated nonfasting glucoses for at least a year. It also may be that hyperglycemia and glucosuria is leading to diuresis and weight loss in that way. She denies any other new constitutional symptoms but does have visual problems now complaining of photophobia involving her left eye. She saw Dr. Sotelo. He has not been able to find any particular abnormalities. She asks about brain imaging, which I agree is reasonable, including orbital and brain MRI. Trang does not want to do this locally as had been misread on scans here and insists she would like these elsewhere and names [facility]. REVIEW OF SYSTEMS: In addition to pertinent positives and negatives above, the patient denies new sweats, fevers, headache, appetite change, shortness of breath, cough, abdominal or back pain, leg swelling or cramping, rash, joint stiffness or new breast or underarm lumps or bumps. Remainder of 12 system review negative. PHYSICAL EXAMINATION: Weight 67.5 kg. Temperature 97.8, blood pressure 126/71, heart rate 109, respiratory 20, O2 sat 98%. HEENT: No scleral icterus. Pupils are equal and reactive, right chronic mild lid droop not new, dates from right ocular radiation. No other facial asymmetry. Oropharynx is clear. Moist mucous membranes. Dentition in good repair. Respiratory: Coarse inspiratory wheeze localizing to the left mid lung hernandez with good air movement in the right lung duplicated on anterior and posterior exam. Cardiac: S1, S2, regular rate and rhythm. No murmur. No gallop. Abdomen: Soft, nontender, nondistended. No hepatosplenomegaly or mass. Extremities: No edema. Lymph Nodes: No palpable submandibular, cervical, supraclavicular or axillary adenopathy bilaterally. Musculoskeletal: No vertebral tenderness to percussion. Skin: No ecchymoses, petechiae or rash. Psych: The patient is alert and oriented to person, place and time. Speech is fluent. Affect appropriate. Neurologic: Cranial nerves II-XII grossly intact. Muscle strength 5/5 grossly intact. Sensation grossly intact. LABORATORY DATA: 08/27/2019: WBC 3.9, hemoglobin 12, hematocrit 36, platelets 206, MCV 108. Electrolytes unremarkable. Glucose 186. CA 27.29 65. In general, this is consistent with the last 5 months of tumor marker though a 10-point increase versus the prior 6 months and other years. IMPRESSION: Oligometastatic ER positive, HER2/yael negative breast cancer with indolent low volume recurrence involving retina, bone, and lung over many years currently on Ibrance, fulvestrant and denosumab now with new ocular symptoms involving left eye without findings on exam, coarse left lung inspiratory wheeze reproducible, new hyperglycemia requiring treatment with diabetic medications; new diagnosis of type 2 diabetes versus secondary hyperglycemia. PLAN: 1. Trang was persuaded to have chest, abdomen, and pelvis CT with contrast working up the new lung findings and enabling us to quickly look at her images together so that she can feel reassured of findings. Will order these for as soon as possible here. 2. She insists on brain imaging to be done at [facility]. I am ordering both orbital and brain MRI with and without contrast to rule out either orbit and/or intracranial parenchymal recurrence of disease based on new ocular photophobia involving left eye. 3. She would like to pursue her PET scan with Dr. Bass in October as scheduled. 4. Return to clinic following the above. 5. Meanwhile continue current therapy. Next due for denosumab in November. TIME STATEMENT: 25 minutes [id number] with the patient; more than 50% involving counseling, answering her questions, reviewing the rationale for imaging now rather than waiting another six or more weeks given concern for possible intracranial metastases and fairly significantly abnormal lung exam. Electronically Signed by Megan David MD 09/12/2019 12:09 P DD: Megan David MD 09/11/2019 04:48 P DT: tr 09/12/2019 08:51 A CC: MD Raúl Yao MD Julie LaPointe, MD
[2019-09-15 09:08] VITALS: BP 125/76
--- NOTE | 2019-09-16 10:26 | MEDONC ---
MEDICAL ONCOLOGY TELEPHONE NOTE DATE: 09/14/2019 A stat reading of Trang's chest CT shows a small pulmonary embolus in the right lower lobe and right upper lobe segmental branches. No left-sided pulmonary emboli. Picked up on a CT angio, it is unclear if these are new or old. I called her to let her know about this and described the need for anticoagulation. She will be in first thing in the morning. We will obtain D-dimers, I will discuss anticoagulation and prescribe it at that point. She has not been on a recent trip. She has no personal history of pulmonary embolus. I explained that this is a fairly urgent problem for which anticoagulation is needed. She understood and agreed to come in. Electronically Signed by Megan David MD 09/19/2019 07:58 P DD: Megan David MD 09/14/2019 07:31 P DT: elizabeth 09/16/2019 10:24 A CC:
--- NOTE | 2019-09-18 13:48 | MEDONC ---
MEDICAL ONCOLOGY FOLLOWUP DATE OF SERVICE: 09/15/2019 DIAGNOSES: 1. Oligometastatic recurrent ER positive/HER2/yael negative breast cancer with indolent recurrence sequentially involving retina, skeleton and lymph nodes over many years. Most recently with a 03/2019 PET showing suspicious left hilar hypermetabolic node after several years SANNA; followed closely in [place] by Estella Bass MD. 2. Recent unintended weight loss, visual abnormalities involving unaffected (left) eye, new diagnosis of diabetes, and now with evidence of pancreatic duct dilatation on abdomen and pelvis CT without pancreatic or other mass, and new finding of right upper and lower lobe segmental pulmonary emboli. CURRENT THERAPY: Palbociclib 100 mg daily, begun February 2019. Letrozole, begun April 2016 (switched from fulvestrant due to gluteal pain). Denosumab q. 3 months, next due November 2019. PRIOR THERAPY: See 03/17/2018 note. INTERVAL HISTORY: Trang is here today after CT chest yesterday showed right-sided pulmonary emboli involving upper and lower lobes small but present. D-dimer today is quite elevated. There is a slight increase in pancreatic duct dilatation without associated pancreatic mass noted on abdomen and pelvis CT and a sliding type hiatal hernia; otherwise no significant findings and no mediastinal adenopathy noted on chest CT and no pulmonary parenchymal lesions. I explained that PE requires anticoagulation. I am dosing Trang at 1.5 mg/kg daily for convenience and recommended that she could be continued on this indefinitely given her metastatic cancer underlying diagnosis. I also raised concern for a possible underlying pancreatic process, possibly neoplasm given her new diabetes, unintended weight loss, abnormal pancreatic duct and now the pulmonary embolism. She and her were understandably taken aback. I recommended evaluation with gastroenterology in [place] with Dr. Leone where if needed US could be done. He will probably start with ERCP. Trang had many questions as did her all of which I answered to the best of my ability. I have withdrawn a CA19-9 today. She was focused on when this would be ready. I tried to caution that it is not a definitive diagnostic test but if significantly elevated would certainly support an investigation of the pancreas. IMPRESSION: 69-year-old woman with oligometastatic ER positive, HER2/yael negative breast cancer over many, many years stable with minimal to no sites of disease on surveillance imaging now with 10 pound weight loss, new DVT, new diabetes, and pancreatic duct dilatation on abdomen and pelvis CT somewhat concerning for possible second primary involving the pancreas or hepatobiliary tree. PLAN: 1. Begin Lovenox 1.5 mg/kg daily (100 mg). 2. Follow up CA 19-9. 3. Referral to Dr. David Leone MD, Gastroenterology, [place], [place] for possible ERCP and/or endoscopic ultrasound working up a possible occult pancreatic malignancy. 4. Trang is scheduled for routine return in about a month, will keep that appointment and I will call her with results of CA 19-9. She was in agreement with this plan. TIME STATEMENT: 40 minutes [id number] with the patient; more than 50% answering questions, explaining the new findings, need for Lovenox, how it is delivered, dosing schedule, and of course reviewing the possible issue of an occult second primary cancer as outlined above. Electronically Signed by Megan David MD 09/19/2019 07:58 P DD: Megan David MD 09/15/2019 04:51 P DT: tr 09/18/2019 01:32 P CC: MD Raúl Yao MD Julie LaPointe, MD
[2019-09-26 08:25] VITALS: BP 116/73
--- NOTE | 2019-09-29 10:35 | MEDONC ---
MEDICAL ONCOLOGY BRIEF FOLLOWUP DATE OF SERVICE: 09/26/2019 DIAGNOSES: 1. Oligometastatic recurrent ER positive/HER2/yael negative breast cancer with indolent recurrence sequentially involving retina, skeleton and lymph nodes over many years. Most recently with a 03/2019 PET showing suspicious left hilar hypermetabolic node after several years SAN[facility]; followed closely in [place] by Estella Bass MD. 2. Recent unintended weight loss, visual abnormalities involving unaffected (left) eye, new diagnosis of diabetes, and now with evidence of pancreatic duct dilatation on abdomen and pelvis CT without pancreatic or other mass, and new finding of right upper and lower lobe segmental pulmonary emboli. CURRENT THERAPY: Palbociclib 100 mg daily, begun February 2019. Letrozole, begun April 2016 (switched from fulvestrant due to gluteal pain). Denosumab q. 3 months, next due November 2019. PRIOR THERAPY: See 03/17/2018 note. INTERVAL HISTORY: Trang is here for brief followup. She saw Dr. Leone, an MRI abdomen is planned, he feels there is a very low suspicion for pancreatic mass and she is reassured. Brain MRI with and without contrast 09/18/2019 showed small vessel ischemic change. No intracranial mass or intraorbital lesion. She apparently in consultation with the radiologist cancelled the orbit images based on their opinion that ophthalmology has ruled this out. She is content with current workup. She is on her way to [place]. IMPRESSION: 69-year-old woman with oligometastatic ER positive, HER2/yael negative breast cancer over many, many years stable with minimal to no sites of disease on surveillance imaging now with 10 pound weight loss, new DVT, new diabetes, and pancreatic duct dilatation on abdomen and pelvis CT somewhat concerning for possible second primary involving the pancreas or hepatobiliary tree. PLAN: 1. Return to clinic in December, denosumab, labs, clinical exam that day. 2. Continue Lovenox. We briefly discussed transitioning to oral anticoagulant but Trang decided to stay with Lovenox for now. TIME STATEMENT: 10 minutes [id number] with the patient more than 50% involved counseling around the issues above. Electronically Signed by Megan David MD 10/03/2019 08:08 P DD: Megan David MD 09/28/2019 07:45 P DT: becca 09/29/2019 10:23 A CC: Said MD Raúl Sibley MD Julie LaPointe, MD John Sun, DO
[2019-12-04 08:31] LABS: BASO # 0.1 10^3/uL (0.0-0.2); BASO % 1.5 % (0.0-1.0); EOS # 0.1 10^3/uL (0.0-0.5); EOS % 2.2 % (0.0-3.0); HEMATOCRIT 33.7 % (36.0-47.0); HEMOGLOBIN 11.4 g/dl (12.0-15.5); LYMPH # 1.4 10^3/uL (1.5-5.0); MEAN CORPUSCULAR HEMOGLOBIN 37.1 pg (27.0-33.0); MEAN CORPUSCULAR HGB CONC 33.8 g/dl (32.0-36.5); MEAN CORPUSCULAR VOLUME 109.8 fl (80.0-96.0); MONO # 0.4 10^3/uL (0.0-0.8); MONO % 8.4 % (0.0-5.0); NEUTROPHILS # 2.6 10^3/uL (1.5-8.5); NEUTROPHILS % 56.5 % (36.0-66.0); PLATELET COUNT, AUTOMATED 405 10^3/uL (150-450); RED BLOOD COUNT 3.07 10^6/uL (4.00-5.40); WHITE BLOOD COUNT 4.6 10^3/uL (4.0-10.0)
[2019-12-04 08:57] LABS: ALBUMIN 3.4 GM/DL (3.2-5.2); BILIRUBIN,TOTAL 0.6 MG/DL (0.2-1.0); CALCIUM LEVEL 8.7 MG/DL (8.8-10.2); CREATININE FOR GFR 1.02 MG/DL (0.55-1.30); GLOMERULAR FILTRATION RATE 56.9 (>39); POTASSIUM SERUM 4.2 MEQ/L (3.5-5.1); TOTAL PROTEIN 7.2 GM/DL (6.4-8.2)
--- NOTE | 2019-12-08 10:53 | MEDONC ---
DATE OF SERVICE: 12/08/2019 Medical oncology telehealth/telephone visit for established patient. This followup visit conducted by telehealth due to COVID-19 crisis. DIAGNOSES: 1. Oligometastatic recurrent ER positive/HER2/yael negative breast cancer with indolent recurrence sequentially involving retina, skeleton and lymph nodes over many years. Most recently with a 03/2019 PET showing suspicious left hilar hypermetabolic node after several years [facility]NA; followed closely in [place] by Estella Bass MD. 2. Recent unintended weight loss, visual abnormalities involving unaffected (left) eye, new diagnosis of diabetes, and now with evidence of pancreatic duct dilatation on abdomen and pelvis CT without pancreatic or other mass, and new finding of right upper and lower lobe segmental pulmonary emboli. CURRENT THERAPY: Palbociclib 100 mg daily, begun February 2019. Letrozole, begun April 2016 (switched from fulvestrant due to gluteal pain). Denosumab q. 3 months, next due November 2019. PRIOR THERAPY: See 03/17/2018 note. SURVEILLANCE: Head CT 10/31/2019 in [place] [facility]NA. Two foci of ambiguous uptake in stomach lesser curvature, and left hilum, left hilar site stable SUV 5 considered benign. EGD, 11/20/2019, [place], [place] negative for evidence of abnormal findings. CA 27.29 12/04/2019 55.3, stable. INTERVAL HISTORY: Trang is due today for denosumab. Her labs from 12/04/2019 look good. Her CA 27.29 is stable. She has now been diagnosed formally with diabetes, is on metformin and glipizide, struggling with her sugars but the hemoglobin A1c has come down slightly. There are no changes in her chronic right eye symptoms. She did have a GI bug on Wednesday with nausea and vomiting, this resolved on its own. REVIEW OF SYSTEMS: CONSTITUTIONAL: No fever, chills, sweats, fatigue, or weight loss. HEENT: No oral discomfort or mouth or lip ulcers. Hearing normal in both ears. Chronic right eye vision impairment following radiation, chronic left eye tearing under ophthalmology care. RESPIRATORY: Denies cough, dyspnea, hemoptysis, pleurisy. CARDIOVASCULAR: Denies chest pain, palpitations. BREASTS: Denies breast lumps or nipple discharge. MUSCULOSKELETAL: Denies skeletal pain, joint swelling, pain, or erythema. GENITOURINARY: No history of urinary frequency, burning, hematuria, or pain. Denies vaginal discharge. GASTROINTESTINAL: No nausea, vomiting, constipation, diarrhea, dysphagia, bleeding, or anorexia. A brief 24 hour GI "bug" a week ago Wednesday lasting about a day with nausea and vomiting. No residual symptoms. SKIN: Denies rash, ecchymosis, petechiae, jaundice. NEUROLOGICAL: No headache, visual difficulty, motor weakness, sensory deficits. No paresthesias. EXTREMITIES: No extremity edema. PHYSICAL EXAMINATION: Physical exam deferred due COVID-19 and telehealth visit. The patient is alert, oriented and fluent speaking on the phone. Denies any active distress. LABORATORY DATA: Labs from 12/04/2019: WBC 4.6, hemoglobin 11.4, hematocrit 33.7, platelets 405. MCV 109. Electrolytes normal. Renal function normal. Glucose 179. Calcium 8.7. Liver functions and albumin normal. CA 27.29 55. IMPRESSION: 69-year-old woman with history of indolent oligometastatic ER positive/HER2/yael negative breast cancer currently SANNA with a stable SUV 5 focus in the left hilum thought to be consistent with some benign changes and followed closely by Estella Bass MD in [place]. Stable chronic right eye vision difficulties following the radiation for ocular metastatic treatment. SANNA overall by current PET and tumor marker; review of systems today unremarkable. PLAN: 1. Denosumab today. 2. At the patient's behalf monthly CA27.29. 3. 3 month interval labs including CBC, CMP, CA 27.29; denosumab and tele visit 1 week later. Imaging on an as-needed basis based on symptoms. The patient consented to tele visit today. She was accompanied in the room by her , Shashi. He was not actively listening on the phone. Duration of visit 12 minutes. Electronically Signed by Megan David MD 12/08/2019 03:06 P DD: Megan David MD 12/08/2019 09:21 A DT: tr 12/08/2019 10:02 A CC: MD Raúl Yao MD Julie LaPointe, MD
--- NOTE | 2020-02-20 17:49 | MEDONC ---
MEDICAL ONCOLOGY TELEHEALTH/TELEPHONE VISIT DATE OF SERVICE: 02/14/2020 This is a telephonic visit which was performed without the use of video technology. The patient was informed of the risks including security breach, technological failure, inability to perform a physical exam which could delay or prevent an accurate diagnosis, and potential complications from treatment decisions rendered over a telephonic platform. The patient understands and consented to the use of a telephonic visit/telephone call. TIME STATEMENT: 13 minute duration of call. Patient was alone at her home, I was in the office. DIAGNOSES: 1. Oligometastatic recurrent ER positive/HER2/yael negative breast cancer with indolent recurrence sequentially involving retina, skeleton and lymph nodes over many years. Most recently with a 03/2019 PET showing suspicious left hilar hypermetabolic node after several years SANNA; followed closely in [place] by Estella Bass MD. New, biopsy proven, pancreatic head breast cancer metastatic focus January/2020. 2. Recent unintended weight loss, visual abnormalities involving unaffected (left) eye, new diagnosis of diabetes, and now with evidence of pancreatic duct dilatation on abdomen and pelvis CT without pancreatic or other mass, and new finding of right upper and lower lobe segmental pulmonary emboli. CURRENT THERAPY: Palbociclib 100 mg daily, begun February 2019. Letrozole, begun April 2016 (switched from fulvestrant due to gluteal pain). Denosumab q. 3 months, next due November 2019. TREATMENT HISTORY: Right breast stage IIA, T2N0, ER/WA positive, HER2 negative invasive ductal carcinoma in 1998 treated with AC times four cycles, radiation, tamoxifen times 1 year, letrozole times 4 years. 2008 recurrence involving left lower lobe parenchymal and hilar metastases. Exemestane 2008 - 2012. 2012, right choroidal (retinal) recurrence ; lung and bone progression. -Right orbit radiation. Faslodex/denosumab 2012 through September 2015. September 2015 rising CA 15-3 /CA 27-29. Palbociclib added to Faslodex/denosumab. Oct-November 2016, right buttock and radicular leg pain after Faslodex injection. LS spine MRI and PET negative for hypermetabolic uptake. PET with non-FDG avid sclerotic lesions L iliac wing, R L3 pedicle, and L inferior pubic ramus. February-March 2017 Recurrent R>L buttock pain after Faslodex, severe. INTERVAL HISTORY: This is followup after Trang was recently diagnosed with pancreas metastatic breast cancer after she was referred to GI for workup of pancreatic duct dilatation found on CT after unintended 18-pound weight loss and spontaneous pulmonary embolism had occurred raising question of a pancreatic malignancy. PET had been equivocal in October 2019 showing lesser curvature of the stomach, mild hypermetabolic uptake, and left hilar mild hypermetabolic uptake, the latter also previously seen and on watch. Through all this, Trang has had absolutely no symptoms. Dr. Serrano performed endoscopic ultrasound and biopsy, FNA consistent with a breast cancer metastasis, strongly ER, WA positive, HER2 negative, CDX2 negative, CA19-9 and CEA negative. Trang acknowledges being quite taken aback by this finding. She has been completely asymptomatic. Dr. Santiago's recommendation was to hold any pancreatic enzymes given she is asymptomatic, though the weight loss persists. We discussed next steps. I recommended the following: Repeat PET scan to assess whether there is increased uptake in the lesser curvature/pancreas area and/or chest, as well to assess for any other possible sites of disease, and changing to third line treatment with everolimus/exemestane and continue denosumab. I reviewed risks, benefits, side effects of everolimus, including, but not limited to, oral stomatitis, pneumonitis, fatigue, diarrhea, weight loss, cytopenias; I explained the exemestane is a sister drug to letrozole with a nearly identical side effect profile. Trang had an opportunity to ask questions, all of which I answered to her apparent satisfaction. IMPRESSION: 69-year-old woman with history of indolent, oligometastatic ER, WA positive, HER2 negative breast cancer, now with 2 cm head of pancreas mass, positive on biopsy for metastatic breast cancer, strongly ER, WA positive, HER2 negative. Asymptomatic save for unintended weight loss. Equivocal sites of hypermetabolic uptake involving lesser stomach curvature and left hilar area in October. PLAN: 1. Discontinue letrozole and begin exemestane 25 mg daily. 2. Discontinue palbociclib and begin everolimus [address] PET CT to restage, reassess and for progression of hilar and abdominal foci. 4. Continue denosumab q. 3 months. 5. Trang has office visit followup at the end of February. She is aware of my impending departure. We will discuss her results of PET by phone afterward and make any further recommendations needed. Time statement: 13 minutes, telephone call. Electronically Signed by Megan David MD 02/21/2020 05:06 P DD: Megan David MD 02/14/2020 11:49 A DT: erica 02/19/2020 03:55 P CC: MD Walter Yao MD Julie LaPointe, MD John Sun, DO
[2020-03-06 09:39] VITALS: BP 125/71
--- NOTE | 2020-03-11 17:02 | MEDONC ---
MEDICAL ONCOLOGY FOLLOWUP DATE OF SERVICE: 03/06/2020 DIAGNOSIS: Oligometastatic indolent recurrent ER positive/HER2 negative breast cancer, invasive ductal carcinoma originally diagnosed with early stage disease 1998 and recurrence in 2008 now with left hilar hypermetabolic uptake on PET and biopsy proven pancreatic metastasis discovered during workup of unexplained weight loss, new onset diabetes and pancreatic duct dilatation. CA19-9 and CEA are normal; CA27.29 persistently elevated in the 50s range. CURRENT THERAPY: Trang to begin exemestane 25 mg daily, and everolimus 10 mg daily second week of March. Denosumab q. 3 months, next due today. TREATMENT HISTORY: Right breast stage IIA, T2N0, ER/DE positive, HER2 negative invasive ductal carcinoma in 1998 treated with AC times four cycles, radiation, tamoxifen times 1 year, letrozole times 4 years. 2008 recurrence involving left lower lobe parenchymal and hilar metastases. Exemestane 2008 - 2012. 2012, right choroidal (retinal) recurrence ; lung and bone progression. -Right orbit radiation. Faslodex/denosumab 2012 through September 2015. Letrozole April 2016-February 2020. Palbociclib February 2019-February 2020. INTERVAL HISTORY: Trang is here to again discuss her new medications. She has received the everolimus and exemestane. We have discussed this change of therapy twice on the phone. She remains unclear which drug to take when. I carefully reviewed as well as wrote out and spelled the names, both generic and brand, of each of her medications and how they were to be taken. She had called earlier last week asking is it okay for her to take exemestane given she has been on it before, and my reply, given through my nurse, was that it is okay to take again because it is being taken with a second agent in a metastatic setting. It also helps us avoid chemotherapy and maximize endocrine therapy. I reviewed that both drugs are taken daily. The current plan is for her to start next week so that she has a total 1-week interval between her last palbociclib dose and the start of everolimus. If she likes, she can start the exemestane now and stop the letrozole now. And then begin everolimus next week. We went over these, answered questions and answers and having her repeat back to me the instructions. She did seem ultimately to understand. We talked about what may be a little bit of memory issue. She has not had brain imaging in quite awhile. She has a history of orbital metastasis, and it would be reasonable at this juncture, given fairly indolent and insidious progression involving the pancreas, to check for brain involvement. She is agreeable to brain MRI. She continues to deal with high blood sugar; she is on multiple medications for diabetes and apparently this has been a difficult issue. She is losing some weight involuntarily, remains with above normal body mass index (BMI) just above normal at 24. Weight currently 53 kg. She is having no pain. No new visual symptoms. No abdominal discomfort. No nausea, no vomiting. No early satiety, possibly a mild bit of fatigue, she notes. CA27.29 currently 51, in her usual range. Trang had a PET scan 03/05/2020. This shows persistent low level hypermetabolic activity in the left hilus without observable adenopathy or mass. This is persistent through at least 1 year, and no evidence of below the diaphragm hypermetabolic uptake or abnormalities. No skeletal uptake. IMPRESSION: 69-year-old woman with indolent oligo recurrent breast cancer since 2008 involving retina, lung, bone, and now pancreas, biopsy proven, though no observable pancreatic mass. Symptoms seem to involve weight loss, though, on a new more diabetic oriented diet, this weight loss may simply be dietary. Persistent left hilar uptake, borderline SUV with no other significant sites on current PET. Due to finding of pancreatic involvement, which is new for this patient, change of treatment now under way from palbociclib/letrozole to exemestane/everolimus. Some memory issues have clouded instructions around the new drugs. PLAN: 1. Denosumab today. 2. Brain MRI with and without contrast, rule out intracranial metastases or lymphangitic spread. 3. I will call Trang with these results. 4. Otherwise begin exemestane either now or next week and begin everolimus next week once 1 week has elapsed from last palbociclib. Instructions given to discontinue letrozole and palbociclib. 5. Return to clinic 4 weeks, labs a few days prior. At that point, Trang will be meeting her new oncologist. Electronically Signed by Megan David MD 03/12/2020 04:30 P DD: Megan David MD 03/06/2020 05:04 P DT: erica 03/11/2020 04:41 P CC: MD Walter Yao MD Julie LaPointe, MD
[2020-04-29 14:24] VITALS: BP 126/78
--- NOTE | 2020-04-29 17:11 | MEDONCPDOC ---
Medical Oncology Office Note Date of Service: Apr 29, 2020 Diagnosis/Treatment History DIAGNOSES: Metastatic ER positive/HER2/yael negative breast cancer with indolent recurrence sequentially involving retina, skeleton and lymph nodes over many years. Most recently with a 03/2019 PET showing suspicious left hilar hypermetabolic node after several years [facility]; followed closely in [place] by Estella Bass MD. New, biopsy proven, pancreatic head breast cancer metastatic focus January/2020. CURRENT THERAPY: Exemestane 25 mg daily, and everolimus 10 mg daily second week of March 2020. Denosumab q. 3 months. TREATMENT HISTORY: Right breast stage IIA, T2N0, ER/MI positive, HER2 negative invasive ductal carcinoma in 1998 treated with AC times four cycles, radiation, tamoxifen times 1 year, letrozole times 4 years. 2008 recurrence involving left lower lobe parenchymal and hilar metastases. Exemestane 2008 - 2012. 2012, right choroidal (retinal) recurrence ; lung and bone progression. -Right orbit radiation. Faslodex/denosumab 2012 through September 2015. Letrozole April 2016-February 2020. Palbociclib February 2019-February 2020. Interval History Mrs. Trang Alford is a 70-year-old woman with metastatic breast cancer, currently on everolimus and exemestane. She was noted to have abnormal liver function tests March of this year with CT abdomen and pelvis showing intra- pancreatic ductal dilatation. She had an MRCP last week in [place], which apparently did not show any metastatic liver disease. She was referred to Dr. Santiago who attempted an ERCP but was unsuccessful. She was referred to interventional radiology in [facility] with PTC done. She currently has a biliary bag in place. There is a plan for her to have a metallic biliary stent to be placed later this week. Symptom-nevarez, Mrs. Alford is still greatly troubled by fatigue. She reports that her appetite has improved slightly, but she continues to poor taste sensation. She reports no dark urine. No nausea and vomiting. She still feels fogginess in mental acuity. Allergies Coded Allergies: gabapentin (Verified Allergy, Unknown, 03/17/20) meperidine (Verified Adverse Reaction, Mild, Vomiting, 11/30/18) Home Medications Reported Medications Exemestane (Exemestane) 25 Mg Tablet, 25 MG PO DAILY 04/29/20 Everolimus (Afinitor) 10 Mg Tablet, 5 MG PO DAILY 04/29/20 Insulin Glargine,Hum.rec.anlog (Lantus Solostar) 100 Unit/1 Ml Insuln.pen, DAILY SLIDING SCALE 04/29/20 Oxybutynin Chloride (Oxybutynin Chloride ER) 10 Mg Tab.er.24, 10 MG PO DAILY 03/17/20 Apixaban (Eliquis) 5 Mg Tablet, 5 MG PO BID 12/08/19 Lidocaine (Lidocaine Pain Relief) 1 Each Adh..patch, 1 PATCH TOP DAILY APPLY TO LOWER BACK 09/11/19 Loratadine (Claritin) 10 Mg Cap, 10 MG PO PRN 06/10/18 Calcium Citrate/Vitamin D3 (Calcium Cit 200-Vit D3 250 Tab) 1 Tab Tab, 1 TAB PO BID, TAB 06/04/17 Multivitamins (Thera M Plus Tablet) 1 Tab Tab, 1 TAB PO DAILY, TAB 06/04/17 Venlafaxine HCl (Effexor Xr) 37.5 Mg Cap, 37.5 MG PO DAILY 06/04/17 Atorvastatin Calcium (Lipitor) 20 Mg Tab, 20 MG PO QHS, TAB 06/04/17 Pantoprazole Sodium (Protonix) 40 Mg Tab, 40 MG PO DAILY 06/04/17 Discontinued Reported Medications Metformin HCl (Metformin HCl ER) 500 Mg Tab.er.24h, 1000 MG PO BID 03/17/20 Glipizide (Glipizide) 10 Mg Tablet, 10 MG PO BID, TAB 09/11/19 Discontinued Scripts Fluconazole (Fluconazole) 100 Mg Tablet, 200 MG PO DAILY for 11 Days, #22 TAB Prov:PAOLO FOOTE D.ONancy 03/22/20 Doxycycline Hyclate (Doxycycline Hyclate) 100 Mg Tablet, 100 MG PO BID for 7 Days, #14 TAB Prov:PAOLO FOOTE D.ONancy 03/22/20 Dexamethasone (Dexamethasone) 0.5 Mg/5 Ml Elixir, 10 ML PO QID for MUCOSITIS for 4 Days, #160 ML 6 Refills Prov:Megan David MD 02/19/20 Past Medical History Past Medical History: Metastatic breast cancer. TIA. Pulmonary embolism. Past Surgical History: section. Right breast lumpectomy. Family History: A maternal aunt had breast cancer. Her father had prostate cancer. Social History: Former smoker having quit smoking in 1983. She is to drink beer 2-3 on weekends but none in the long while. . Lives with . Review of Systems General: Reports: Fatigue; Denies: Chills, Night Sweats, Malaise, Normal Appetite Constitutional: Reports: Weakness, Fatigue; Denies: Chills, Fever, Malaise, Night Sweats, Weight Loss, Lethargy, Normal appetite Eyes: Denies: Pain, Vision change, Conjunctivae inflammation, Eyelid inflammation, Redness HEENT: Reports: Other Symptoms (poor taste sensation.); Denies: Head Aches, Ear Pain, Dysphagia, Sinus Congestion, Post Nasal Drip, Sore Throat, Epistaxis Skin: Denies: Rash, Lesions, Jaundice, Bruising Pulmonary: Denies: Dyspnea, Cough, Pleuritic Chest Pain Cardiovascular: Denies: Chest Pain, Palpitations, Orthopnea, Paroxysmal Noc. Dyspnea, Edema, Lt Headedness Gastrointestinal: Denies: Nausea, Vomiting, Abdominal Pain, Diarrhea, Constipation, Melena, Hematochezia Genitourinary: Denies: Dysuria, Frequency, Incontinence, Hematuria, Retention Hematologic: Denies: Bruising, Bleeding Excessively, Petecchia, Purpura, Enlarged Lymph Nodes Endocrine: Denies: Polydipsia, Polyphagia, Polyuria, Heat Intolerance, Cold Intolerance Musculoskeletal: Denies: Neck pain, Shoulder pain, Arm pain, Back pain, Hand pain, Leg pain, Foot pain, Joint pain, Muscle pain, Spasms, Gout, Joint sweling, Muscle stiffness, Midthoracic pain Neurological: Reports: Other Symptoms (increased fogginess in mental acuity); Denies: Weakness, Numbness, Incoordination, Change in Speech, Confusion, Seizures Psych: Reports: Mood Normal; Denies: Anxiety, Depression, Memory Issues, Thoughts of Self Harm, Anger, Thoughts of harming Other Physical Examination General Exam: Positive: Alert, Cooperative, No Acute Distress, Oriented Times Three Eye Exam: Positive: PERRLA, Conjunctiva & lids normal, EOMI; Negative: Sclera icteric, Ptosis ENT EXAM: Positive: Atraumatic, Mucous membr. moist/pink, Pharynx Normal, Tongue Midline, Nares Patent; Negative: Pharyngeal Edema Neck Exam: Positive: Supple; Negative: JVD, Thyromegaly, Lymphadenopathy Chest Exam: Positive: Clear to auscultation, Normal air movement; Negative: Rales, Rhonchi, Wheezing Heart Exam: Positive: Rate Normal, Regular Rhythm, Normal S1, Normal S2; Negative: Gallops, Murmurs, Rubs Abdomen Exam: Positive: Normal bowel sounds, Soft; Negative: Tenderness, Hepatospenomegaly, Mass, Hernia Extremity Exam: Positive: Normal pulses; Negative: Clubbing, Cyanosis, Edema, Tenderness, Swelling Skin Exam: Positive: Nl turgor and temperature; Negative: Rash, Breakdown, Lesion, Pruritus Neuro Exam: Positive: Normal Gait, Normal Speech, Normal Tone Psych Exam: Positive: Mental status NL, Mood NL, Oriented x 3; Negative: Anxiety Ht / Wt Ht / Wt Height:5 Feet 4 Inches Weight: 58.700 Kg Vital Signs Vital Signs Date Time Temp Pulse Resp B/P (MAP) Pulse Ox O2 Delivery O2 Flow Rate FiO2 04/29/20 14:24 96.9 110 18 126/78 (94) 98 Room Air Assessment/Plan 70-year-old woman with metastatic breast cancer, currently on exemestane and everolimus started second week of March 2020. More recent clinical course, suggestive of a more rapid growth of metastatic disease, particularly in pancreas as opposed to previously indolent disease. I discussed that chemotherapy may be appropriate at this time. I discussed different chemotherapy regimens mainly single agent chemotherapy such capecitabine chemotherapy or paclitaxel chemotherapy. She wanted more time to think about this and was not particularly interested in switching at this point as she is being considered for a stent placement later this week. Liver function tests noted to have significantly improved since PTC and biliary drain placement. CC TO: CC TO: Primary Care Provider: Sveta Davies Referring Provider: NEISHA TO MD Apr 29, 2020 15:32
[~2020-05-10] VITALS: Ht 162.6 cm; Wt 57.8 kg
[~2020-05-10 13:59] MED LIST changes: +DENOSUMAB (XGEVA) 120MG/1.7ML VIAL (J0897 PER 1MG) (FOR ONCOLOGY) SC ONE
[2020-05-10 14:45] VITALS: BP 105/72
[2020-05-10 15:08] LABS: BASO # 0.1 10^3/uL (0.0-0.2); BASO % 0.8 % (0.0-1.0); EOS # 0.1 10^3/uL (0.0-0.5); EOS % 2.1 % (0.0-3.0); HEMATOCRIT 27.2 % (36.0-47.0); HEMOGLOBIN 8.6 g/dl (12.0-15.5); LYMPH # 0.7 10^3/uL (1.5-5.0); LYMPH % 11.6 % (24.0-44.0); MEAN CORPUSCULAR HEMOGLOBIN 27.6 pg (27.0-33.0); MEAN CORPUSCULAR HGB CONC 31.6 g/dl (32.0-36.5); MEAN CORPUSCULAR VOLUME 87.2 fl (80.0-96.0); MONO # 0.7 10^3/uL (0.0-0.8); MONO % 11.2 % (0.0-5.0); NEUTROPHILS # 4.6 10^3/uL (1.5-8.5); PLATELET COUNT, AUTOMATED 526 10^3/uL (150-450); RED BLOOD COUNT 3.12 10^6/uL (4.00-5.40); WHITE BLOOD COUNT 6.3 10^3/uL (4.0-10.0)
[2020-05-10 15:20] LABS: ALBUMIN 2.1 GM/DL (3.2-5.2); ALT/SGPT 28 U/L (12-78); BILIRUBIN,TOTAL 0.5 MG/DL (0.2-1.0); BLOOD UREA NITROGEN 11 MG/DL (7-18); CALCIUM LEVEL 9.3 MG/DL (8.8-10.2); CARBON DIOXIDE LEVEL 21 MEQ/L (21-32); CHLORIDE LEVEL 103 MEQ/L (98-107); CREATININE FOR GFR 0.87 MG/DL (0.55-1.30); GLOMERULAR FILTRATION RATE > 60.0 (>39); GLUCOSE, FASTING 207 MG/DL (70-100); POTASSIUM SERUM 3.3 MEQ/L (3.5-5.1); SODIUM LEVEL 133 MEQ/L (136-145); TOTAL PROTEIN 7.6 GM/DL (6.4-8.2)
--- NOTE | 2020-05-10 16:13 | MEDONCPDOC ---
Medical Oncology Office Note Date of Service: May 10, 2020 Diagnosis/Treatment History DIAGNOSES: Metastatic ER positive/HER2/yael negative breast cancer with indolent recurrence sequentially involving retina, skeleton and lymph nodes over many years. Most recently with a 03/2019 PET showing suspicious left hilar hypermetabolic node after several years [facility]; followed closely in [place] by Dr Estella Bass MD. New, biopsy proven, pancreatic head breast cancer metastatic focus January/2020. CURRENT THERAPY: Exemestane 25 mg daily, and everolimus 10 mg daily second week of March 2020. Denosumab q. 3 months. TREATMENT HISTORY: Right breast stage IIA, T2N0, ER/TX positive, HER2 negative invasive ductal carcinoma in 1998 treated with AC times four cycles, radiation, tamoxifen times 1 year, letrozole times 4 years. 2008 recurrence involving left lower lobe parenchymal and hilar metastases. Exemestane 2008 - 2012. 2012, right choroidal (retinal) recurrence ; lung and bone progression. -Right orbit radiation. Faslodex/denosumab 2012 through September 2015. Letrozole April 2016-February 2020. Palbociclib February 2019-February 2020. Interval History Mrs. Trang Alford is a 70-year-old woman with metastatic breast cancer, currently on Everolimus and exemestane. She underwent pancreatic duct stent placement and removal of biliary tube yesterday in [place]. She reports improvement in her energy levels, as well as appetite, but she still has lost weight since her last visit here. She has no abdominal pains, but does have some abdominal soreness at present. No nausea, no vomiting. No fever. Allergies Coded Allergies: gabapentin (Verified Allergy, Unknown, 03/17/20) meperidine (Verified Adverse Reaction, Mild, Vomiting, 11/30/18) Home Medications Reported Medications Exemestane (Exemestane) 25 Mg Tablet, 25 MG PO DAILY 04/29/20 Everolimus (Afinitor) 10 Mg Tablet, 5 MG PO DAILY 04/29/20 Insulin Glargine,Hum.rec.anlog (Lantus Solostar) 100 Unit/1 Ml Insuln.pen, DAILY SLIDING SCALE 04/29/20 Oxybutynin Chloride (Oxybutynin Chloride ER) 10 Mg Tab.er.24, 10 MG PO DAILY 03/17/20 Apixaban (Eliquis) 5 Mg Tablet, 5 MG PO BID 12/08/19 Lidocaine (Lidocaine Pain Relief) 1 Each Adh..patch, 1 PATCH TOP DAILY APPLY TO LOWER BACK 09/11/19 Loratadine (Claritin) 10 Mg Cap, 10 MG PO PRN 06/10/18 Calcium Citrate/Vitamin D3 (Calcium Cit 200-Vit D3 250 Tab) 1 Tab Tab, 1 TAB PO BID, TAB 06/04/17 Multivitamins (Thera M Plus Tablet) 1 Tab Tab, 1 TAB PO DAILY, TAB 06/04/17 Venlafaxine HCl (Effexor Xr) 37.5 Mg Cap, 37.5 MG PO DAILY 06/04/17 Atorvastatin Calcium (Lipitor) 20 Mg Tab, 20 MG PO QHS, TAB 06/04/17 Pantoprazole Sodium (Protonix) 40 Mg Tab, 40 MG PO DAILY 06/04/17 Past Medical History Past Medical History: Metastatic breast cancer. TIA. Pulmonary embolism. Past Surgical History: section. Right breast lumpectomy. Family History: A maternal aunt had breast cancer. Her father had prostate cancer. Social History: Former smoker having quit smoking in 1983. She is to drink beer 2-3 on weekends but none in the long while. . Lives with . Review of Systems General: Reports: Fatigue; Denies: Chills, Night Sweats, Malaise, Normal Appetite Constitutional: Reports: Weakness, Fatigue; Denies: Chills, Fever, Malaise, Night Sweats, Weight Loss, Lethargy, Normal appetite Eyes: Denies: Pain, Vision change, Conjunctivae inflammation, Eyelid inflammation, Redness HEENT: Reports: Other Symptoms (poor taste sensation.); Denies: Head Aches, Ear Pain, Dysphagia, Sinus Congestion, Post Nasal Drip, Sore Throat, Epistaxis Skin: Denies: Rash, Lesions, Jaundice, Bruising Pulmonary: Denies: Dyspnea, Cough, Pleuritic Chest Pain Cardiovascular: Denies: Chest Pain, Palpitations, Orthopnea, Paroxysmal Noc. Dyspnea, Edema, Lt Headedness Gastrointestinal: Reports: Abdominal Pain (mild abdominal wall soreness from previous biliary site.); Denies: Nausea, Vomiting, Diarrhea, Constipation, Melena, Hematochezia Genitourinary: Denies: Dysuria, Frequency, Incontinence, Hematuria, Retention Hematologic: Denies: Bruising, Bleeding Excessively, Petecchia, Purpura, Enlarged Lymph Nodes Endocrine: Denies: Polydipsia, Polyphagia, Polyuria, Heat Intolerance, Cold Intolerance Musculoskeletal: Denies: Neck pain, Shoulder pain, Arm pain, Back pain, Hand pain, Leg pain, Foot pain, Joint pain, Muscle pain, Spasms, Gout, Joint sweling, Muscle stiffness, Midthoracic pain Neurological: Reports: Other Symptoms (slight decrease in mental acuity); Denies: Weakness, Numbness, Incoordination, Change in Speech, Confusion, Seizures Psych: Reports: Mood Normal; Denies: Anxiety, Depression, Memory Issues, Thoughts of Self Harm, Anger, Thoughts of harming Other Physical Examination General Exam: Positive: Alert, Cooperative, No Acute Distress, Oriented Times Three; Negative: Mild Distress, Severe Distress Eye Exam: Positive: PERRLA, Conjunctiva & lids normal, EOMI; Negative: Sclera icteric, Ptosis ENT EXAM: Positive: Atraumatic, Mucous membr. moist/pink, Pharynx Normal, Tongu e Midline, Nares Patent; Negative: Pharyngeal Edema Neck Exam: Positive: Supple; Negative: JVD, Thyromegaly, Lymphadenopathy Chest Exam: Positive: Clear to auscultation, Normal air movement; Negative: Rales, Rhonchi, Wheezing Heart Exam: Positive: Rate Normal, Regular Rhythm, Normal S1, Normal S2; Negative: Tachycardic, Bradycardic, Gallops, Murmurs, Rubs Abdomen Exam: Positive: Normal bowel sounds, Soft, Other (bandage over previous biliary site.); Negative: BS Hyperactive, BS Hypoactive, Tenderness, Hepatospenomegaly, Mass, Hernia Extremity Exam: Positive: Normal pulses; Negative: Clubbing, Cyanosis, Edema, Tenderness, Swelling Skin Exam: Positive: Nl turgor and temperature; Negative: Rash, Breakdown, Lesion, Pruritus Neuro Exam: Positive: Normal Gait, Normal Speech, Normal Tone Psych Exam: Positive: Mental status NL, Mood NL, Oriented x 3; Negative: Anxiety Ht / Wt Ht / Wt Height:5 Feet 4 Inches Weight: 58.700 Kg Vital Signs Vital Signs Label Value Date Time Patient Temperature 97.5 degrees F 05/10/20 1445 Temperature Source Temporal 05/10/20 1445 Pulse 112 05/10/20 1445 Respiratory Rate 18 bpm 05/10/20 1445 Blood Pressure Assessment 105/72 (83) 9/4/20 1445 Bedside Pulse Oximetry 98 % 05/10/20 1445 Item Value Date Time Oxygen Delivery Method Room Air 05/10/20 1445 Laboratory Data Item Value Date Time White Blood Count 6.3 10^3/uL 05/10/20 1443 Red Blood Count 3.12 10^6/uL L 05/10/20 1443 Hemoglobin 8.6 g/dl L 05/10/20 1443 Hematocrit 27.2 % L 05/10/20 1443 Mean Corpuscular Volume 87.2 fl 05/10/20 1443 Mean Corpuscular Hemoglobin 27.6 pg 05/10/20 1443 Mean Corpuscular Hemoglobin Concent 31.6 g/dl L 05/10/20 1443 Red Cell Distribution Width 18.6 % H 05/10/20 1443 Platelet Count 526 10^3/uL H 05/10/20 1443 Immature Granulocyte % (Auto) 0.3 % 05/10/20 1443 Neutrophils (%) (Auto) 74.0 % H 05/10/20 1443 Lymphocytes (%) (Auto) 11.6 % L 05/10/20 1443 Monocytes (%) (Auto) 11.2 % H 05/10/20 1443 Eosinophils (%) (Auto) 2.1 % 05/10/20 1443 Basophils (%) (Auto) 0.8 % 05/10/20 1443 Neutrophils # (Auto) 4.6 10^3/uL 05/10/20 1443 Lymphocytes # (Auto) 0.7 10^3/uL L 05/10/20 1443 Monocytes # (Auto) 0.7 10^3/uL 05/10/20 1443 Eosinophils # (Auto) 0.1 10^3/uL 05/10/20 1443 Basophils # (Auto) 0.1 10^3/uL 05/10/20 1443 Item Value Date Time Sodium Level 133 MEQ/L L 05/10/20 1443 Potassium Level 3.3 MEQ/L L 05/10/20 1443 Chloride Level 103 MEQ/L 05/10/20 1443 Carbon Dioxide Level 21 MEQ/L 05/10/20 1443 Anion Gap 9 MEQ/L 05/10/20 1443 Blood Urea Nitrogen 11 MG/DL 05/10/20 1443 Creatinine 0.87 MG/DL 05/10/20 1443 Glomerular Filtration Rate > 60.0 05/10/20 1443 Fasting Glucose 207 MG/DL H 05/10/20 1443 Calcium Level 9.3 MG/DL 05/10/20 1443 Total Bilirubin 0.5 MG/DL 05/10/20 1443 Aspartate Amino Transf (AST/SGOT) 28 U/L 05/10/20 1443 Alanine Aminotransferase (ALT/SGPT) 28 U/L 05/10/20 1443 Alkaline Phosphatase 244 U/L H 05/10/20 1443 Total Protein 7.6 GM/DL 05/10/20 1443 Albumin 2.1 GM/DL L 05/10/20 1443 Albumin/Globulin Ratio 0.4 L 05/10/20 1443 Assessment/Plan 70-year-old woman with metastatic breast cancer, currently on exemestane and everolimus started second week of March 2020. More recent clinical course, suggestive of a more rapid growth of metastatic disease, particularly in pancreas as opposed to previously indolent disease. Tumor markers also increasing. Discussed starting chemotherapy, specifically capecitabine chemotherapy. Risks and benefits discussed with the patient. She wanted to hold off on this. Await results of tumor markers from today. She is open to starting chemotherapy if tumor markers should continue to rise. CC TO: CC TO: Primary Care Provider: Sveta Davies Referring Provider: NEISHA TO MD May 10, 2020 14:44
[2020-06-13 09:37] LABS: BASO # 0.1 10^3/uL (0.0-0.2); BASO % 1.3 % (0.0-1.0); EOS # 0.2 10^3/uL (0.0-0.5); EOS % 2.5 % (0.0-3.0); HEMATOCRIT 31.2 % (36.0-47.0); HEMOGLOBIN 9.9 g/dl (12.0-15.5); LYMPH # 1.1 10^3/uL (1.5-5.0); LYMPH % 11.7 % (24.0-44.0); MEAN CORPUSCULAR HEMOGLOBIN 33.3 pg (27.0-33.0); MEAN CORPUSCULAR HGB CONC 31.7 g/dl (32.0-36.5); MEAN CORPUSCULAR VOLUME 105.1 fl (80.0-96.0); MONO # 1.4 10^3/uL (0.0-0.8); MONO % 14.6 % (0.0-5.0); NEUTROPHILS # 6.7 10^3/uL (1.5-8.5); NEUTROPHILS % 69.2 % (36.0-66.0); PLATELET COUNT, AUTOMATED 705 10^3/uL (150-450); RED BLOOD COUNT 2.97 10^6/uL (4.00-5.40); WHITE BLOOD COUNT 9.7 10^3/uL (4.0-10.0)
[2020-06-13 17:21] LABS: BASO % 0.5 % (0.0-1.0); EOS # 0.1 10^3/uL (0.0-0.5); EOS % 1.7 % (0.0-3.0); HEMATOCRIT 31.2 % (36.0-47.0); HEMOGLOBIN 10.1 g/dl (12.0-15.5); INR 1.06; LYMPH % 12.3 % (24.0-44.0); MEAN CORPUSCULAR HEMOGLOBIN 31.5 pg (27.0-33.0); MEAN CORPUSCULAR HGB CONC 32.4 g/dl (32.0-36.5); MEAN CORPUSCULAR VOLUME 97.2 fl (80.0-96.0); MONO # 0.9 10^3/uL (0.0-0.8); MONO % 10.5 % (0.0-5.0); NEUTROPHILS # 6.2 10^3/uL (1.5-8.5); NEUTROPHILS % 74.6 % (36.0-66.0); PARTIAL THROMBOPLASTIN TIME 34.5 SECONDS (24.2-38.5); PLATELET COUNT, AUTOMATED 331 10^3/uL (150-450); RED BLOOD COUNT 3.21 10^6/uL (4.00-5.40); WHITE BLOOD COUNT 8.3 10^3/uL (4.0-10.0)
--- NOTE | 2020-06-14 07:04 | MEDONC ---
DATE OF VISIT: 04/03/2020 DIAGNOSIS: Metastatic breast cancer currently on exemestane (Aromasin) and everolimus (Afinitor). HISTORY OF PRESENT ILLNESS: Ms. Alford is currently on everolimus (Afinitor) and exemestane for metastatic breast cancer. She was initially diagnosed with breast cancer in 1998 and had metastatic recurrence in 2008 for which she was on exemestane. In 2013, she was diagnosed with metastatic disease to the right eye. She was on palbociclib and fulvestrant in 2013, but switched to palbociclib and letrozole in 2016 when she developed side effects from fulvestrant. She was diagnosed earlier this year with pancreatic metastasis from breast cancer and was advised to start exemestane and everolimus, which she did start four weeks ago. However, subsequently she developed pneumonia and was treated for MRSA pneumonia. At that time, exemestane and everolimus were put on hold. After discharge, she restarted exemestane and everolimus and has been on this for a week now. She reports that she is feeling better. She still has a dry cough. She still feels fatigued. She has had no fevers after discharge from the hospital. She still has a poor appetite and has lost weight recently. She has had no night sweats. She occasionally has headaches. She tells me that she had an MRI of her brain when she was in the hospital earlier this month, which came back negative for metastatic disease. No dizziness. No eyesight changes at present, although she can hardly see through her right eye. No chest pains. No palpitations. She has had shortness of breath when she walks around. No nausea. No vomiting. No abdominal pain. No back pain. No bone pains. She reports diarrhea while she was on antibiotics, but she has not had any diarrhea since completing antibiotic treatment for pneumonia. No constipation. No urinary problems. No easy bruising. No rectal, urinary, vaginal, or nose bleeds. No mucositis and no edema. FAMILY HISTORY: Her paternal grandmother had an unknown type of cancer possibly colon or stomach. PERSONAL HISTORY: She is a former smoker having quit smoking in 1983. She drinks alcoholic beverages occasionally on weekends. PHYSICAL EXAMINATION: VITAL SIGNS: She weighed 60.7 kg. Blood pressure 115/74, O2 saturation 98% on room air, temperature 97.1, heart rate 100 per minute. HEENT: Normocephalic, atraumatic. Pinkish conjunctivae. Anicteric sclerae. No oral mucosal lesions. No palpable cervical nodes. LUNGS: Fair air entry. No rales, no rhonchi, no wheeze. HEART: S1, S2 regular. No murmur. No gallop. ABDOMEN: Soft, nontender, no guarding. No palpable masses. No hepatosplenomegaly. EXTREMITIES: No calf swelling, no calf tenderness, and no pedal edema. No clubbing. No cyanosis. NEUROLOGIC: Alert, oriented to time, place, and person. IMPRESSION AND PLAN: Ms. Alford is currently on everolimus and exemestane and was advised to continue on this. She is currently on a slight reduction of everolimus dose as advised to her by her oncologist in [place] at 5 mg daily. She was advised to continue on this. She tells me a PET scan is planned for her by Dr. Gerard in [place] in three to four months. In the meantime, we will continue monitoring her tumor markers. Follow-up appointment in two weeks. RAYSHAWN
--- NOTE | 2020-06-14 07:06 | MEDONC ---
DATE OF VISIT: 04/17/2020 DIAGNOSIS: Metastatic breast cancer with pancreatic metastasis, on everolimus and exemestane treatment. HISTORY OF PRESENT ILLNESS: Ms. Alford was noted to have increased liver function tests by Dr. Davies and is being sent for an magnetic resonance cholangiopancreatography (MRCP) on Wednesday. She had a CT scan back on 03/18/2020, which showed intrapancreatic ductal dilatation, new from previous, with no evidence of metastatic disease in the liver. Symptom-nevarez, Ms. Alford has been feeling very tired. She has had a poor appetite and has had weight loss of about 2 pounds since her last visit here 2 weeks ago. She reports no fevers, no night sweats. Her energy levels are poor. No headaches, no dizziness. No chest pain. She has shortness of breath on mild exertion. No cough. No nausea, no vomiting, no abdominal pain, no diarrhea, no constipation. No urinary problems. No easy bruising and no other bleeding issues. No peripheral edema. She reports dark- colored urine and pale stools. She has pruritus around her abdominal area. She mostly is able to take care of her own daily needs but is fatigued most of the time. MEDICATIONS: Eliquis, pantoprazole, venlafaxine. Eliquis was discontinued by Dr. Davies. She is also off most of her diabetic medications and has been started on insulin. PHYSICAL EXAMINATION: She weighed 59.7 kg. Blood pressure 124/73, oxygen saturation 97% on room air, heart rate 100 per minute, temperature 97.5. She had pinkish conjunctivae, slightly icteric sclerae. Slightly dry oral mucosa. No oral mucosal lesions. No palpable cervical nodes. Lungs were clear. No rales or rhonchi, no wheeze. S1, S2 regular. Abdomen was soft, non-distended. No guarding. Positive bowel sounds. No palpable masses. No hepatosplenomegaly. Extremities: No calf swelling, no calf tenderness. No pedal edema, no clubbing, no cyanosis. Neurological: Alert, ambulatory without assistance. No lateralizing signs. IMPRESSION AND PLAN: Ms. Heller is a 69-year-old woman with known metastatic breast cancer with pancreatic metastasis, who now presents with elevated liver function tests with CT scan showing intrapancreatic ductal dilatation. She is scheduled for an MRCP on Wednesday to assess for metastatic disease. She has been referred by Dr. Davies to Dr. Santiago in [place] for endoscopic retrograde cholangiopancreatography (ERCP), but Dr. Santiago wants to wait for the MRCP before proceeding. I discussed that if there is evidence to show rapidly progressing disease, chemotherapy may be considered. MTDD
[2020-07-04 15:31] LABS: ALBUMIN 2.8 GM/DL (3.2-5.2); ALT/SGPT 335 U/L (12-78); BILIRUBIN,TOTAL 0.6 MG/DL (0.2-1.0); BLOOD UREA NITROGEN 11 MG/DL (7-18); CA15-3 ANTIGEN 33.4 U/ML (<32.4); CA19-9 TUMOR MARKER,CARBOHYDRA 38.3 U/ML (<35.0); CALCIUM LEVEL 9.1 MG/DL (8.8-10.2); CARBON DIOXIDE LEVEL 26 MEQ/L (21-32); CHLORIDE LEVEL 100 MEQ/L (98-107); CREATININE FOR GFR 0.97 MG/DL (0.55-1.30); GLOMERULAR FILTRATION RATE > 60.0 (>39); GLUCOSE, FASTING 362 MG/DL (70-100); SODIUM LEVEL 133 MEQ/L (136-145); TOTAL PROTEIN 7.6 GM/DL (6.4-8.2)
[2020-07-13 08:52] LABS: ALBUMIN 2.7 GM/DL (3.2-5.2); ALT/SGPT 337 U/L (12-78); BILIRUBIN,TOTAL 4.1 MG/DL (0.2-1.0); BLOOD UREA NITROGEN 8 MG/DL (7-18); CA19-9 TUMOR MARKER,CARBOHYDRA 173.3 U/ML (<35.0); CALCIUM LEVEL 8.5 MG/DL (8.8-10.2); CARBON DIOXIDE LEVEL 26 MEQ/L (21-32); CHLORIDE LEVEL 101 MEQ/L (98-107); CREATININE FOR GFR 0.81 MG/DL (0.55-1.30); GLOMERULAR FILTRATION RATE > 60.0 (>39); GLUCOSE, FASTING 285 MG/DL (70-100); POTASSIUM SERUM 3.5 MEQ/L (3.5-5.1); SODIUM LEVEL 135 MEQ/L (136-145); TOTAL PROTEIN 7.3 GM/DL (6.4-8.2)
== END | disposition home or self-care (01) ==
LOC: M ONCM 06-10 09:39
PROVIDERS: ATTEND Internal Medicine Medical Oncology
DX: C50.111 Malignant neoplasm of central portion of right female breast (principal); C79.51 Secondary malignant neoplasm of bone; C78.00 Secondary malignant neoplasm of unspecified lung; C69.91 Malignant neoplasm of unspecified site of right eye; C77.1 Secondary and unspecified malignant neoplasm of intrathoracic lymph nodes; E11.9 Type 2 diabetes mellitus without complications; Z79.899 Other long term (current) drug therapy
CPT/HCPCS: 36415; 71046; 80053; 82378; 82728; 83036; 83550; 85025; 85027; 85379; 85610; 85730; 86300; 86301; 92950; 96372; 96374; 99284; G0463; J0897

== ENCOUNTER 2020-05-10 20:37 | Emergency (ER) | payer MEDICARE, OTHER ==
[~2020-05-10 20:37] MED LIST changes: -DENOSUMAB (XGEVA) 120MG/1.7ML VIAL (J0897 PER 1MG) (FOR ONCOLOGY) SC ONE
[2020-05-10] MEDS ORDERED: SODIUM BICARBONATE 8.4% INJ 50 ML SYRINGE ONE (20:38)
== END 2020-05-10 20:42 | disposition expired ==
LOC: M ED 20:37
DX: I46.9 Cardiac arrest, cause unspecified (principal); Z98.890 Other specified postprocedural states; C50.919 Malignant neoplasm of unspecified site of unspecified female breast; Z88.8 Allergy status to other drugs, medicaments and biological substances; Z79.899 Other long term (current) drug therapy; Z79.01 Long term (current) use of anticoagulants; Z85.118 Personal history of other malignant neoplasm of bronchus and lung

== ENCOUNTER → 2020-05-11 | Outpatient (REF) | LOC: M LAB 11:01 ==